=== PATIENT | female | born 1945 | race Caucasian/White ===

== ENCOUNTER → 2022-06-22 10:51 | Outpatient (CLI) | payer MEDICARE, SELFPAY ==
[2022-06-22 19:31] LABS: Alanine Aminotransferase 50 IU/L (<35); Albumin 3.3 g/dL (3.5-5.0); Albumin Globulin Ratio 1.2 (1.0-2.8); Alkaline Phosphatase 130 U/L (38-126); Aspartate Aminotransferase 62 IU/L (14-36); BUN Creatinine Ratio 31.8 (6-22); Bilirubin Total 0.4 mg/dL (0.2-1.3); Blood Urea Nitrogen 21 mg/dL (7-17); Calcium 8.6 mg/dL (8.4-10.2); Carbon Dioxide 26 mmol/L (22-32); Chloride 101 mmol/L (98-107); Estimated Glomerular Filt Rate > 60 mL/min (>60); Globulin 2.8 g/dL (1.7-4.1); Glucose 103 mg/dL (80-110); HEMOLYSIS < 15 (0-50); Potassium 4.5 mmol/L (3.4-5.1); Sodium 135 mmol/L (137-145); Total Protein 6.1 g/dL (6.3-8.2)
[2022-06-22 20:12] LABS: Add Manual Diff / Slide Review NO; Basophils Absolute Auto 100 /uL (0-100); Basophils Percent Auto 0.6 % (0-2); Eosinophils Absolute Auto 100 /uL (0-450); Eosinophils Percent Auto 0.6 % (2-4); Hematocrit 32.7 % (36-46); Lymphocytes Absolute Auto 1300 /uL (1100-4500); Lymphocytes Percent Auto 11.7 % (25-40); Mean Corpuscular HGB Conc 33.7 % (30-36); Mean Corpuscular Hemoglobin 28.6 PG (26-34); Mean Corpuscular Volume 84.8 fL (80-100); Monocytes Absolute Auto 900 /uL (0-900); Neutrophils Absolute Auto 8500 /uL (1500-7000); Neutrophils Percent Auto 79.1 % (50-75); Platelet Count 335 X10^3/uL (150-400); Red Blood Cell Count 3.86 X10^6/uL (4.0-5.2); Red Cell Distribution Width 14.5 % (11.6-14.8); White Blood Cell Count 10.7 X10^3/uL (4.5-11.0)
--- NOTE | 2022-06-23 12:32 | PC.NURSE ---
Daughter in law called ED with questions as to why patient was needing to be seen in ED. Pt was referred by [facility] provider who spoke with Dr. Worthington. I spoke with Dr. Worthington who told me that after speaking with the [facility] provider and reviewing the patient she did not feel that the patient needed to be seen emergently and that out patient follow up was most likely appropriate. After confirming identity and clearing privacy concerns, I discussed this with the DIL. She states that patient has improved since visit, that other issues are chronic in nature and that patient did not seem off her baseline to her. Pt is eating and drinking well, has no fever or pain and wants to go out for her usual hour long walk and do her squats. I informed her that we did not see patient and that the [facility] provider has therefore I am only passing along a message regarding the communication that occurred. I encouraged her to seek medical attention for her mother in law if there are any changes, concerns and to reach out to the [facility] provider. She verbalized understanding and agreement.
== END ==
PROVIDERS: PCP Physician Assistant; Visit Provider Physician Assistant
DX: Z91.89 Other specified personal risk factors, not elsewhere classified (principal); R39.15 Urgency of urination; R39.0 Extravasation of urine; R15.9 Full incontinence of feces
CPT/HCPCS: 80053; 85025; 87077; 87086; 87177; 87186; 87329

== ENCOUNTER 2023-08-22 14:19 | Inpatient (IN) | payer MEDICARE, SELFPAY ==
[2023-08-22] VITALS (22 sets, daily range): BP systolic 107–121; BP diastolic 63–69; PULSE 57–69; RESP 10–18; TEMP 36.2–36.5; O2SAT 93–100; BMI 18.6; BMI 18.8
--- NOTE | 2023-08-22 14:35 | DI.RAD.S_ITS ---
PROCEDURE: XR HIP W PEL IF DONE LT 2V INDICATIONS: GLF hip pain TECHNIQUE: AP pelvis with lateral view(s) of the left hip(s). COMPARISON: None. FINDINGS: Bones: Subcapital left femoral neck fracture. Pelvic ring appears intact. No suspicious bony lesions. Soft tissues: The visualized bowel gas pattern is normal. No suspicious soft tissue calcifications. IMPRESSION: Mildly displaced left femoral neck fracture. Dictated by: Peggy Nolen MD, PhD on 08/22/2023 at 15:30 Approved by: Peggy Nolen MD, PhD on 08/22/2023 at 15:31
--- NOTE | 2023-08-22 15:38 | DI.RAD.S_ITS ---
PROCEDURE: XR CHEST 1V INDICATIONS: fall TECHNIQUE: One view of the chest was acquired. COMPARISON: None. FINDINGS: Surgical changes and devices: Dual lead cardiac pacer. Lungs and pleura: Lungs are clear. No pleural effusions or pneumothorax. Mediastinum: Mediastinal contours appear normal. Heart size is normal. Bones and chest wall: No suspicious bony lesions. Overlying soft tissues appear unremarkable. IMPRESSION: No acute cardiopulmonary abnormality is seen. Dictated by: Peggy Nolen MD, PhD on 08/22/2023 at 15:55 Approved by: Peggy Nolen MD, PhD on 08/22/2023 at 15:55
--- NOTE | 2023-08-22 15:38 | DI.CT.S_ITS ---
PROCEDURE: CT HEAD/BRAIN WO CON INDICATIONS: fall TECHNIQUE: Noncontrast 4.5 mm thick angled axial sections acquired from the foramen magnum to the vertex, with coronal and sagittal reformats. For radiation dose reduction, the following was used: automated exposure control, adjustment of mA and/or kV according to patient size. COMPARISON: None. FINDINGS: Image quality: Diagnostic. CSF spaces: Basal cisterns are patent. No extra-axial fluid collections. The ventricles are symmetric in size and shape. Brain: No intracranial bleeds or masses. There is cerebral volume loss for age, with resultant ventricular and sulcal prominence. There are periventricular and deep white matter chronic small vessel ischemic changes. 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 There is intracranial internal carotid artery atherosclerosis. Skull and face: Calvarium and visualized facial bones appear intact, without suspicious lesions. Sinuses: Visualized sinuses and mastoids are clear. IMPRESSION: No acute intracranial disease process. Dictated by: Peggy Nolen MD, PhD on 08/22/2023 at 16:24 Approved by: Peggy Nolen MD, PhD on 08/22/2023 at 16:26
[2023-08-22] MEDS: TET,DIPH,PERTUSS(ACELL),VAC/PF 0.5 ML SYRINGE IM (15:48)
[2023-08-22] MEDS: MORPHINE 2 MG/ML INJ IV ×2 (15:48→16:56)
--- NOTE | 2023-08-22 16:07 | ED.FALL ---
HPI - Fall <Ángela Worthington DO - Last Filed: 08/23/23 07:31> General Chief Complaint: Fall Stated Complaint: Fall,hip injury Time Seen by Provider: 08/22/23 15:38 Source: patient and EMS Mode of arrival: EMS History of Present Illness HPI Narrative: Patient 77-year-old female history of hysterectomy, presenting today with ground level fall. She reports that she was a little weak yesterday and today lost her balance falling on [place] left[place] she was ultimately air lifted off. She did hit her head but no loss of consciousness. No antiplatelet or anticoagulation medications. Daughter at bedside reports that she has had some UTIs. She is incontinent with stool and urine. Daughter has noted some blood she thinks it is coming from the vagina despite having a hysterectomy. No fever or chills. Daughter also reports that they do give her packages of electrolytes to help report that she gets frequent lower extremity swelling. Related Data Allergies Allergy/AdvReac Type Severity Reaction Status Date / Time codeine Allergy Verified 08/22/23 14:29 Patient History <Ángela Worthington DO - Last Filed: 08/23/23 07:31> Social History household members: children Smoking Status: Never smoker Smoking Status: Never smoker alcohol intake frequency: other Substance Use Type: does not use Exam <Ángela Worthington DO - Last Filed: 08/23/23 07:31> Initial Vital Signs Initial Vital Signs: Vital Signs Pulse Rate 60 08/22/23 14:28 Respiratory Rate 16 08/22/23 14:28 Pulse Oximetry 99 08/22/23 14:28 GENERAL: Alert pleasant 77-year-old female and in no acute distress. HEENT: Head small abrasion left temporal area,EOMI, pupils reactive, face symmetric, moist mucous membranes, neck supple CARDIOVASCULAR: Regular rate and rhythm without murmurs, rubs or gallops. RESPIRATORY: Breath sounds equal bilaterally, no wheezes rales or rhonchi. ABDOMEN: Soft, nontender. Normoactive bowel sounds all 4 quadrants. No guarding or rebound. EXTREMITIES: Normal range of motion, no clubbing or edema. Neurovascularly intact Tender left hip legs are of equal length distal pedal pulse intact NEUROLOGICAL: Alert and oriented x4. SKIN: Warm, dry, no laceration, no petechiae, no rashes or lesions. <Herbie Huddleston DO - Last Filed: 08/22/23 22:16> Initial Vital Signs Initial Vital Signs: Vital Signs Pulse Rate 60 08/22/23 14:28 Respiratory Rate 16 08/22/23 14:28 Pulse Oximetry 99 08/22/23 14:28 Course <Ángela Worthington DO - Last Filed: 08/23/23 07:31> Orders Ordered: Lactated Ringer's (Lactated Ringers) 1,000 mls @ 100 mls/hr IV CONT BUSHRA Last Admin: 08/22/23 22:50 Dose: 100 mls/hr Documented By: AM Morphine Sulfate (Morphine 2 Mg/Ml Inj) 2 mg IV Q2H PRN PRN Reason: Pain, Moderate (4-6) Last Admin: 08/23/23 00:45 Dose: 2 mg Documented By: FM Naloxone HCl (Naloxone 0.4 Mg/Ml Vial) 0.2 mg IV Q2MIN PRN PRN Reason: Opiate Reversal Ondansetron HCl (Ondansetron 4 Mg/2 Ml Inj) 4 mg IV Q8HR PRN PRN Reason: Nausea And Vomiting Discontinued Medications Diphtheria/Tetanus/Acell Pertussis (Tet,Diph,Pertuss(Acell),Vac/Pf 0.5 Ml Syringe) 0.5 ml IM .ONCE ONE Stop: 08/22/23 15:40 Last Admin: 08/22/23 15:48 Dose: 0.5 ml Documented By: MARIMAR Morphine Sulfate (Morphine 2 Mg/Ml Inj) 2 mg IV NOW ONE Stop: 08/22/23 15:39 Last Admin: 08/22/23 15:48 Dose: 2 mg Documented By: KM Morphine Sulfate (Morphine 2 Mg/Ml Inj) 2 mg IV NOW ONE Stop: 08/22/23 16:47 Last Admin: 08/22/23 16:56 Dose: 2 mg Documented By: KM Morphine Sulfate (Morphine 4 Mg/Ml Inj) 4 mg IV NOW ONE Stop: 08/22/23 18:06 Last Admin: 08/22/23 18:08 Dose: 4 mg Documented By: KM Morphine Sulfate (Morphine 4 Mg/Ml Inj) 2 mg IV Q2HR PENDING SALE TO [facility] Morphine Sulfate (Morphine 4 Mg/Ml Inj) 4 mg IV NOW ONE Stop: 08/22/23 22:02 Last Admin: 08/23/23 00:04 Dose: Not Given Documented By: FM Vital Signs Vital signs: Vital Signs - 8 hr 08/22/23 14:28 08/22/23 14:29 08/22/23 14:30 Temperature 97.7 F Pulse Rate 60 64 58 L Respiratory Rate 16 18 13 Blood Pressure 111/67 Pulse Oximetry 99 99 100 Oxygen Delivery Method Room Air 08/22/23 14:30 08/22/23 15:02 08/22/23 15:23 Temperature Pulse Rate 58 L 57 L Respiratory Rate 18 16 Blood Pressure 113/67 Pulse Oximetry 100 100 Oxygen Delivery Method 08/22/23 15:23 08/22/23 15:30 08/22/23 15:30 Temperature Pulse Rate 60 Respiratory Rate 13 Blood Pressure 117/64 120/67 Pulse Oximetry 100 Oxygen Delivery Method 08/22/23 16:00 08/22/23 16:00 08/22/23 16:30 Temperature Pulse Rate 62 69 Respiratory Rate 12 15 Blood Pressure 116/64 Pulse Oximetry 98 93 Oxygen Delivery Method 08/22/23 17:00 08/22/23 17:12 08/22/23 17:12 Temperature Pulse Rate 57 L 57 L Respiratory Rate 11 L 11 L Blood Pressure 121/69 Pulse Oximetry 96 99 Oxygen Delivery Method 08/22/23 17:30 08/22/23 17:30 08/22/23 18:00 Temperature Pulse Rate 57 L 62 Respiratory Rate 11 L 13 Blood Pressure 116/66 Pulse Oximetry 99 99 Oxygen Delivery Method <Herbie Huddleston DO - Last Filed: 08/22/23 22:16> Orders Ordered: Lactated Ringer's (Lactated Ringers) 1,000 mls @ 100 mls/hr IV CONT BUSHRA Last Admin: 08/22/23 22:50 Dose: 100 mls/hr Documented By: AM Morphine Sulfate (Morphine 2 Mg/Ml Inj) 2 mg IV Q2H PRN PRN Reason: Pain, Moderate (4-6) Last Admin: 08/23/23 00:45 Dose: 2 mg Documented By: FM Naloxone HCl (Naloxone 0.4 Mg/Ml Vial) 0.2 mg IV Q2MIN PRN PRN Reason: Opiate Reversal Ondansetron HCl (Ondansetron 4 Mg/2 Ml Inj) 4 mg IV Q8HR PRN PRN Reason: Nausea And Vomiting Discontinued Medications Diphtheria/Tetanus/Acell Pertussis (Tet,Diph,Pertuss(Acell),Vac/Pf 0.5 Ml Syringe) 0.5 ml IM .ONCE ONE Stop: 08/22/23 15:40 Last Admin: 08/22/23 15:48 Dose: 0.5 ml Documented By: MARIMAR Morphine Sulfate (Morphine 2 Mg/Ml Inj) 2 mg IV NOW ONE Stop: 08/22/23 15:39 Last Admin: 08/22/23 15:48 Dose: 2 mg Documented By: MARIMAR Morphine Sulfate (Morphine 2 Mg/Ml Inj) 2 mg IV NOW ONE Stop: 08/22/23 16:47 Last Admin: 08/22/23 16:56 Dose: 2 mg Documented By: MARIMAR Morphine Sulfate (Morphine 4 Mg/Ml Inj) 4 mg IV NOW ONE Stop: 08/22/23 18:06 Last Admin: 08/22/23 18:08 Dose: 4 mg Documented By: MARIMAR Morphine Sulfate (Morphine 4 Mg/Ml Inj) 2 mg IV Q2HR PENDING SALE TO [facility] Morphine Sulfate (Morphine 4 Mg/Ml Inj) 4 mg IV NOW ONE Stop: 08/22/23 22:02 Last Admin: 08/23/23 00:04 Dose: Not Given Documented By: JAN Vital Signs Vital signs: Vital Signs - 8 hr 08/22/23 14:28 08/22/23 14:29 08/22/23 14:30 Temperature 97.7 F Pulse Rate 60 64 58 L Respiratory Rate 16 18 13 Blood Pressure 111/67 Pulse Oximetry 99 99 100 Oxygen Delivery Method Room Air 08/22/23 14:30 08/22/23 15:02 08/22/23 15:23 Temperature Pulse Rate 58 L 57 L Respiratory Rate 18 16 Blood Pressure 113/67 Pulse Oximetry 100 100 Oxygen Delivery Method 08/22/23 15:23 08/22/23 15:30 08/22/23 15:30 Temperature Pulse Rate 60 Respiratory Rate 13 Blood Pressure 117/64 120/67 Pulse Oximetry 100 Oxygen Delivery Method 08/22/23 16:00 08/22/23 16:00 08/22/23 16:30 Temperature Pulse Rate 62 69 Respiratory Rate 12 15 Blood Pressure 116/64 Pulse Oximetry 98 93 Oxygen Delivery Method 08/22/23 17:00 08/22/23 17:12 08/22/23 17:12 Temperature Pulse Rate 57 L 57 L Respiratory Rate 11 L 11 L Blood Pressure 121/69 Pulse Oximetry 96 99 Oxygen Delivery Method 08/22/23 17:30 08/22/23 17:30 08/22/23 18:00 Temperature Pulse Rate 57 L 62 Respiratory Rate 11 L 13 Blood Pressure 116/66 Pulse Oximetry 99 99 Oxygen Delivery Method MDM - Fall <Ángela Worthington, DO - Last Filed: 08/23/23 07:31> Lab Data 08/22/23 15:55 08/22/23 15:55 Labs: Lab Results 08/22/23 08/22/23 Range/Units 15:55 16:45 WBC 13.5 H (4.5-11.0) X10^3/uL RBC 4.21 (4.0-5.2) X10^6/uL Hgb 10.3 L (12.0-16.0) g/dL Hct 31.7 L (36-46) % MCV 75.3 L (80-100) fL MCH 24.5 L (26-34) PG MCHC 32.5 (30-36) % RDW 16.5 H (11.6-14.8) % Plt Count 316 (150-400) X10^3/uL Neut % (Auto) 90.9 H (50-75) % Lymph % (Auto) 5.2 L (25-40) % [place] % (Auto) 3.5 (3-14) % Eos % (Auto) 0.0 L (2-4) % Baso % (Auto) 0.4 (0-2) % Neut # (Auto) 77267 H (5967-0346) /uL Lymph # (Auto) 700 L (8379-2567) /uL [place] # (Auto) 500 (0-900) /uL Eos # (Auto) 0 (0-450) /uL Baso # (Auto) 100 (0-100) /uL Sodium 126 L (137-145) mmol/L Potassium 4.1 (3.4-5.1) mmol/L Chloride 94 L (98-107) mmol/L Carbon Dioxide 30 (22-32) mmol/L BUN 16 (7-17) mg/dL Creatinine 0.50 L (0.52-1.04) mg/dL Estimated GFR > 60 (>60) mL/min BUN/Creatinine Ratio 32.0 H (6-22) Glucose 108 (80-110) mg/dL Calcium 8.2 L (8.4-10.2) mg/dL Total Bilirubin 0.5 (0.2-1.3) mg/dL AST 50 H (14-36) IU/L ALT 24 (<35) IU/L Alkaline Phosphatase 101 (38-126) U/L Total Protein 5.5 L (6.3-8.2) g/dL Albumin 2.7 L (3.5-5.0) g/dL Globulin 2.8 (1.7-4.1) g/dL Albumin/Globulin Ratio 1.0 (1.0-2.8) Carcinoembryonic Ag 316.0 H (0.1-3.0) ng/mL CA 125 Antigen 11.7 (0-35) U/mL Urine Color Yellow Urine Appearance Clear Urine pH 6.5 (4.5-8.0) Ur Specific [place] 1.020 (1.000-1.035) Urine Protein Negative (Negative) Urine Glucose (UA) Negative (Negative) g/dL Urine Ketones Negative (NEGATIVE) Urine Occult Blood Negative (Negative) Urine Nitrate Negative (Negative) Urine Bilirubin Negative (NEGATIVE) Urine Urobilinogen 2.0 H (0.2) E.U./dL Ur Leukocyte Esterase Negative (NEGATIVE) Urine RBC 0-1/hpf (0-5/HPF) Urine WBC None seen (0-5/HPF) Ur Squamous Epith Cells 0-1 /hpf (0-5/HPF) Urine Bacteria None seen (None) Ur Culture Indicated? Cult not indicated Ur Random Sodium 28 L (30-90) mmol/L Imaging Data CT scan - head: Radiologist's Impression: PROCEDURE: CT HEAD/BRAIN WO CON INDICATIONS: fall TECHNIQUE: Noncontrast 4.5 mm thick angled axial sections acquired from the foramen magnum to the vertex, with coronal and sagittal reformats. For radiation dose reduction, the following was used: automated exposure control, adjustment of mA and/or kV according to patient size. COMPARISON: None. FINDINGS: Image quality: Diagnostic. CSF spaces: Basal cisterns are patent. No extra-axial fluid collections. The ventricles are symmetric in size and shape. Brain: No intracranial bleeds or masses. There is cerebral volume loss for age, with resultant ventricular and sulcal prominence. There are periventricular and deep white matter chronic small vessel ischemic changes. 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 There is intracranial internal carotid artery atherosclerosis. Skull and face: Calvarium and visualized facial bones appear intact, without suspicious lesions. Sinuses: Visualized sinuses and mastoids are clear. IMPRESSION: No acute intracranial disease process. Dictated by: Peggy Nolen MD, PhD on 08/22/2023 at 16:24 Chest x-ray: Radiologist's Impression: PROCEDURE: XR CHEST 1V INDICATIONS: fall TECHNIQUE: One view of the chest was acquired. COMPARISON: None. FINDINGS: Surgical changes and devices: Dual lead cardiac pacer. Lungs and pleura: Lungs are clear. No pleural effusions or pneumothorax. Mediastinum: Mediastinal contours appear normal. Heart size is normal. Bones and chest wall: No suspicious bony lesions. Overlying soft tissues appear unremarkable. IMPRESSION: No acute cardiopulmonary abnormality is seen. Dictated by: Peggy Nolen MD, PhD on 08/22/2023 at 15:55 CT - cervical spine: Radiologist's Impression: PROCEDURE: CT CERVICAL SPINE WO CON INDICATIONS: fall, pain TECHNIQUE: Noncontrast 3 mm thick sections acquired from the skull base to the T4 level. Sagittal and coronal reformats were then constructed. For radiation dose reduction, the following was used: automated exposure control, adjustment of mA and/or kV according to patient size. COMPARISON: None. FINDINGS: Image quality: Excellent. Bones: No fractures or dislocations. Visualized superior ribs are intact. Spine degenerative disc disease and facet arthropathy. Soft tissues: Prevertebral soft tissues are normal in thickness. No paravertebral hematomas. No apical pneumothoraces. Cardiac pacer leads. 1.8 x 1.9 centimeter right upper lobe mass. IMPRESSION: No fracture. No acute osseous lesion. If symptoms and/or clinical suspicion for pathology persists, evaluation with MRI should be considered for further assessment. 1.8 x 1.9 centimeter right upper lobe mass suspicious for primary bronchogenic carcinoma. Recommend nonemergent CT scan of the chest with contrast. Dictated by: Peggy Nolen MD, PhD on 08/22/2023 at 16:30 Approved by: Peggy Nolen MD, PhD on 08/22/2023 at 16 Extremity x-ray #1: Radiologist's Impression: PROCEDURE: XR HIP W PEL IF DONE LT 2V INDICATIONS: GLF hip pain TECHNIQUE: AP pelvis with lateral view(s) of the left hip(s). COMPARISON: None. FINDINGS: Bones: Subcapital left femoral neck fracture. Pelvic ring appears intact. No suspicious bony lesions. Soft tissues: The visualized bowel gas pattern is normal. No suspicious soft tissue calcifications. IMPRESSION: Mildly displaced left femoral neck fracture. Dictated by: Peggy Nolen MD, PhD on 08/22/2023 at 15:30 MDM Narrative Medical decision making narrative: Patient is 77-year-old female presents today with a mechanical ground level fall complaining of left hip pain. She did hit her head but not on anticoagulation. There have been some other symptoms according to daughter she has had some stool incontinence for awhile there was concern for some possible bad bleeding despite having hysterectomy. She has not had fever. Imaging reviewed hip x-ray shows left femoral neck fracture, chest x-ray unremarkable, head CT was negative, cervical spine CT did not show fracture but did show right upper lobe mass. Blood work reviewed mild hyponatremia sodium 126, no JUNE no other electrolyte abnormalities, leukocytosis 13.5, mild anemia hemoglobin 10.[address] Browning ortho updated on patient's symptoms test results, reports that would be beneficial for full scanned determine total versus adan CT chest abdomen pelvis pending results. Patient signed out to Dr. Huddleston. Dr Huddleston: Received turned over. We have patient's history and physical exam and workup up to this point. Patient has quite a bit of concern for metastatic disease based on the CT scan of her chest abdomen pelvis. I had a discussion with Radiology regarding this. Unsure where the exact primary would be however most likely source would be pelvic. It does not appear that the fracture in her left hip is a pathologic fracture. This is most likely from her fall. I discussed the case with Dr. Echeverria orthopedist on-call who stated that he would be able to operate on the patient here at this facility. I then discussed the patient with Dr. Rosenbaum hospitalist on-call who will admit for further evaluation and treatment. I did discuss the findings of the CT scan with the patient and family at bedside. They expressed understanding and agreement with plan. <Herbie Huddleston, - Last Filed: 08/22/23 22:16> Lab Data Labs: Lab Results 08/22/23 08/22/23 Range/Units 15:55 16:45 WBC 13.5 H (4.5-11.0) X10^3/uL RBC 4.21 (4.0-5.2) X10^6/uL Hgb 10.3 L (12.0-16.0) g/dL Hct 31.7 L (36-46) % MCV 75.3 L (80-100) fL MCH 24.5 L (26-34) PG MCHC 32.5 (30-36) % RDW 16.5 H (11.6-14.8) % Plt Count 316 (150-400) X10^3/uL Neut % (Auto) 90.9 H (50-75) % Lymph % (Auto) 5.2 L (25-40) % [place] % (Auto) 3.5 (3-14) % Eos % (Auto) 0.0 L (2-4) % Baso % (Auto) 0.4 (0-2) % Neut # (Auto) 55761 H (8489-0265) /uL Lymph # (Auto) 700 L (9374-3922) /uL [place] # (Auto) 500 (0-900) /uL Eos # (Auto) 0 (0-450) /uL Baso # (Auto) 100 (0-100) /uL Sodium 126 L (137-145) mmol/L Potassium 4.1 (3.4-5.1) mmol/L Chloride 94 L (98-107) mmol/L Carbon Dioxide 30 (22-32) mmol/L BUN 16 (7-17) mg/dL Creatinine 0.50 L (0.52-1.04) mg/dL Estimated GFR > 60 (>60) mL/min BUN/Creatinine Ratio 32.0 H (6-22) Glucose 108 (80-110) mg/dL Calcium 8.2 L (8.4-10.2) mg/dL Total Bilirubin 0.5 (0.2-1.3) mg/dL AST 50 H (14-36) IU/L ALT 24 (<35) IU/L Alkaline Phosphatase 101 (38-126) U/L Total Protein 5.5 L (6.3-8.2) g/dL Albumin 2.7 L (3.5-5.0) g/dL Globulin 2.8 (1.7-4.1) g/dL Albumin/Globulin Ratio 1.0 (1.0-2.8) Carcinoembryonic Ag 316.0 H (0.1-3.0) ng/mL CA 125 Antigen 11.7 (0-35) U/mL Urine Color Yellow Urine Appearance Clear Urine pH 6.5 (4.5-8.0) Ur Specific [place] 1.020 (1.000-1.035) Urine Protein Negative (Negative) Urine Glucose (UA) Negative (Negative) g/dL Urine Ketones Negative (NEGATIVE) Urine Occult Blood Negative (Negative) Urine Nitrate Negative (Negative) Urine Bilirubin Negative (NEGATIVE) Urine Urobilinogen 2.0 H (0.2) E.U./dL Ur Leukocyte Esterase Negative (NEGATIVE) Urine RBC 0-1/hpf (0-5/HPF) Urine WBC None seen (0-5/HPF) Ur Squamous Epith Cells 0-1 /hpf (0-5/HPF) Urine Bacteria None seen (None) Ur Culture Indicated? Cult not indicated Ur Random Sodium 28 L (30-90) mmol/L Imaging Data CT chest abdomen pelvis: Radiologist's Impression: PROCEDURE: CT CHEST ABD PEL W CON INDICATIONS: lumg mass TECHNIQUE: After the administration of intravenous contrast, 5 mm thick sections acquired from the lung apices to the symphysis. 5 mm coronal and sagittal reformats were performed, with additional 7 mm MIP reformats through the lungs. For radiation dose reduction, the following was used: automated exposure control, adjustment of mA and/or kV according to patient size. COMPARISON: [facility], CR, XR HIP W PEL IF DONE LT 2V, 08/22/2023, 14:45. FINDINGS: Image quality: Diagnostic. CHEST: Lower Neck: No enlarged lymph nodes. Thyroid: No thyroid nodules which require sonographic follow up, per consensus guidelines. Axillae: No enlarged lymph nodes. Chest Wall: Unremarkable. Bones: Visualized osseous structures appear intact without acute fracture or focal destructive lesion. No acute compression fractures of the imaged spine. Multilevel spondylosis of the imaged thoracic spine. Lungs and Pleura: Bibasilar atelectasis. There is an irregular 1.8 x 1.9 cm pulmonary nodule in the right upper lobe (86/series 3). Faint 5 mm ground-glass nodule in the right middle lobe (185/series 3). Heart: Heart size is normal. No pericardial effusion. Thoracic Vessels: The aorta and pulmonary arteries demonstrate normal size. Mediastinum and [place]: No enlarged lymph nodes. Esophagus: No wall thickening. Small hiatal hernia. ABDOMEN: Liver: Numerous ill-defined heterogeneously enhancing hepatic hypodense masses compatible with metastatic disease. These are seen in the bilateral hepatic lobes. Gallbladder: Gallbladder appears mildly contracted with thickened wall and pericholecystic fluid. There is mild prominence of the common bile duct. Biliary ducts: Mild central biliary ductal prominence. Findings are most pronounced in the left hepatic lobe. Pancreas: No suspicious ductal dilation. No peripancreatic inflammation. Spleen: Size is within normal limits. Adrenal Glands: There is an indeterminate left adrenal nodule measuring 2.7 cm. There appears to be post surgical clips in the right adrenal fossa. Kidneys and Ureters: No hydronephrosis. No solid mass. No complex renal cystic lesion which requires follow up. Stomach and Bowel: Extensive fecal material seen throughout the colon. Nonspecific fluid-filled small bowel. No evidence to suggest small bowel obstruction. Normal colonic caliber, without significant wall thickening. No evidence for abnormal wall thickening. No acute inflammatory changes noted. Peritoneum: No abnormal intraperitoneal fluid. No free air. Ventral Wall: No hernia. Abdominal Nodes: No retroperitoneal or mesenteric adenopathy by size criteria. Vessels: Aorta and inferior vena cava are normal in size. PELVIS: Pelvic Organs/urinary bladder: Urinary bladder is decompressed by [place] catheter which appears to be separate and anterior to a large, heterogeneously enhancing pelvic mass measuring approximately 12.6 cm in craniocaudal dimension and approximately 8.6 x 8.8 cm in axial cross-sectional dimension. A distinct uterus and ovaries is not visualized.. . Pelvic Nodes: No definite pelvic adenopathy. Miscellaneous: No inguinal hernias are seen. Bones: No acute vertebral body compression fractures. Multilevel spondylitic changes throughout the imaged spine. No suspicious osseous lesions.Non-displaced femoral IMPRESSION: 1. Large, heterogeneously enhancing pelvic mass measuring 8.6 x 8.8 x 12.6 cm possibly uterine in origin. This appears to be separate from the decompressed urinary bladder. 2. Numerous, ill-defined heterogeneously enhancing masses within the liver suspicious for metastatic disease. 3. Postsurgical changes previous right adrenal gland resection with a 2.7 cm indeterminate left adrenal nodule. 4. Decompressed gallbladder with wall thickening and pericholecystic fluid. Suggestion of central biliary ductal prominence. A primary biliary tumor not excluded. 5. Irregular 1.9 cm right upper lobe pulmonary nodule. No hilar or mediastinal adenopathy visualized. 6. Very large amount of fecal material seen throughout the entire colon likely related to constipation. 7. Redemonstration of known minimally displaced left proximal femoral neck fracture. No associated suspicious osseous lesion identified. 8. Other chronic findings as above. Findings were discussed with Dr. Huddleston. [facility] Narrative Medical decision making narrative: Dr Huddleston: Received turned over. We have patient's history and physical exam and workup up to this point. Patient has quite a bit of concern for metastatic disease based on the CT scan of her chest abdomen pelvis. I had a discussion with Radiology regarding this. Unsure where the exact primary would be however most likely source would be pelvic. It does not appear that the fracture in her left hip is a pathologic fracture. This is most likely from her fall. I discussed the case with Dr. Echeverria orthopedist on-call who stated that he would be able to operate on the patient here at this facility. I then discussed the patient with Dr. Rosenbaum hospitalist on-call who will admit for further evaluation and treatment. I did discuss the findings of the CT scan with the patient and family at bedside. They expressed understanding and agreement with plan. Discharge Plan Departure Patient Disposition: Admitted As Inpatient Clinical Impression: Hip fracture, Pelvic mass Admit Date/Time: 08/22/23 18:08 Admit Provider: Yo Chaaprro
[2023-08-22 16:10] LABS: Add Manual Diff / Slide Review NO; Basophils Absolute Auto 100 /uL (0-100); Basophils Percent Auto 0.4 % (0-2); Eosinophils Absolute Auto 0 /uL (0-450); Hematocrit 31.7 % (36-46); Hemoglobin 10.3 g/dL (12.0-16.0); Lymphocytes Absolute Auto 700 /uL (1100-4500); Lymphocytes Percent Auto 5.2 % (25-40); Mean Corpuscular HGB Conc 32.5 % (30-36); Mean Corpuscular Hemoglobin 24.5 PG (26-34); Mean Corpuscular Volume 75.3 fL (80-100); Monocytes Absolute Auto 500 /uL (0-900); Monocytes Percent Auto 3.5 % (3-14); Neutrophils Absolute Auto 12300 /uL (1500-7000); Neutrophils Percent Auto 90.9 % (50-75); Platelet Count 316 X10^3/uL (150-400); Red Blood Cell Count 4.21 X10^6/uL (4.0-5.2); Red Cell Distribution Width 16.5 % (11.6-14.8); White Blood Cell Count 13.5 X10^3/uL (4.5-11.0)
--- NOTE | 2023-08-22 16:18 | DI.CT.S_ITS ---
PROCEDURE: CT CERVICAL SPINE WO CON INDICATIONS: fall, pain TECHNIQUE: Noncontrast 3 mm thick sections acquired from the skull base to the T4 level. Sagittal and coronal reformats were then constructed. For radiation dose reduction, the following was used: automated exposure control, adjustment of mA and/or kV according to patient size. COMPARISON: None. FINDINGS: Image quality: Excellent. Bones: No fractures or dislocations. Visualized superior ribs are intact. Spine degenerative disc disease and facet arthropathy. Soft tissues: Prevertebral soft tissues are normal in thickness. No paravertebral hematomas. No apical pneumothoraces. Cardiac pacer leads. 1.8 x 1.9 centimeter right upper lobe mass. IMPRESSION: No fracture. No acute osseous lesion. If symptoms and/or clinical suspicion for pathology persists, evaluation with MRI should be considered for further assessment. 1.8 x 1.9 centimeter right upper lobe mass suspicious for primary bronchogenic carcinoma. Recommend nonemergent CT scan of the chest with contrast. Dictated by: Peggy Nolen MD, PhD on 08/22/2023 at 16:30 Approved by: Peggy Nolen MD, PhD on 08/22/2023 at 16:36
[2023-08-22 16:20] LABS: Alanine Aminotransferase 24 IU/L (<35); Albumin 2.7 g/dL (3.5-5.0); Alkaline Phosphatase 101 U/L (38-126); Aspartate Aminotransferase 50 IU/L (14-36); Bilirubin Total 0.5 mg/dL (0.2-1.3); Blood Urea Nitrogen 16 mg/dL (7-17); Calcium 8.2 mg/dL (8.4-10.2); Carbon Dioxide 30 mmol/L (22-32); Chloride 94 mmol/L (98-107); Estimated Glomerular Filt Rate > 60 mL/min (>60); Globulin 2.8 g/dL (1.7-4.1); Glucose 108 mg/dL (80-110); HEMOLYSIS < 15 (0-50); Potassium 4.1 mmol/L (3.4-5.1); Sodium 126 mmol/L (137-145); Total Protein 5.5 g/dL (6.3-8.2)
--- NOTE | 2023-08-22 16:52 | PC.NURSE ---
Pt's family report pt has had rectal bleeding x 1 month. Before RN placed urinary catheter, it was noted that pt has vaginal bleeding that is serosanguinous. No evidence of blood from rectum.
[2023-08-22 17:01] LABS: Appearance Urine UA CLEAR; Bilirubin Urine UA NEGATIVE (NEGATIVE); Color Urine UA YELLOW; Glucose Urine UA NEGATIVE (Negative); Ketones Urine UA NEGATIVE (NEGATIVE); Leukocyte Esterase Urine UA NEGATIVE (NEGATIVE); Nitrite Urine UA NEGATIVE (Negative); Occult Blood Urine UA NEGATIVE (Negative); Protein Urine UA NEGATIVE (Negative)
[2023-08-22 17:15] LABS: Bacteria Urine None Seen; Culture Indicated Urine Cult Not Indicated; RBC Urine 0-1/HPF (0-5/HPF); Squamous Epithelial Cell Urine 0-1 /HPF (0-5/HPF); WBC Urine None Seen (0-5/HPF); pH Urine UA 6.5 (4.5-8.0)
[2023-08-22 17:18] LABS: Sodium Urine Random 28 mmol/L (30-90)
--- NOTE | 2023-08-22 17:45 | DI.CT.S_ITS ---
PROCEDURE: CT CHEST ABD PEL W CON INDICATIONS: lumg mass TECHNIQUE: After the administration of intravenous contrast, 5 mm thick sections acquired from the lung apices to the symphysis. 5 mm coronal and sagittal reformats were performed, with additional 7 mm MIP reformats through the lungs. For radiation dose reduction, the following was used: automated exposure control, adjustment of mA and/or kV according to patient size. COMPARISON: [facility], CR, XR HIP W PEL IF DONE LT 2V, 08/22/2023, 14:45. FINDINGS: Image quality: Diagnostic. CHEST: Lower Neck: No enlarged lymph nodes. Thyroid: No thyroid nodules which require sonographic follow up, per consensus guidelines. Axillae: No enlarged lymph nodes. Chest Wall: Unremarkable. Bones: Visualized osseous structures appear intact without acute fracture or focal destructive lesion. No acute compression fractures of the imaged spine. Multilevel spondylosis of the imaged thoracic spine. Lungs and Pleura: Bibasilar atelectasis. There is an irregular 1.8 x 1.9 cm pulmonary nodule in the right upper lobe (86/series 3). Faint 5 mm ground-glass nodule in the right middle lobe (185/series 3). Heart: Heart size is normal. No pericardial effusion. Thoracic Vessels: The aorta and pulmonary arteries demonstrate normal size. Mediastinum and Farhana: No enlarged lymph nodes. Esophagus: No wall thickening. Small hiatal hernia. ABDOMEN: Liver: Numerous ill-defined heterogeneously enhancing hepatic hypodense masses compatible with metastatic disease. These are seen in the bilateral hepatic lobes. Gallbladder: Gallbladder appears mildly contracted with thickened wall and pericholecystic fluid. There is mild prominence of the common bile duct. Biliary ducts: Mild central biliary ductal prominence. Findings are most pronounced in the left hepatic lobe. Pancreas: No suspicious ductal dilation. No peripancreatic inflammation. Spleen: Size is within normal limits. Adrenal Glands: There is an indeterminate left adrenal nodule measuring 2.7 cm. There appears to be post surgical clips in the right adrenal fossa. Kidneys and Ureters: No hydronephrosis. No solid mass. No complex renal cystic lesion which requires follow up. Stomach and Bowel: Extensive fecal material seen throughout the colon. Nonspecific fluid-filled small bowel. No evidence to suggest small bowel obstruction. Normal colonic caliber, without significant wall thickening. No evidence for abnormal wall thickening. No acute inflammatory changes noted. Peritoneum: No abnormal intraperitoneal fluid. No free air. Ventral Wall: No hernia. Abdominal Nodes: No retroperitoneal or mesenteric adenopathy by size criteria. Vessels: Aorta and inferior vena cava are normal in size. PELVIS: Pelvic Organs/urinary bladder: Urinary bladder is decompressed by [place] catheter which appears to be separate and anterior to a large, heterogeneously enhancing pelvic mass measuring approximately 12.6 cm in craniocaudal dimension and approximately 8.6 x 8.8 cm in axial cross-sectional dimension. A distinct uterus and ovaries is not visualized.. . Pelvic Nodes: No definite pelvic adenopathy. Miscellaneous: No inguinal hernias are seen. Bones: No acute vertebral body compression fractures. Multilevel spondylitic changes throughout the imaged spine. No suspicious osseous lesions.Non-displaced femoral IMPRESSION: 1. Large, heterogeneously enhancing pelvic mass measuring 8.6 x 8.8 x 12.6 cm possibly uterine in origin. This appears to be separate from the decompressed urinary bladder. 2. Numerous, ill-defined heterogeneously enhancing masses within the liver suspicious for metastatic disease. 3. Postsurgical changes previous right adrenal gland resection with a 2.7 cm indeterminate left adrenal nodule. 4. Decompressed gallbladder with wall thickening and pericholecystic fluid. Suggestion of central biliary ductal prominence. A primary biliary tumor not excluded. 5. Irregular 1.9 cm right upper lobe pulmonary nodule. No hilar or mediastinal adenopathy visualized. 6. Very large amount of fecal material seen throughout the entire colon likely related to constipation. 7. Redemonstration of known minimally displaced left proximal femoral neck fracture. No associated suspicious osseous lesion identified. 8. Other chronic findings as above. Findings were discussed with Dr. Huddleston. Dictated by: Melchor Major M.D. on 08/22/2023 at 19:51 Approved by: Melchor Major M.D. on 08/22/2023 at 20:23
--- NOTE | 2023-08-22 17:46 | P.PN_ITS ---
Subjective Subjective Interval history: Consulted regarding left femoral neck fracture. Lesion has also been noted in chest on cervical spine CT. ED planning to get CT c/a/p which may provide further clarity regarding potential oncologic diagnosis. No oncological features noted on the plain films of the hip. Will review CT pelvis as well to ensure no tumor burden in the effected hip. Fracture is a displaced femoral neck. Surgery will be either a left hip hemiarthroplasty or a left total hip arthroplasty. Will use a cemented Depuy [place] stem irrespective of whether or not an acetabular component is placed. Would proceed with surgery tomorrow afternoon if cleared by medical team. Do not need definitive oncologic diagnosis to move forward with surgery. Determination regarding total hip versus hemiarthroplasty will depend on baseline medical condition as well as any information available regarding lung mass and associated diagnoses. Exam Vital Signs (past 8 hours): - 08/22/23 14:28 08/22/23 14:29 08/22/23 14:30 Temperature 97.7 F Pulse Rate 60 64 58 L Respiratory Rate 16 18 13 Blood Pressure 111/67 Pulse Oximetry 99 99 100 Oxygen Delivery Method Room Air 08/22/23 14:30 08/22/23 15:02 08/22/23 15:23 Temperature Pulse Rate 58 L 57 L Respiratory Rate 18 16 Blood Pressure 113/67 Pulse Oximetry 100 100 Oxygen Delivery Method 08/22/23 15:23 08/22/23 15:30 08/22/23 15:30 Temperature Pulse Rate 60 Respiratory Rate 13 Blood Pressure 117/64 120/67 Pulse Oximetry 100 Oxygen Delivery Method 08/22/23 16:00 08/22/23 16:00 08/22/23 16:30 Temperature Pulse Rate 62 69 Respiratory Rate 12 15 Blood Pressure 116/64 Pulse Oximetry 98 93 Oxygen Delivery Method 08/22/23 17:00 08/22/23 17:12 08/22/23 17:12 Temperature Pulse Rate 57 L 57 L Respiratory Rate 11 L 11 L Blood Pressure 121/69 Pulse Oximetry 96 99 Oxygen Delivery Method Oxygen Delivery Method Room Air Objective Labs 08/22/23 15:55 08/22/23 15:55 Labs: Laboratory Results - last 24 hr 08/22/23 08/22/23 15:55 16:45 WBC 13.5 H RBC 4.21 Hgb 10.3 L Hct 31.7 L MCV 75.3 L MCH 24.5 L MCHC 32.5 RDW 16.5 H Plt Count 316 Neut % (Auto) 90.9 H Lymph % (Auto) 5.2 L [place] % (Auto) 3.5 Eos % (Auto) 0.0 L Baso % (Auto) 0.4 Neut # (Auto) 51289 H Lymph # (Auto) 700 L [place] # (Auto) 500 Eos # (Auto) 0 Baso # (Auto) 100 Sodium 126 L Potassium 4.1 Chloride 94 L Carbon Dioxide 30 BUN 16 Creatinine 0.50 L Estimated GFR > 60 BUN/Creatinine Ratio 32.0 H Glucose 108 Calcium 8.2 L Total Bilirubin 0.5 AST 50 H ALT 24 Alkaline Phosphatase 101 Total Protein 5.5 L Albumin 2.7 L Globulin 2.8 Albumin/Globulin Ratio 1.0 Urine Color Yellow Urine Appearance Clear Urine pH 6.5 Ur Specific [place] 1.020 Urine Protein Negative Urine Glucose (UA) Negative Urine Ketones Negative Urine Occult Blood Negative Urine Nitrate Negative Urine Bilirubin Negative Urine Urobilinogen 2.0 H Ur Leukocyte Esterase Negative Urine RBC 0-1/hpf Urine WBC None seen Ur Squamous Epith Cells 0-1 /hpf Urine Bacteria None seen Ur Culture Indicated? Cult not indicated Ur Random Sodium 28 L PFSH Social History Smoking Status: Never smoker
[2023-08-22] MEDS: MORPHINE 4 MG/ML INJ IV (18:08)
[2023-08-22 20:07] LABS: Cancer Antigen 125 11.7 U/mL (0-35)
--- NOTE | 2023-08-22 22:12 | PM.PN.1 ---
Subjective Subjective Interval history: CT chest abdomen pelvis reviewed. No signs of tumor involvement in fractured left hip. Multifocal lesions noted by radiologist. Plan for hemiarthroplasty given presumed metastatic disease. Will be happy to coordinate with another surgical service to enable biopsy at the time of left hip hemiarthroplasty. Case will be performed on a Meherrin table but will attempt to make accomodations and coordinate to allow biopsy during same anesthetic if deemed appropriate by another surgical service. Exam Vital Signs (past 8 hours): - 08/22/23 14:28 08/22/23 14:29 08/22/23 14:30 Temperature 97.7 F Pulse Rate 60 64 58 L Respiratory Rate 16 18 13 Blood Pressure 111/67 Pulse Oximetry 99 99 100 Oxygen Delivery Method Room Air 08/22/23 14:30 08/22/23 15:02 08/22/23 15:23 Temperature Pulse Rate 58 L 57 L Respiratory Rate 18 16 Blood Pressure 113/67 Pulse Oximetry 100 100 Oxygen Delivery Method 08/22/23 15:23 08/22/23 15:30 08/22/23 15:30 Temperature Pulse Rate 60 Respiratory Rate 13 Blood Pressure 117/64 120/67 Pulse Oximetry 100 Oxygen Delivery Method 08/22/23 16:00 08/22/23 16:00 08/22/23 16:30 Temperature Pulse Rate 62 69 Respiratory Rate 12 15 Blood Pressure 116/64 Pulse Oximetry 98 93 Oxygen Delivery Method 08/22/23 17:00 08/22/23 17:12 08/22/23 17:12 Temperature Pulse Rate 57 L 57 L Respiratory Rate 11 L 11 L Blood Pressure 121/69 Pulse Oximetry 96 99 Oxygen Delivery Method 08/22/23 17:30 08/22/23 17:30 08/22/23 18:00 Temperature Pulse Rate 57 L 62 Respiratory Rate 11 L 13 Blood Pressure 116/66 Pulse Oximetry 99 99 Oxygen Delivery Method 08/22/23 18:12 08/22/23 18:12 08/22/23 18:30 Temperature Pulse Rate 61 Respiratory Rate 12 Blood Pressure 116/69 116/68 Pulse Oximetry 99 Oxygen Delivery Method 08/22/23 19:00 08/22/23 19:00 08/22/23 19:30 Temperature Pulse Rate 61 59 L Respiratory Rate 10 L 11 L Blood Pressure 113/63 Pulse Oximetry 98 98 Oxygen Delivery Method 08/22/23 19:30 08/22/23 20:00 08/22/23 20:00 Temperature Pulse Rate 59 L Respiratory Rate 18 Blood Pressure 113/67 109/65 Pulse Oximetry 97 Oxygen Delivery Method Oxygen Delivery Method Room Air Objective Labs 08/22/23 15:55 08/22/23 15:55 Labs: Laboratory Results - last 24 hr 08/22/23 08/22/23 15:55 16:45 WBC 13.5 H RBC 4.21 Hgb 10.3 L Hct 31.7 L MCV 75.3 L MCH 24.5 L MCHC 32.5 RDW 16.5 H Plt Count 316 Neut % (Auto) 90.9 H Lymph % (Auto) 5.2 L [place] % (Auto) 3.5 Eos % (Auto) 0.0 L Baso % (Auto) 0.4 Neut # (Auto) 89845 H Lymph # (Auto) 700 L [place] # (Auto) 500 Eos # (Auto) 0 Baso # (Auto) 100 Sodium 126 L Potassium 4.1 Chloride 94 L Carbon Dioxide 30 BUN 16 Creatinine 0.50 L Estimated GFR > 60 BUN/Creatinine Ratio 32.0 H Glucose 108 Calcium 8.2 L Total Bilirubin 0.5 AST 50 H ALT 24 Alkaline Phosphatase 101 Total Protein 5.5 L Albumin 2.7 L Globulin 2.8 Albumin/Globulin Ratio 1.0 Carcinoembryonic Ag 316.0 H CA 125 Antigen 11.7 Urine Color Yellow Urine Appearance Clear Urine pH 6.5 Ur Specific [place] 1.020 Urine Protein Negative Urine Glucose (UA) Negative Urine Ketones Negative Urine Occult Blood Negative Urine Nitrate Negative Urine Bilirubin Negative Urine Urobilinogen 2.0 H Ur Leukocyte Esterase Negative Urine RBC 0-1/hpf Urine WBC None seen Ur Squamous Epith Cells 0-1 /hpf Urine Bacteria None seen Ur Culture Indicated? Cult not indicated Ur Random Sodium 28 L PFSH Social History Smoking Status: Never smoker
[2023-08-22] MEDS: LACTATED RINGERS 1,000 ML 100 ML IV (22:50)
[2023-08-23] VITALS (14 sets, daily range): BP systolic 97–161; BP diastolic 57–77; PULSE 62–96; RESP 12–20; TEMP 35.7–37.5; O2SAT 92–100; BMI 18.8
--- NOTE | 2023-08-23 | DI.RAD.S_ITS ---
PROCEDURE: XR HIP W PEL IF DONE LT 2V INDICATIONS: REPLACEMENT TECHNIQUE: 2 view(s) of the hip acquired. COMPARISON: [facility], [place], XR HIP W PEL IF DONE LT 2V, 08/23/2023, 18:14. [facility], [place], XR HIP W PEL IF DONE LT 2V, 08/22/2023, 14:45. FINDINGS: Bones: Left hip arthroplasty. [id number] right hip arthrosis. Soft tissues: Postsurgical changes. IMPRESSION: Expected postsurgical appearance of the left hip arthroplasty. Dictated by: Tho Colin M.D. on 08/23/2023 at 20:18 Approved by: Tho Colin M.D. on 08/23/2023 at 20:18
--- NOTE | 2023-08-23 | PATH_ITS ---
[facility] Accession Number: [id number] No. of containers..02 Tissue . 01 Material submitted: . PART A: femur - LEFT FEMORAL NECK PART B: femur - LEFT FEMORAL MARROW . 01 Diagnosis: A. Left Femur Neck, Excision: Degenerative joint disease changes. No occult metastatic malignancy identified in manufacturer representative sections submitted. See comment. . B. Left Femoral Marrow, Biopsy: Marrow with maturing trilineage hematopoiesis. No distinct lymphoid or plasma cell aggregates identified. No occult metastatic malignancy identified in manufacturer representative sections submitted. See comment. MRV 09/05/2023 1357 Local . 01 Comment: Per patient's chart note, a midline pelvic mass and possible lung and liver metastatic nodules are identified. An RAHEEM immunostain performed to evaluate for occult metastatic malignancy and is negative. Controls stain appropriately. . 01 Electronically signed: . Lexy Gordillo MD, Pathologist NPI- [id number] . 01 Gross description: . A. Received in formalin, labeled with the patient's name, , and left femoral head, consists of a dewitt femoral head measuring 4.9 x 4.7 x 3.0 cm with no attached femoral neck. The margin is inked blue. The articular surface is dewitt with a roughened area adjacent to the fovea measuring 3.2 x 2.0 cm. The remaining articular cartilage is smooth with no evidence of eburnation or osteophytes identified. Sectioning reveals dewitt to brown, trabecular osseous tissue with no distinct lesions or pale wedge-shaped areas identified. Hardness Inspector sections are submitted in cassettes A1-A3 following decalcification. B. Received in formalin, labeled with the patient's name, , and left femoral marrow, consists of multiple fragments of dewitt osseous tissue admixed with hemorrhagic material and adipose aggregating to 4.0 x 2.6 x 0.3 cm. Filtered and submitted entirely in cassettes B1-B2 following decalcification. ([id number]) /MRV 08/25/2023 1000 Local . 01 Pathologist provided ICD-10: S72.002A . 01 CPT . 436315, 612307, 671052, 101704, [id number] Specimen Comment: A courtesy copy of this report has been sent to [facility] Pathology Performed at: [address] [facility] [address] [place] [address] [address], [place], [place] [id number] MD Anthony Hernandez MD Phone: [phone]
[2023-08-23] MEDS: MORPHINE 2 MG/ML INJ IV ×4 (00:45→13:50)
--- NOTE | 2023-08-23 04:22 | PM.HP.1 ---
History of Present Illness History of Present Illness Date Patient Seen: 08/22/23 Chief complaint: Fall,hip injury Narrative: 77 y/o without significant PMH, some recurrent UTIs and, more recently fecal incontinence, sustained GLF with Lt femoral neck fracture. In addition imaging showing likely metastatic, primary GI malignancy. Tumor markers done earlier today possibly pointing to colon cancer PFSH Social History household members: children Smoking Status: Never smoker Meds Home Medications and Allergies Allergies Allergy/AdvReac Type Severity Reaction Status Date / Time codeine Allergy Verified 08/22/23 14:29 Review of Systems Review of Systems Narrative: generalized weakness Constitutional Comments: w/o fever or chills Gastrointestinal Comments: recent stool incontinence Genitourinary Comments: history of recurrent UTI, w/o dysuria on admission Neurologic Comments: w/o headache or seizures Exam Vital Signs (past 8 hours): - 08/22/23 20:30 08/22/23 20:30 08/22/23 21:00 Temperature Pulse Rate 59 L Respiratory Rate 11 L Blood Pressure 114/66 119/69 Pulse Oximetry 99 Oxygen Flow Rate 08/22/23 21:00 08/22/23 21:30 08/22/23 21:30 Temperature Pulse Rate 60 58 L Respiratory Rate 12 18 Blood Pressure 117/67 Pulse Oximetry 98 99 Oxygen Flow Rate 08/22/23 22:00 08/22/23 22:00 08/22/23 22:40 Temperature 97.2 F L Pulse Rate 60 60 Respiratory Rate 12 16 Blood Pressure 107/68 110/64 Pulse Oximetry 98 98 Oxygen Flow Rate 0 08/23/23 02:00 Temperature 98.6 F Pulse Rate 72 Respiratory Rate 16 Blood Pressure 115/68 Pulse Oximetry 98 Oxygen Flow Rate 0 Oxygen Delivery Method Room Air Oxygen Flow Rate 0 Narrative Exam Narrative: sitting in bed in no distress Eyes Other: eomi Resp Other: normal respiratory effort Cardio Other: RRR Skin Other: not jaundiced Neuro Other: w/o deficits Extrem Other: chronic bipedal swelling, Lt > Rt Objective Labs 08/22/23 15:55 08/22/23 15:55 Labs: Laboratory Results - last 24 hr 08/22/23 08/22/23 15:55 16:45 WBC 13.5 H RBC 4.21 Hgb 10.3 L Hct 31.7 L MCV 75.3 L MCH 24.5 L MCHC 32.5 RDW 16.5 H Plt Count 316 Neut % (Auto) 90.9 H Lymph % (Auto) 5.2 L [place] % (Auto) 3.5 Eos % (Auto) 0.0 L Baso % (Auto) 0.4 Neut # (Auto) 28466 H Lymph # (Auto) 700 L [place] # (Auto) 500 Eos # (Auto) 0 Baso # (Auto) 100 Sodium 126 L Potassium 4.1 Chloride 94 L Carbon Dioxide 30 BUN 16 Creatinine 0.50 L Estimated GFR > 60 BUN/Creatinine Ratio 32.0 H Glucose 108 Calcium 8.2 L Total Bilirubin 0.5 AST 50 H ALT 24 Alkaline Phosphatase 101 Total Protein 5.5 L Albumin 2.7 L Globulin 2.8 Albumin/Globulin Ratio 1.0 Carcinoembryonic Ag 316.0 H CA 125 Antigen 11.7 Urine Color Yellow Urine Appearance Clear Urine pH 6.5 Ur Specific [place] 1.020 Urine Protein Negative Urine Glucose (UA) Negative Urine Ketones Negative Urine Occult Blood Negative Urine Nitrate Negative Urine Bilirubin Negative Urine Urobilinogen 2.0 H Ur Leukocyte Esterase Negative Urine RBC 0-1/hpf Urine WBC None seen Ur Squamous Epith Cells 0-1 /hpf Urine Bacteria None seen Ur Culture Indicated? Cult not indicated Ur Random Sodium 28 L Assessment & Plan Assessment and plan (1) Fracture of femoral neck, left: Status: Acute Plan: - Needs hemiarthroplasty - NPO, IVFs, pain management (2) Gastrointestinal malignancy: Status: Acute Plan: High CEA, needs colonoscopy, possible metastatic colon cancer Hx of hysterectomy with low CA 125 (3) Fecal incontinence: Qualifiers: Fecal incontinence type: full incontinence of feces Qualified Code(s): R15.9 - Full incontinence of feces Status: Acute Plan: could be related to above (4) Hyponatremia: Status: Acute Plan: likely related to metastatic malignancy (5) Anemia: Status: Acute Plan: suspected chronic, intermittent GI loss
--- NOTE | 2023-08-23 05:58 | PC.NURSE ---
Noted minimal serosanguinous vaginal discharge during indwelling barajas catheter and joann care.
[2023-08-23 07:40] LABS: Add Manual Diff / Slide Review NO; Basophils Absolute Auto 100 /uL (0-100); Basophils Percent Auto 0.5 % (0-2); Eosinophils Absolute Auto 100 /uL (0-450); Eosinophils Percent Auto 0.8 % (2-4); Hematocrit 30.6 % (36-46); Lymphocytes Absolute Auto 900 /uL (1100-4500); Lymphocytes Percent Auto 9.3 % (25-40); Mean Corpuscular HGB Conc 32.7 % (30-36); Mean Corpuscular Hemoglobin 24.7 PG (26-34); Mean Corpuscular Volume 75.6 fL (80-100); Monocytes Absolute Auto 700 /uL (0-900); Monocytes Percent Auto 6.8 % (3-14); Neutrophils Absolute Auto 7900 /uL (1500-7000); Neutrophils Percent Auto 82.6 % (50-75); Platelet Count 310 X10^3/uL (150-400); Red Blood Cell Count 4.04 X10^6/uL (4.0-5.2); Red Cell Distribution Width 16.8 % (11.6-14.8); White Blood Cell Count 9.6 X10^3/uL (4.5-11.0)
[2023-08-23 07:50] LABS: Blood Urea Nitrogen 14 mg/dL (7-17); Carbon Dioxide 27 mmol/L (22-32); Chloride 96 mmol/L (98-107); Estimated Glomerular Filt Rate > 60 mL/min (>60); Glucose 140 mg/dL (80-110); HEMOLYSIS < 15 (0-50); Potassium 3.9 mmol/L (3.4-5.1); Sodium 126 mmol/L (137-145)
[2023-08-23] MEDS: SODIUM CHLORIDE 0.9% 1,000 ML 100 ML IV ×3 (08:27→17:06)
--- NOTE | 2023-08-23 09:16 | P.PN_ITS ---
Subjective Subjective Interval history: 77 year old female admitted after a fall with a left femoral neck fracture. Patient states she was in the bathroom with possible syncope, though daughter in law denies she syncopized but did not witness the fall. She has been having stool incontinence with occasional brbpr from presumed hemorrhoid for quite a while. There was also some blood around barajas catheter after insertion yesterday. She had intentional weight loss about 5 years ago after her mother , but has been active and doing well up until her fall. Pain is controlled this morning. She has no abdominal pain, nausea, or vomiting. I had prolonged discussion about her imaging noted yesterday. That it is likely a stage IV cancer, and if any treatment is offered typically it is palliative in nature. Patient wishes to remain full code and pursue full treatment at this time. Exam Vital Signs (past 8 hours): - 08/23/23 02:00 08/23/23 05:38 08/23/23 07:00 Temperature 98.6 F 98.6 F Pulse Rate 72 86 Respiratory Rate 16 17 Blood Pressure 115/68 110/60 Pulse Oximetry 98 96 Oxygen Delivery Method Room Air Oxygen Flow Rate 0 0 08/23/23 08:09 Temperature 98.3 F Pulse Rate 72 Respiratory Rate 20 Blood Pressure 104/65 Pulse Oximetry 96 Oxygen Delivery Method Oxygen Flow Rate Oxygen Delivery Method Room Air Oxygen Flow Rate 0 Narrative Exam Narrative: Gen: no acute distress in hospital bed Abd: soft, non-tender, non-distended, some firmness in lower abdomen no discrete palpable mass CV: RRR no m/r/g Pulm: CTA b/l with poor inspiratory efford Ext: no edema or joint effusion Neuro: awake, alert, defers some timeline answers to family at bedside, no focal deficits. Objective Labs 08/23/23 07:30 08/23/23 07:30 Labs: Laboratory Results - last 24 hr 08/22/23 08/22/23 08/23/23 15:55 16:45 07:30 WBC 13.5 H 9.6 RBC 4.21 4.04 Hgb 10.3 L 10.0 L Hct 31.7 L 30.6 L MCV 75.3 L 75.6 L MCH 24.5 L 24.7 L MCHC 32.5 32.7 RDW 16.5 H 16.8 H Plt Count 316 310 Neut % (Auto) 90.9 H 82.6 H Lymph % (Auto) 5.2 L 9.3 L [place] % (Auto) 3.5 6.8 Eos % (Auto) 0.0 L 0.8 L Baso % (Auto) 0.4 0.5 Neut # (Auto) 78394 H 7900 H Lymph # (Auto) 700 L 900 L [place] # (Auto) 500 700 Eos # (Auto) 0 100 Baso # (Auto) 100 100 Sodium 126 L 126 L Potassium 4.1 3.9 Chloride 94 L 96 L Carbon Dioxide 30 27 BUN 16 14 Creatinine 0.50 L 0.50 L Estimated GFR > 60 > 60 BUN/Creatinine Ratio 32.0 H 28.0 H Glucose 108 140 H Calcium 8.2 L 8.0 L Total Bilirubin 0.5 AST 50 H ALT 24 Alkaline Phosphatase 101 Total Protein 5.5 L Albumin 2.7 L Globulin 2.8 Albumin/Globulin Ratio 1.0 Carcinoembryonic Ag 316.0 H CA 125 Antigen 11.7 Urine Color Yellow Urine Appearance Clear Urine pH 6.5 Ur Specific [place] 1.020 Urine Protein Negative Urine Glucose (UA) Negative Urine Ketones Negative Urine Occult Blood Negative Urine Nitrate Negative Urine Bilirubin Negative Urine Urobilinogen 2.0 H Ur Leukocyte Esterase Negative Urine RBC 0-1/hpf Urine WBC None seen Ur Squamous Epith Cells 0-1 /hpf Urine Bacteria None seen Ur Culture Indicated? Cult not indicated Ur Random Sodium 28 L PFSH Social History household members: children Smoking Status: Never smoker Assessment & Plan Assessment & Plan narrative: 1. Left femoral neck fracture, pathologic, secondary to osteoporosis - no malignant involvement based on CT imaging - orthopedics consulted - NPO for now, prn pain control ordered. - PT/OT after surgery. - SNF may not be an option after discharge with oncology needs. Though patient was quite active leading up to her fall, so possible patient will be able to discharge home a couple of days after surgical procedure. 2. 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 - discussed with general surgery today. They are coordinating with orthopedic provider to discuss optimal timing for biopsy. Either intra-operatively with orthopedics or with colonoscopy/flex-sig? in the near future. 3. Hyponatremia - Na 125, unclear chronicity. Likely somewhat hypovolemic. Urine Na is 28 which is indeterminant. Will trial IV fluids while NPO, but if worsening will change to fluid restriction and salt tablets. 4. Suspected chronic microcytic anemia - suspect secondary to chronic blood loss from pelvic mass as noted above. - Goal Hg >7. 5. Advanced care planning - I spent 20 minutes involved in the advanced care planning of this patient. POLST form was completed. Daughter in law would like to sign durable medical power of corporate associate attorney paperwork as well. We discussed the patient's current situation, including barriers to discharge and barriers to cancer care at [place] with her hip fracture and that it can be quite complex in this setting. Family is supportive but concerned about living in a remote location. I suggested looking into options closer to cancer treatment centers if she is able to be discharged as typically cancer treatment is done in that setting. For now her goals of care are pretty clear, she would like full treatment and wants to live as long as possible. She would even want feeding tube should she not be able to swallow. Code: full, surrogate is patient's daughter in law Seema DVT: Lovenox after above surgical procedures Dispo: Admitted inpatient, disposition will depend on a number of things including how well she recovers from her hip fracture, and is further complicated by living in a remote location with difficult access. Case management to help coordinate as case evolves over time.
--- NOTE | 2023-08-23 14:21 | PC.NURSE ---
1421 Pt taken via bed to OR, no further pt contact at this time
[2023-08-23] MEDS: LACTATED RINGERS 1,000 ML 42 ML IV (14:45)
--- NOTE | 2023-08-23 14:59 | P.HP_ITS ---
History of Present Illness History of Present Illness Date Patient Seen: 08/23/23 Time Patient Seen: 15:00 Chief complaint: Fall,hip injury Narrative: 77-year-old female seen in the preoperative holding area today in preparation for surgery. She became faint and fell yesterday sustaining a mildly displaced femoral neck fracture. She has pain in the left hip. It is aggravated by movement and partially alleviated by rest. It has been present since the time of injury. It is severe in nature. She is very active at baseline[place] She does not use ambulatory aids [facility] Social History household members: children Smoking Status: Never smoker alcohol intake: never Meds Home Medications and Allergies Home Medications Medication Instructions Recorded Confirmed Type No Known Home Medications 08/23/23 08/23/23 History Allergies Allergy/AdvReac Type Severity Reaction Status Date / Time codeine Allergy Verified 08/22/23 14:29 Review of Systems Review of Systems ROS: Yes All systems reviewed with the patient and are negative except as otherwise documented Exam Vital Signs (past 8 hours): - 08/23/23 07:00 08/23/23 08:09 08/23/23 12:04 Temperature 98.3 F 97.8 F Pulse Rate 72 62 Respiratory Rate 20 18 Blood Pressure 104/65 107/64 Pulse Oximetry 96 97 Oxygen Delivery Method Room Air Oxygen Flow Rate 08/23/23 14:25 08/23/23 14:31 Temperature 97.2 F L 99.5 F Pulse Rate 82 64 Respiratory Rate 14 18 Blood Pressure 161/65 H 98/60 Pulse Oximetry 95 97 Oxygen Delivery Method Room Air Oxygen Flow Rate 0 Oxygen Delivery Method Room Air Oxygen Flow Rate 0 Narrative Exam Narrative: Left hip examination range of motion deferred. Sensation intact to light touch in L2 through S1 nerve distributions. Flexes and extends toes and ankles Const General: cooperative Orientation: alert and awake HENMT Head: normal to inspection Ears: hearing grossly normal bilaterally Eyes General: appearance normal, both eyes and all related structures Neck Neck: normal visual inspection Resp Effort & Inspection: normal respiratory effort and able to speak in complete sentences Cardio Pulses: other (peripheral pulses present) Skin Lesions: no lesions Rashes: no rashes Neuro General: patient alert, patient awake and moves all extremities Psych Appearance: grossly normal Objective Imaging CT scan - pelvis: My impression: CT scan of the bony pelvis reviewed. This demonstrates a mildly displaced femoral neck fracture. No significant tumor burden is noted in the proximal femur. Plain film radiographs demonstrate the same Labs 08/23/23 07:30 08/23/23 07:30 Labs: Laboratory Results - last 24 hr 08/22/23 08/22/23 08/23/23 15:55 16:45 07:30 WBC 13.5 H 9.6 RBC 4.21 4.04 Hgb 10.3 L 10.0 L Hct 31.7 L 30.6 L MCV 75.3 L 75.6 L MCH 24.5 L 24.7 L MCHC 32.5 32.7 RDW 16.5 H 16.8 H Plt Count 316 310 Neut % (Auto) 90.9 H 82.6 H Lymph % (Auto) 5.2 L 9.3 L George % (Auto) 3.5 6.8 Eos % (Auto) 0.0 L 0.8 L Baso % (Auto) 0.4 0.5 Neut # (Auto) 76235 H 7900 H Lymph # (Auto) 700 L 900 L George # (Auto) 500 700 Eos # (Auto) 0 100 Baso # (Auto) 100 100 Sodium 126 L 126 L Potassium 4.1 3.9 Chloride 94 L 96 L Carbon Dioxide 30 27 BUN 16 14 Creatinine 0.50 L 0.50 L Estimated GFR > 60 > 60 BUN/Creatinine Ratio 32.0 H 28.0 H Glucose 108 140 H Calcium 8.2 L 8.0 L Total Bilirubin 0.5 AST 50 H ALT 24 Alkaline Phosphatase 101 Total Protein 5.5 L Albumin 2.7 L Globulin 2.8 Albumin/Globulin Ratio 1.0 Carcinoembryonic Ag 316.0 H CA 125 Antigen 11.7 Urine Color Yellow Urine Appearance Clear Urine pH 6.5 Ur Specific Colman 1.020 Urine Protein Negative Urine Glucose (UA) Negative Urine Ketones Negative Urine Occult Blood Negative Urine Nitrate Negative Urine Bilirubin Negative Urine Urobilinogen 2.0 H Ur Leukocyte Esterase Negative Urine RBC 0-1/hpf Urine WBC None seen Ur Squamous Epith Cells 0-1 /hpf Urine Bacteria None seen Ur Culture Indicated? Cult not indicated Ur Random Sodium 28 L Assessment & Plan Assessment and plan (1) Fracture of femoral neck, left: Status: Acute Plan Plan to proceed with left hip hemiarthroplasty today. Patient has been marked and consented. Anesthesia has evaluated the patient and is in the process of moving forward with anesthesia. She does have some hyponatremia which is being monitored by anesthesia. She also has this diffuse tumor burden throughout multiple sites. General surgery is planning to do a biopsy of those in the near future after the conclusion of this procedure. I spoke with the general surgeon this morning and they will plan for tissue biopsy of some kind in the near future. We will proceed with a hemiarthroplasty rather than a total hip arthroplasty given the tumor burden which is most consistent with metastasis. She will be weight-bearing as tolerated postoperatively. May require more aggressive anticoagulation given her presumed oncologic diagnosis
[2023-08-23 15:15] LABS: Sodium 127 mmol/L (137-145)
--- NOTE | 2023-08-23 15:35 | CM.DANOTE ---
Initial DCP Assessment Visit Note Reviewed EMR and team rounds for pt's medical status and initial anticipated d/c needs. Met with pt and [id number], Seema, to discuss living circumstances, resources, and potential options that we can discuss further following pt's surgery. Payor: Medicare PCP: Urvashi Corrales Pt is a 77 year-old F who presented to the ED on 08/21/23 following a ground level fall, resulting in fracturing her L-hip. Pt was incontinent of both stool and urine, and was having some vaginal bleeding, which has been happening as of recently, per DIL. CT imaging in the ED showed a R-upper lung mass suspicious for primary bronchogenic carcinoma, a pelvic mass, and multiple hepatic masses. Ortho was consulted and pt was admitted for further tx and evaluation. Surgery was scheduled for later this afternoon. They will also do a colonoscopy while she is in surgery to try to obtain further biopsies to determine if masses are metastatic malignancies. OP Oncology consult will need to follow after her inpt d/c. Pt is single, both her son and DIL live with her on [facility], a [place] [facility] with no ferry service. Pt is also concerned about the cost of ferry travel, lodging while she undergoes an Oncology eval/staging process, and out of pocket costs such as co-pays, etc. This DICER MACHINE OPERATOR did provide pt/DIL some information about cancer patient grants for Oncology patients currently in tx, and explained that once she has an official dx, that her Oncology team can assist her in applying for this rowena, which is for out of pocket costs such as lodging and transportation. DCP will continue to follow and assist with evolving recommendations for d/c. Discharge Planning/Care Management CM Discharge Assessment Start: 08/23/23 14:00 Freq: Status: Active Protocol: Document 08/23/23 15:30 DPL (Rec: 08/23/23 15:35 DPL [id number]) Discharge Planning Assessment Assigned Cryogenics Repairer KASH Esposito Advance Directives? No History Provided By Patient,Family Member,Medical Record Has Patient been admitted in last 30 No days? Prior Living Arrangements House Comment A cabin on [facility], no ferry service available. Household Members children Type of transporation used prior to Drives own vehicle admit Independent with ADL's Yes: Increasing fatigue and weakness has required additional assist. Is patient alert and oriented? Yes Comment Very active at baseline. Caregiver for Another No Patient/Family Preference [facility] Comment Most likely, but pt will also need an OP Oncology consult due to new probable metastatic cancer dx. Barriers to Discharge Yes [place], [place] consult and evaluation. Discharge Plan [facility] Transportation Arrangement [id number] Additional Comment Not yet, waiting until how she does following her surgery later today, and when she is able to work with PT/OT to further determine disposition recommendations. If patient plan is home with home health No : Has signed face to face form been completed? If patient plan is SNF: Has PASSR been No completed? Medicare Choice List Provided No Has Agency SNF been contacted No Comment Pending. Whiteboard Updated in Patient Room with Yes name and ext. # of Cryogenics Repairer Review Status In Process Please Provide Date Initial DC 08/23/23 Assessment Was Performed
[2023-08-23] MEDS: TRANEXAMIC ACID 1,000 MG in SODIUM CHLORIDE 0.9% 100 ML 200 MG IV (17:10)
[2023-08-23] MEDS: CEFAZOLIN 2 GM/100 ML PREMIX 100 ML IV (17:10)
--- NOTE | 2023-08-23 17:18 | P.CONS_ITS ---
History of Present Illness Consult details Date Patient Seen: 08/24/23 Chief complaint: Fall,hip injury Reason for consult: Pelvic Mass w/ probable distant metastases (liver, ? lung) Requesting provider: Yo Chaparro Narrative: Gabbie is a lamin 77 yo , LMP 1998 prior to abdominal hysterectomy for perimenopausal menorrhagia who after being admitted for right hip fracture due to a fall has been found to have an solid, 13 x 9 cm midline pelvic mass which appears to be arising from the rectosigmoid and infiltrating both the pararectal as well as the paravaginal tissues of the upper half of the vagina. The patient denies vaginal bleeding following her hysterectomy up until very recently but has had some episodes of having blood on her continence garment, the origin of which is unclear. Also unclear is whether or not her cervix and/or ovaries remain in-situ following her hysterectomy. The question at hand as the purpose of this consultation is primarily to provide input as to whether the pelvic mass is most likely of [employer] or GI origin. Meds Home Medications and Allergies Home Medications Medication Instructions Recorded Confirmed Type No Known Home Medications 08/23/23 08/23/23 History Allergies Allergy/AdvReac Type Severity Reaction Status Date / Time codeine Allergy Verified 08/22/23 14:29 Review of Systems Review of Systems Narrative: Problem-specific ROS positives included in HPI Exam Vital Signs (past 8 hours): - 08/23/23 12:04 08/23/23 14:25 08/23/23 14:31 Temperature 97.8 F 97.2 F L 99.5 F Pulse Rate 62 82 64 Respiratory Rate 18 14 18 Blood Pressure 107/64 161/65 H 98/60 Pulse Oximetry 97 95 97 Oxygen Delivery Method Room Air Oxygen Flow Rate 0 Oxygen Delivery Method Room Air Oxygen Flow Rate 0 Const General: cooperative and comfortable Nutritional Appearance: average body habitus Orientation: alert and oriented x3 HENMT Head: normal to inspection, normocephalic and atraumatic Ears: hearing grossly normal bilaterally Face and sinus: face symmetric Eyes General: appearance normal, both eyes and all related structures Conjunctivae: conjunctivae normal Sclera: sclerae normal EOM: EOM intact bilaterally Neck Neck: normal visual inspection Resp Effort & Inspection: normal respiratory effort and able to speak in complete sentences Psych Appearance: grossly normal Mental Status: mental status grossly normal Speech and Movement: speech and movement normal Mood: congruent mood Affect: normal affect Attitude: cooperative Thought Process: normal Thought Content: normal Judgment: judgment good Objective Imaging CT chest/abd/pelvis: Radiologist's impression: PROCEDURE: CT CHEST ABD PEL W CON INDICATIONS: lumg mass TECHNIQUE: After the administration of intravenous contrast, 5 mm thick sections acquired from the lung apices to the symphysis. 5 mm coronal and sagittal reformats were performed, with additional 7 mm MIP reformats through the lungs. For radiation dose reduction, the following was used: automated exposure control, adjustment of mA and/or kV according to patient size. COMPARISON: [facility], [facility], XR HIP W PEL IF DONE LT 2V, 08/22/2023, 14:45. FINDINGS: Image quality: Diagnostic. CHEST: Lower Neck: No enlarged lymph nodes. Thyroid: No thyroid nodules which require sonographic follow up, per consensus guidelines. Axillae: No enlarged lymph nodes. Chest Wall: Unremarkable. Bones: Visualized osseous structures appear intact without acute fracture or focal destructive lesion. No acute compression fractures of the imaged spine. Multilevel spondylosis of the imaged thoracic spine. Lungs and Pleura: Bibasilar atelectasis. There is an irregular 1.8 x 1.9 cm pulmonary nodule in the right upper lobe (86/series 3). Faint 5 mm ground-glass nodule in the right middle lobe (185/series 3). Heart: Heart size is normal. No pericardial effusion. Thoracic Vessels: The aorta and pulmonary arteries demonstrate normal size. Mediastinum and Farhana: No enlarged lymph nodes. Esophagus: No wall thickening. Small hiatal hernia. ABDOMEN: Liver: Numerous ill-defined heterogeneously enhancing hepatic hypodense masses compatible with metastatic disease. These are seen in the bilateral hepatic lobes. Gallbladder: Gallbladder appears mildly contracted with thickened wall and pericholecystic fluid. There is mild prominence of the common bile duct. Biliary ducts: Mild central biliary ductal prominence. Findings are most pronounced in the left hepatic lobe. Pancreas: No suspicious ductal dilation. No peripancreatic inflammation. Spleen: Size is within normal limits. Adrenal Glands: There is an indeterminate left adrenal nodule measuring 2.7 cm. There appears to be post surgical clips in the right adrenal fossa. Kidneys and Ureters: No hydronephrosis. No solid mass. No complex renal cystic lesion which requires follow up. Stomach and Bowel: Extensive fecal material seen throughout the colon. Nonspecific fluid-filled small bowel. No evidence to suggest small bowel obstruction. Normal colonic caliber, without significant wall thickening. No evidence for abnormal wall thickening. No acute inflammatory changes noted. Peritoneum: No abnormal intraperitoneal fluid. No free air. Ventral Wall: No hernia. Abdominal Nodes: No retroperitoneal or mesenteric adenopathy by size criteria. Vessels: Aorta and inferior vena cava are normal in size. PELVIS: Pelvic Organs/urinary bladder: Urinary bladder is decompressed by [place] catheter which appears to be separate and anterior to a large, heterogeneously enhancing pelvic mass measuring approximately 12.6 cm in craniocaudal dimension and approximately 8.6 x 8.8 cm in axial cross-sectional dimension. A distinct uterus and ovaries is not visualized.. . Pelvic Nodes: No definite pelvic adenopathy. Miscellaneous: No inguinal hernias are seen. Bones: No acute vertebral body compression fractures. Multilevel spondylitic changes throughout the imaged spine. No suspicious osseous lesions.Non-displaced femoral IMPRESSION: 1. Large, heterogeneously enhancing pelvic mass measuring 8.6 x 8.8 x 12.6 cm possibly uterine in origin. This appears to be separate from the decompressed urinary bladder. 2. Numerous, ill-defined heterogeneously enhancing masses within the liver suspicious for metastatic disease. 3. Postsurgical changes previous right adrenal gland resection with a 2.7 cm indeterminate left adrenal nodule. 4. Decompressed gallbladder with wall thickening and pericholecystic fluid. Suggestion of central biliary ductal prominence. A primary biliary tumor not excluded. 5. Irregular 1.9 cm right upper lobe pulmonary nodule. No hilar or mediastinal adenopathy visualized. 6. Very large amount of fecal material seen throughout the entire colon likely related to constipation. 7. Redemonstration of known minimally displaced left proximal femoral neck fracture. No associated suspicious osseous lesion identified. 8. Other chronic findings as above. Labs 08/24/23 04:15 08/24/23 04:15 Labs: Laboratory Results - last 24 hr 08/22/23 08/22/23 08/23/23 15:55 16:45 07:30 WBC 9.6 RBC 4.04 Hgb 10.0 L Hct 30.6 L MCV 75.6 L MCH 24.7 L MCHC 32.7 RDW 16.8 H Plt Count 310 Neut % (Auto) 82.6 H Lymph % (Auto) 9.3 L [place] % (Auto) 6.8 Eos % (Auto) 0.8 L Baso % (Auto) 0.5 Neut # (Auto) 7900 H Lymph # (Auto) 900 L [place] # (Auto) 700 Eos # (Auto) 100 Baso # (Auto) 100 Sodium 126 L Potassium 3.9 Chloride 96 L Carbon Dioxide 27 BUN 14 Creatinine 0.50 L Estimated GFR > 60 BUN/Creatinine Ratio 28.0 H Glucose 140 H Calcium 8.0 L Carcinoembryonic Ag 316.0 H CA 125 Antigen 11.7 Ur Random Sodium 28 L 08/23/23 14:37 WBC RBC Hgb Hct MCV MCH MCHC RDW Plt Count Neut % (Auto) Lymph % (Auto) [place] % (Auto) Eos % (Auto) Baso % (Auto) Neut # (Auto) Lymph # (Auto) [place] # (Auto) Eos # (Auto) Baso # (Auto) Sodium 127 L Potassium Chloride Carbon Dioxide BUN Creatinine Estimated GFR BUN/Creatinine Ratio Glucose Calcium Carcinoembryonic Ag CA 125 Antigen Ur Random Sodium PFSH Social History household members: children lives independently: Yes caregiver/support person: Yes (FAWN Stephenson) housing: house Tobacco & Substance Use Smoking Status: Never smoker alcohol intake: never Assessment & Plan Assessment and plan (1) Pelvic mass in female: Status: Acute Plan Given the uncertainty of whether the cervix and/or ovaries remain after her hysterectomy, I will assume that both the cervix and ovaries are present. The cervix could certainly be a source of both benign and malignant masses. A simple, benign cervical myoma could be present but a benign process does not explain the appearance of both local infiltration and/or probable distant metastases in the liver and possibly the lungs as seen on CT. Malignant cervical masses could include squamous cell carcinoma, endocervical adenocarcinoma, or sarcoma/adeno-sarcoma. Each of these could produce a solid central pelvic mass but both the infiltration pattern and pattern of distant metastases are inconsistent with any of these diagnoses. Squamous cell carcinoma and endocervical adenocarcinoma would be expected to spread to the lymph nodes and involve the ureters prior to development of distant metastases. In this instance however it does not appear the ureters are compromised. A cervical sarcoma would be expected to metastasize aggressively to the lungs rather than the liver. While possible, I do not believe this mass to be cervical in origin. Assuming the ovaries remain in place, a solid central pelvic mass of ovarian origin is possible. Epithelial tumors, germ cell tumors, sex cord stromal tumors, or metastatic tumors (primarily GI) are all possibilities. Again however, the infiltration pattern and metastatic pattern would be atypical for an ovarian malignancy. A normal CA125 would be unusual for an epithelial tumor. The absence of malignant ascites in the face of probable liver metastases from an ovarian malignancy would be highly atypical. In addition, the infiltrative pattern into the paravaginal and pararectal spaces would also be unusual for an ovarian malignancy. While possible, I do not believe this mass to be ovarian in origin. It is my understanding the patient is scheduled to have colonoscopy performed 08/25/2023 and I discussed attending the surgery with Gabbie in order to perform an examination under anesthesia with possible biopsies at the time of her colonoscopy. I will coordinate those arrangements with the operating surgeon. Assessment & Plan narrative: Pelvic mass in female with probable metastatic disease to the liver and possibly the lungs. Time Spent With Patient Time with patient: less than 30 minutes
--- NOTE | 2023-08-23 17:37 | SUR.OPER ---
Supine on padded [place] table with bilateral legs secured in padded positioning boots and suspended in positioning spars, patient hospital socks left on with the toes of socks cut off for circulation checks, operative foot wrapped in coban on top of sock,operative leg in traction per surgeon. Head on one pillow. right arm secured on padded armboard <90 degrees abduction. Arm on operative side padded and resting across chest then secured with tape over sheet. Padded perineal post in place per surgeon.
[2023-08-23] MEDS: ROPIVACAINE/EPI/CLONIDINE/KET 50 ML SYRINGE INJ (18:04)
[2023-08-23] MEDS: EPINEPHrine 1 MG/ML IRR (18:05)
--- NOTE | 2023-08-23 19:00 | DI.RAD.S_ITS ---
PROCEDURE: XR HIP W PEL IF DONE LT 2V INDICATIONS: ANTERIOR LEFT HIP FX REPAIR TECHNIQUE: 2 intraoperative fluoroscopic views of the hip were acquired. COMPARISON: [facility], , XR HIP W PEL IF DONE LT 2V, 08/22/2023, 14:45. FINDINGS: Fluoroscopic images of the left hip demonstrate interval left total hip arthroplasty in normal alignment. No gross hardware complication seen. IMPRESSION: Intraoperative fluoroscopic images of the left hip demonstrating interval left total hip arthroplasty in normal alignment. No gross hardware complication visualized. Dictated by: Melchor Major M.D. on 08/24/2023 at 9:48 Approved by: Melchor Major M.D. on 08/24/2023 at 9:49
--- NOTE | 2023-08-23 19:49 | P.OP_ITS ---
Operative Date/Time/Diagnoses Date of procedure: 08/23/23 Pre-op diagnosis: Displaced left femoral neck fracture Post-op diagnosis: same Procedure & Clinicians Procedure: Left hip hemiarthroplasty for femoral neck fracture Same procedure as scheduled: Yes Surgeon: Gilson Browning Click Yes if Unassisted: Yes Anesthesia Type: General and Local Operative Notes Procedure in detail: Implants: Depuy Cemented Hemiarthroplasty: * Size 1 high offset C stem Cemented Femoral Stem * Size 48 mm -3 Unipolar Femoral Head Procedure in Detail: This patient sustained a femoral neck fracture in a ground level fall. During her evaluation she was noted to have hit her head so a CT scan of her C-spine was obtained. This found a mass in her lung. Because of this an additional CT scan was obtained of her chest abdomen and pelvis which demonstrated multifocal lesions consistent with metastatic disease. The patient was counseled regarding the implications of this and general surgery has been consulted to assist with obtaining a biopsy. The plan to do this in the future. Her initial presentation was due to hip pain and she was diagnosed with a displaced femoral neck fracture. I was consulted for management. Risks and benefits of operative versus nonoperative management were discussed at length and the patient wished to proceed with operative management. ?The patient was met in the preoperative holding area. ?All questions were answered. ?The operative site was marked. ?Informed consent was signed. ?The patient was brought back to the operating room and anesthesia was induced. ?A time-out procedure was performed. ?The patient was brought back to the operating room and placed supine on the [place] table. All bony prominences were padded. She was prepped and draped in the usual sterile fashion. No physician assistant signal maintainer was available for the procedure so I used the [employer] gripper system for soft tissue retraction. A time-out procedure was performed following our usual inpatient protocol. She was prepped and draped in the usual sterile fashion. X-rays were displayed during the procedure demonstrating the fracture pattern on the injured hip. I began by making a direct anterior approach to the hip. The TFL and rectus muscles were split and I dissected through the floor of the TFL. The lateral circumflex vessels were identified and coagulated. Cobra retractors were placed superior and inferior to the femoral neck. I released the indirect head of rectus femoris. I made a longitudinal capsulotomy. I placed tag stitches in the capsule. I placed a soft tissue retractor over the tag stitches which remained in place for the remainder of the procedure. I replaced the Cobra retractors intracapsularly. The femoral neck was re-cut with a freshening cut below the site of the femoral neck fracture. The head was removed and measured to determine the appropriate head size for final implants. Additionally I sent the femoral head for pathological analysis given the patient's tumor burden. The femoral head did not appear grossly abnormal however given her widely metastatic disease is possible that it may contain some tissue which is helpful for determination of her diagnosis. I placed a retractor over the greater trochante r and released the capsule in 90? of external rotation. I placed a [place] hook and hyperextended and adducted the leg with traction off. I externally rotated to approximately 130? and performed a release of the conjoined tendon. I elevated the femur. I broached up to a size 1 cemented stem and calcar planed. I noted that her marrow was somewhat abnormal, containing more fat than is typical for femoral bone marrow. I therefore also sent some of this bone marrow for pathological analysis. I placed trial components and removed all retractors and reduced the hip. I found that with a standard neck and a-3 head the leg length was appropriate but the offset was diminished. I therefore planned to transitioned to a high offset stem with the same head size. I returned to the broaching position replaced retractors and elevated the femur. I then prepared for cementation. Prior to cementation I irrigated the canal, placed a cement restrictor, irrigated the canal again, placed epinephrine-soaked vaginal packing with a whistle-tip catheter, and removed the whistle-tip catheter after insertion of cement. I placed a size 1 high offset C stem to the same point at which I had calcar planed with the initial trials. Cement was allowed to dry and a -3 unipolar hemiarthroplasty head was impacted into place on a clean dry trunnion. All retractors were removed and the hip was reduced. Fluoroscopic images were obtained demonstrating appropriate leg length and offset on an AP pelvis image as well as appropriate positioning of the stem on an AP hip image. The hip was stable with maximum external rotation to 90? as well as a 45 degree drop test. The wound was soaked with dilute Betadine and peroxide. The hip was closed using a combination of Vicryl Stratafix and Monocryl sutures. A dilute mixture of ropivacaine epinephrine clonidine and Toradol was infiltrated throughout the wound after closure of the TFL fascia. Dermabond was applied. A yanni dressing was applied. The patient was transferred off of the operating room table and brought to the PACU where she awoke without complication. She was noted to have intact dorsiflexion and plantar flexion of her hallux and ankle as well as a palpable DP pulse. Postoperative images were obtained which corresponded with the intraoperative fluoroscopy. ? Plan for aftercare: * Patient will remain inpatient while we continue working to determine a diagnosis of her presumed metastatic disease * Transfer to floor following recovery in PACU * Weightbearing as tolerated * Mobilize in the halls with assistance of physical therapy * Aspirin 81 twice per day for DVT prophylaxis unless the primary team feels more aggressive anticoagulation is necessary given her presumed oncologic diagnosis * Multimodal pain regimen with no IV opioids ordered * Anticipate discharge home as I anticipate the patient will be able to mobilize given her good preoperative function * Follow up at [facility] in 2 weeks
[2023-08-23] MEDS: ACETAMINOPHEN 325 MG TABLET 650 MG PO (20:45)
[2023-08-23] MEDS: ASPIRIN EC 81 MG TABLET PO (20:45)
[2023-08-23] MEDS: DOCUSATE 100 MG CAPSULE PO (20:45)
[2023-08-23] MEDS: LACTATED RINGERS 1,000 ML 100 ML IV (20:46)
[2023-08-24] MEDS: ACETAMINOPHEN 325 MG TABLET 650 MG PO ×4 (02:08→20:06)
[2023-08-24] MEDS: CEFAZOLIN 2 GM/100 ML PREMIX 100 ML IV ×2 (02:08→10:15)
[2023-08-24 05:00] LABS: Hematocrit 27.8 % (36-46); Hemoglobin 9.2 g/dL (12.0-16.0)
--- NOTE | 2023-08-24 06:35 | PC.NURSE ---
1999--rec'd pt from PACU awake and alert; [id number] at bedside; pt denies c/o pain; bandaid to left forehead intact; left hip dressing and left knee dressing both clean dry and intact; strong pedal pulses bilaterally and pt denies numbness or tingling; SCDs on and ice pack to left hip
--- NOTE | 2023-08-24 06:38 | PC.NURSE ---
0430--pt c/o mild heartburn; rose sharmila given and pt assisted up to chair; 1 person asst w/FWW; steady on feet, good posture, denies c/o pain; pt w/ small amt watery incontinent stool; linens changed; call light in reach; d-i-l remains at bedside
--- NOTE | 2023-08-24 06:41 | PC.NURSE ---
pt remains up in chair, eating yogurt and drinking coffee; she denies c/o pain and wishes to remain in chair; ice pack to left hip refilled
[2023-08-24 08:00] VITALS: BP 95/59; PULSE 60; RESP 16; TEMP 36.2; O2SAT 100
[2023-08-24] MEDS: DOCUSATE 100 MG CAPSULE PO ×2 (08:32→20:06)
[2023-08-24] MEDS: polyethylene glycoL 3350 17 GM POWD.PACK PO (08:32)
[2023-08-24] MEDS: ASPIRIN EC 81 MG TABLET PO (08:32)
[2023-08-24] MEDS: SENNOSIDES 8.6 MG TABLET PO (08:33)
--- NOTE | 2023-08-24 08:41 | DI.US.S_ITS ---
PROCEDURE: US ABDOMEN LIMITED INDICATIONS: liver mets TECHNIQUE: Real-time scanning was performed of the abdominal and retroperitoneal organs, with image documentation. COMPARISON: [facility], CT, CT CHEST ABD PEL W CON, 08/22/2023, 17:57. FINDINGS: Liver: Liver demonstrates increased echogenicity. Multiple isoechoic/hyperechoic liver masses, the largest of which has ill-defined margins measuring approximately 6 x 7.6 x 3.7 cm. Patent main portal vein with hepatopetal flow. Gallbladder: Limited evaluation due to non fasted state with normal wall thickness measuring 2 mm. Negative sonographic Stephens's sign. Biliary ducts: Intrahepatic bile ducts are non-dilated. Extrahepatic bile duct caliber is enlarged measuring up to 10 mm. Normal is 6-7 mm or less in diameter, or 10 mm or less post-cholecystectomy. No choledocholithiasis. Pancreas: Not well seen secondary to bowel gas. IMPRESSION: 1. Multiple enlarged liver metastases, the largest of which measures approximately 6 x 7.6 x 3.7 cm, better characterized on CT dated August 22, 2023. 2. Evaluation of gallbladder is limited due to non fasted state with no evidence of cholecystitis. Probable gallstone in the fundus on recent CT. CBD is dilated measuring 10 mm. No intrahepatic biliary ductal dilatation or choledocholithiasis. 3. Liver parenchyma is echogenic which may be seen in the setting of parenchymal disease, such as steatosis. Dictated by: Yefri Cheng M.D. on 08/24/2023 at 9:59 Approved by: Yefri Cheng M.D. on 08/24/2023 at 10:08
[2023-08-24 08:42] LABS: Magnesium 1.8 mg/dL (1.6-2.3)
[2023-08-24 08:43] LABS: BUN Creatinine Ratio 23.1 (6-22); Blood Urea Nitrogen 12 mg/dL (7-17); Calcium 8.2 mg/dL (8.4-10.2); Carbon Dioxide 28 mmol/L (22-32); Chloride 94 mmol/L (98-107); Estimated Glomerular Filt Rate > 60 mL/min (>60); Glucose 129 mg/dL (80-110); HEMOLYSIS < 15 (0-50); Sodium 127 mmol/L (137-145)
--- NOTE | 2023-08-24 08:44 | PM.PNPO.1 ---
Subjective Subjective Date Patient Seen: 08/24/23 Time Patient Seen: 08:44 Interval history: Patient denies pain. No fever or chills. No nausea or vomiting. Exam Vital Signs (past 8 hours): - 08/24/23 07:00 08/24/23 08:00 Temperature 97.1 F L Pulse Rate 60 Respiratory Rate 16 Blood Pressure 95/59 L Pulse Oximetry 100 Oxygen Delivery Method Room Air Oxygen Flow Rate 0 Oxygen Delivery Method Room Air Oxygen Flow Rate 0 Narrative Exam Narrative: 77-year-old female resting comfortably in bedside chair in no apparent distress. Patient just finishing breakfast. Left hip dressing is Clean, dry, intact.. Calf is soft and nontender. Motor functions intact bilateral lower extremities. Sensation grossly intact to light touch bilateral lower extremities. Const General: cooperative and comfortable Nutritional Appearance: average body habitus Orientation: alert Resp Effort & Inspection: normal respiratory effort and able to speak in complete sentences Objective Labs 08/24/23 04:15 08/24/23 04:15 Labs: Laboratory Results - last 24 hr 08/23/23 08/24/23 14:37 04:15 Hgb 9.2 L Hct 27.8 L Sodium 127 L 127 L Potassium 4.0 Chloride 94 L Carbon Dioxide 28 BUN 12 Creatinine 0.52 Estimated GFR > 60 BUN/Creatinine Ratio 23.1 H Glucose 129 H Calcium 8.2 L Magnesium 1.8 PFSH Social History household members: children Smoking Status: Never smoker alcohol intake: never Assessment & Plan Post-op Postoperative Procedures: Procedures Operation Date: 08/23/23 15:00 Actual Procedure Side Surgeon p Left Hip Hemiarthroplasty-anterior approach Left Gilson Browning MD Postoperative day: 1 Postoperative status: doing well Postoperative plan narrative: Mobilize with physical therapy, weight-bearing as tolerated Aspirin 81 mg b.i.d. for DVT prophylaxis in the primary team feels she would require more aggressive anticoagulation given her presumed oncologic diagnosis Multimodal pain management, no IV opioids ordered Follow up outpatient [facility] in 2 weeks Patient will remain in hospital while we continue working to determine the diagnosis of her presumed metastatic disease Disposition, anticipate discharge home 1-2 days
[2023-08-24 09:49] LABS: Sodium Urine Random 6 mmol/L (30-90)
[2023-08-24] MEDS: SODIUM CHLORIDE 0.9% 1,000 ML 125 ML IV ×2 (10:16→19:33)
--- NOTE | 2023-08-24 11:18 | OT.IP.EVAL ---
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) Anemia, unspecified (08/22/23) Hypo-osmolality and hyponatremia (08/22/23) Full incontinence of feces (08/22/23) Intra-abdominal and pelvic swelling, mass and lump, unspecified site (08/22/23) Fracture of unspecified part of neck of left femur, initial encounter for closed fracture (08/22/23) Surgery Performed Operation Date: 08/23/23 15:00 Actual Procedures p Left Hip Hemiarthroplasty-anterior approach(Left) - Gilson Browning MD Occupational Therapy Inpatient Evaluation/Re-Eval M1 PT/OT-IP Prior Functional Status Start: 08/24/23 12:16 Freq: NEEDED Status: Active Protocol: Document 08/24/23 12:16 [facility] (Rec: 08/24/23 12:35 [facility] [id number]) Medical Review Prior Functional Status Medical History Reviewed Yes Communication Unsure baseline diet. Pt appears to have some cognitive and/or hearing challenges on PT eval Mobility and Gait I Activities of Daily Living and IADL's I Prior Functional Level (Other details) Pt lives in a cottage next to her daughter's home on [address]. They have generators. She does not drive. There are 10 people on the [place] in the winter, she states. Social History Household Members children Living Arrangements House Number of Floors (Floors) One Floor Number of Stairs To Enter/Railing? Pt reports there is a deck and there are 5 steps down with one rail on the left. It is unclear if she has to do the steps or not. Per pt's daughter states will only have to do one step to get into the house at this time. There is uneven terrain that a FWW or wc will not be able to accommodate. Pt's daughter states her and her have done [employer] of both side and able to get her into the house. 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 (Rec: 08/24/23 12:35 [facility] [id number]) Occupational Therapy Current Condition Current Condition Evaluation Date 08/24/23 Treatment Diagnosis Fall s/p fall L JAIDA, Liver mets Diagnosis Onset Date 08/22/23 Post Operative Precautions Anterior Hip Precautions No Hip Extension,No Hip External Rotation M3 OT- IP Subjective and Pain Start: 08/24/23 12:16 Freq: Status: Active Protocol: Document 08/24/23 12:16 [facility] (Rec: 08/24/23 12:35 [facility] [id number]) OT- Subjective Occupational Therapy Visit Type Type Initial Evaluation Visit Start Time 10:35 Visit Stop Time 11:18 Total Visit Minutes 33 Occupational Therapy Visit Comments Patient Comments Pt agreed to get up and use the bathroom. Patient/Caregiver Goals Pt's daughter wanting her to go home. OT Pain Assessment Pain When Pain Assessed At Rest Pain Present Pain Present Denied Pain M4 OT- IP ADL's Start: 08/24/23 12:16 Freq: Status: Active Protocol: Document 08/24/23 12:16 [facility] (Rec: 08/24/23 12:35 [facility] [id number]) OT WOA-Xads-Jizxmpt Comments OT Self-Feeding Comments Not at meal time, no issues anticipated. OT ADL-Grooming General Evaluation Grooming Ability Standby Assistance Areas Needing Assistance Retrieving/Set-up of Grooming Items Comments OT Grooming Comments Able to stand with FWW at the sink for needs. OT ADL-Oral Care General Eval Oral Care Ability Independent OT ADL-Dressing General Eval Lower Body Dressing Ability Moderate Assistance Areas Needing Assistance Underpants/Brief,Socks OT ADL-Toileting General Evaluation Toileting Ability Moderate Assistance Areas Needing Assistance Manage Clothing Comments OT Toileting Comments Pt needing assist to help fasten the brief while standing. OT ADL-Bathing Comments OT Bathing Comments Not performed. M5 OT- IP IADL's Start: 08/24/23 12:16 Freq: Status: Active Protocol: Document 08/24/23 12:16 [facility] (Rec: 08/24/23 12:35 [facility] [id number]) OT-Instrumental Activities of Daily Living Deficits IADL Deficits Identified Deficits Home Safety Awareness Home Safety Comments Pt has a supportive daughter that assist with all IADl needs and states at time pt has senior moments and does not think well at times. Medication Management Medication Management Comments Pt does not take any medications. Money Management Money Management Caregiver Provides Assistance Meal Preparation Meal Preparation Caregiver Provides Assist M6 OT- IP Functional Cognition Start: 12/28/23 12:16 Freq: Status: Active Protocol: Document 08/24/23 12:16 [facility] (Rec: 08/24/23 12:35 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 Pt not aware of the day of week, not able to subtract 100-23, not able to recall any of the 5 objects after time passed, and not able to draw the hour hands on the clock correctly after time given. Cognitive Comments Cognitive Assessment Comments Pt able to follow commands for ADL and mobility needs. Pt needing vc for FWW safety and for her anterior hip precautions. OT- Vision and Hearing OT- Vision Assessment Occular Pursuits WFL Vision Assessment Comments Pt able to read the clock, to assess more. M7 OT- IP Mobility and Balance Start: 08/24/23 12:16 Freq: Status: Active Protocol: Document 08/24/23 12:16 [facility] (Rec: 08/24/23 12:35 [facility] [id number]) OT- Bed Mobility Assessment Supine to Sit Supine to Sit Assist Contact Guard Assistance OT-Transfer Assessment Sit to and From Stand Sit to and from Stand Minimal Assistance Transfers Transfer Ability Minimal Assistance Technique Transfer Destination Bed,Chair,Toilet Transfer Technique Stand Step Pivot Devices Transfer Assistive Devices Gait Belt,Front Wheeled Walker Comments Mobility Comments CGA to get to the edge of the bed. TRACY with FWW to get to the bathroom. OT- Balance Assessment Sitting Balance and Reactions Static Sitting Balance Ability Good Dynamic Sitting Balance Ability Good Standing Balance and Reactions Static Standing Balance Ability Fair Dynamic Standing Balance Ability Fair M8 OT- IP Objective Assessments Start: 08/24/23 12:16 Freq: Status: Active Protocol: Document 08/24/23 12:16 [facility] (Rec: 08/24/23 12:35 [facility] [id number]) OT Gross Range of Motion Upper Extremity Range of Motion Assessment Within Functional Limits OT Strength Upper Extremity Strength Assessment Within Functional Limits M9 OT- IP Assessment and Plan Start: 08/24/23 12:16 Freq: Status: Active Protocol: Document 08/24/23 12:16 [facility] (Rec: 08/24/23 12:35 [facility] [id number]) OT Summary Assessment and Plan Potential Rehabilitation Potential Fair Analytic Complexity at Evaluation High Summary OT Impairments Strength,Balance,Functional Cognition,Functional Mobility, Grooming,Dressing,Toileting, Bathing,Toilet Transfers, Shower Transfers Progress Towards Goals Progressing Toward Goals,Slow Progress due to Medical Issues Assessment Summary Pt high complexity and newly diagnosed METs and recent fall s/p L JAIDA. Pt overall doing well and needing one person assist for ADL and mobility needs. Pt needing vc for fww safeyy and reminders to follow her anterior precautions. Pt's daughter wanting to have pt to go home if able and pending prognosis. At this time pt would benefit from skilled rehab versus home with 20/03 available assist. Goals Dressing Goal Standby Assistance Toileting Goal Standby Assistance Bathing Goal Standby Assistance Toilet Transfer Goal Independent Shower Transfer Goal Standby Assistance Days to Meet Goals 10 Frequency of Treatment Frequency Of Treatment Once a Day Treatment Plan OT Treatment Plan ADL Training,Functional Cognition Training,Functional Mobility,Patient/Family Education,Discharge Planning Other Treatment Recommendations and Next Pt to be able to shower with Treatment Focus TRACY and use of shower chair. Discharge Recommendations OT Discharge Recommendations Home vs SNF Home Equipment Needs shower chair, FWW Transportation Needs at Discharge Private Vehicle,Wheelchair/ Cabulance
--- NOTE | 2023-08-24 11:18 | PT.IIE ---
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) Anemia, unspecified (08/22/23) Hypo-osmolality and hyponatremia (08/22/23) Full incontinence of feces (08/22/23) Intra-abdominal and pelvic swelling, mass and lump, unspecified site (08/22/23) Fracture of unspecified part of neck of left femur, initial encounter for closed fracture (08/22/23) Surgery Performed Operation Date: 08/23/23 15:00 Actual Procedures p Left Hip Hemiarthroplasty-anterior approach(Left) - Gilson Browning MD Physical Therapy Inpatient Evaluation/Re-Eval M1 PT/OT-IP Prior Functional Status Start: 08/24/23 08:36 Freq: NEEDED Status: Active Protocol: Document 08/24/23 10:36 MB (Rec: 08/24/23 11:18 MB [id number]) Medical Review Prior Functional Status Medical History Reviewed Yes Communication Unsure baseline diet. Pt appears to have some cognitive and/or hearing challenges on PT eval Mobility and Gait I Activities of Daily Living and IADL's I Prior Functional Level (Other details) Pt lives in a cottage next to her daughter's home on [facility] [facility] [address]. They have generators. She does not drive. There are 10 people [place] the [place] in the winter, she states. Social History Household Members children Living Arrangements House Number of Floors (Floors) One Floor Number of Stairs To Enter/Railing? Pt reports there is a deck and there are 5 steps down with one rail on the left. It is unclear if she has to do the steps or not. 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 PT-IP Current Condition Start: 08/24/23 08:36 Freq: NEEDED Status: Active Protocol: Document 08/24/23 10:36 MB (Rec: 08/24/23 11:18 MB [id number]) Physical Therapy Current Condition Current Condition Evaluation Date 08/24/23 Treatment Diagnosis Fall, left hip fracture, newly found metastatic CA pelvis, liver, lung M3 PT-IP Subjective Start: 08/24/23 08:36 Freq: NEEDED Status: Active Protocol: Document 08/24/23 10:36 MB (Rec: 08/24/23 11:18 MB [id number]) Subjective Physical Therapy Visit Type Type Initial Evaluation Visit Start Time 10:36 Visit Stop Time 10:50 Total Visit Minutes 14 Number of GROUP CONTROLLER Visits 0 Physical Therapy Visit Comments Patient Comments Pt reports having BM when getting up and she is wearing a brief. Therapy Pain Assessment Pain When Pain Assessed During Mobility Pain Present Pain Present Pain Reported Location left hip Intensity 4 Scale Used Torres-Kunz (Faces) Description Acute Pain Behaviors Guarding Pain Management Techniques Distraction,Modification of Treatment,Re-positioning M4 PT-IP Mobility and Gait Start: 08/24/23 08:36 Freq: NEEDED Status: Active Protocol: Document 08/24/23 10:36 MB (Rec: 08/24/23 11:18 MB [id number]) PT-Bed Mobility Assessment Supine to Sit Supine to Sit Minimal Assistance,1 Person Assistance,Bedrails Scooting Scooting to Edge of Bed Minimal Assistance PT-Transfer Assessment Sit to and From Stand Sit to and from Stand Minimal Assistance,1 Person Assistance,Use of Upper Extremities Equipment Transfer Assistive Device Gait Belt,Front Wheeled Walker Orthotic/Prosthetic Devices or Brace: No Transfers Transfer Destination Toilet Transfer Technique Ambulation Transfer Ability Level of Assist Minimal Assistance Comments Mobility Comments Cues for hand placement and safety. Pt tends to run into chair and door on the right with walker Gait Assessment Gait Gait Assistance Required: Minimum Assistance,1 Person Assist Distance (Feet) 15 Able to Maintain Weight Bearing Status Yes During Gait Assistive Devices Assistive Device Gait Belt,Front Wheeled Walker Orthotic/Prosthetic Devices or Brace: No Gait Deviations General Gait Pattern Antalgic,Decreased Stride Length Factors Limiting Gait Function Factors Limiting Gait Function Decreased Activity Tolerance, Decreased Strength,Difficulty Following Directions, Incoordination,Pain,Poor Balance,Poor Safety Awareness Comments Gait Comments RLE appears functional and left LE with edema, weakness and pain s/p fracture and surgery. Pt has poor safety awareness with the walker and runs into chair and door on the right. She has trouble following commands for turning and for the getting to the commode. It appears that pt is having a cognitive challenge vs ALGAACIQ. She does not answer all PLOF questions comprehensively and does not offer information. Pt with ongoing bowel incontinence with mobility, wearing brief. PT-Balance Assessment Sitting Balance and Reactions Static Sitting Balance Ability Fair Dynamic Sitting Balance Ability Fair Standing Balance and Reactions Static Standing Balance Ability Poor Dynamic Standing Balance Ability Poor Device Used RW M5 PT-IP Objective Assessments Start: 08/24/23 08:36 Freq: NEEDED Status: Active Protocol: Document 08/24/23 10:36 MB (Rec: 08/24/23 11:18 MB [id number]) Orientation Orientation/Cognition Level of Alertness Confusional State Language Function Ability No Deficits Noted Safety Awareness Decreased Safety Awareness Comments Pt does not answer all questions well with PT and has cognitive challenges with functional command following. OT to perform further cognitive screening. Gross Range of Motion Upper Extremity ROM Impairments Defer to OT Lower Extremity ROM Assessment Left Impaired Strength Comments Strength Comments No MMT post-op and LLE is functionally weak all joints with mobility Sensation Assessment Sensation Gross Sensation WNL M6 PT-IP Treatment Start: 08/24/23 08:36 Freq: NEEDED Status: Active Protocol: Document 08/24/23 10:36 MB (Rec: 08/24/23 11:18 MB [id number]) Physical Therapy Treatment Education Education Provided Precautions,Weight Bearing Status,Post-Op Packet,Safety M7 PT-IP Assessment and Plan Start: 08/24/23 08:36 Freq: NEEDED Status: Active Protocol: Document 08/24/23 10:36 MB (Rec: 08/24/23 11:18 MB [id number]) PT Summary Assessment and Plan Potential Rehabilitation Potential Fair Status of Condition at Evaluation Unstable Summary Impairments Pain,ROM,Strength,Balance, Cognition,Bed Mobility, Transfers,Gait,Activity Tolerance Progress Towards Goals Slow Progress due to Pain,Slow Progress due to Medical Issues,Slow Progress due to Activity Tolerance Assessment Summary Pt is a 77 y/o female who states that she passed out in her cottage on [address] [facility] and that is how she broke her left hip. She does not know what she was doing at the time . Pt underwent left hip hemiarthroplasty and is WBAT with anterior hip precautions. Pt had had some vaginal bleeding and stool retention GROUP CONTROLLER as well and she has newly found pelvic, lung and liver masses and is being worked up for new CA diagnosis. Pt has some trouble answering questions clearly and following functional commands with PT assessment. She runs into chair and BR door on the right during assessment. Differential includes vision, hearing and cognitive challenges. OT to perform further cognitive screen. Recommend SNF placement at d/c . Her functional prognosis is guarded to fair to poor given multiple medical conditions. Pt with constant diarrhea with mobility. Will inititiate PT frequency at once per day given many medical conditions. Unsure what the terrain is like at home if she d/cs there . Goals Bed Mobility Goal Independent Transfer Goal Standby Assistance,Front Wheeled Walker Gait Goal Standby Assistance,Front Wheel Walker Gait Distance 75 Other Goals Pt will ascend and descend 5 steps with rail and no more than SBA to allow safe home entrance. Advance to LRAD to tolerance Frequency of Treatment Frequency Of Treatment Once a Day Treatment Plan Physical Therapy Treatment Plan Bed Mobility Training,Transfer Training,Gait Training, Therapeutic Exercise,Balance Retraining,Discharge Planning Precautions Anterior Hip Precautions No Hip Extension,No Hip External Rotation Weight Bearing Status Weight Bearing Status Weight Bear as Tolerated Recommendations To Nursing Amount of Assist Needed 1 Person Assist Discharge Recommendations PT Discharge Recommendations Home vs SNF Transportation Needs at Discharge Private Vehicle
[2023-08-24 12:33] LABS: INR 1.2 (0.9-1.3)
[2023-08-24 12:35] LABS: PTT Partial Thromboplastin Tim 24 SECONDS (25.1-36.5)
--- NOTE | 2023-08-24 13:03 | PM.PN.1 ---
Subjective Subjective Interval history: Patient doing well today. DIL at bedside. Liver biopsy arranged for tomorrow at 0930 with IR. Spoke with Dr. Palafox at [facility] who will see patient via televisit for 1st appointment in 1 week to discuss biopsy results. Had Urvashi Corrales PCP fax urgent referral to [facility]. Exam Vital Signs (past 8 hours): - 08/24/23 07:00 08/24/23 08:00 Temperature 97.1 F L Pulse Rate 60 Respiratory Rate 16 Blood Pressure 95/59 L Pulse Oximetry 100 Oxygen Delivery Method Room Air Oxygen Flow Rate 0 Oxygen Delivery Method Room Air Oxygen Flow Rate 0 Narrative Exam Narrative: Gen: no acute distress in hospital bed Abd: soft, non-tender, non-distended, some firmness in lower abdomen no discrete palpable mass CV: RRR no m/r/g Pulm: CTA b/l with poor inspiratory efford Ext: no edema or joint effusion, L post-op hip dressing in place Neuro: awake, alert, no focal deficits. Objective Labs 08/24/23 04:15 08/24/23 04:15 Labs: Laboratory Results - last 24 hr 08/23/23 08/24/23 08/24/23 14:37 04:15 09:15 Hgb 9.2 L Hct 27.8 L Sodium 127 L 127 L Potassium 4.0 Chloride 94 L Carbon Dioxide 28 BUN 12 Creatinine 0.52 Estimated GFR > 60 BUN/Creatinine Ratio 23.1 H Glucose 129 H Calcium 8.2 L Magnesium 1.8 Ur Random Sodium 6 L PFSH Social History household members: children lives independently: Yes caregiver/support person: Yes (FAWN Stephenson) housing: house Smoking Status: Never smoker alcohol intake: never Assessment & Plan Assessment & Plan narrative: 1. Left femoral neck fracture, pathologic, secondary to osteoporosis - no malignant involvement based on CT imaging - orthopedics consulted, performed repair on 08/23 - PT/OT after surgery. - likely home with HH 2. 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 - discussed with IR who will perform CT-guided liver biopsy on 07/29, hold aspirin for now - spoke with Dr. Palafox who will f/up with patient in 1 week to discuss biopsy results, they will meet via virtual visit [place] PCP office faxing urgent referral to [facility] 3. Hyponatremia - Na 125, unclear chronicity. Likely hypovolemic as urine sodium in 6. - continue IVF 4. Suspected chronic microcytic anemia - suspect secondary to chronic blood loss from pelvic mass as noted above. - Goal Hg >7. 5. Advanced care planning - POLST form was completed indicating full treatment. Daughter in law would like to sign durable medical power of rim technician paperwork as well. We discussed the patient's current situation, including barriers to discharge and barriers to cancer care at [facility] with her hip fracture and that it can be quite complex in this setting. Family is supportive but concerned about living in a remote location. I suggested looking into options closer to cancer treatment centers if she is able to be discharged as typically cancer treatment is done in that setting. For now her goals of care are pretty clear, she would like full treatment and wants to live as long as possible. She would even want feeding tube should she not be able to swallow. Code: full, surrogate is patient's daughter in law Seema DVT: ASA, held for liver biopsy Dispo: Likely home with HH following liver biopsy. 1-2 days.
--- NOTE | 2023-08-24 13:47 | CM.DPC ---
DCP Cont. Reviewed EMR and team rounds for status updates. Pt was up moving with PT/OT today, was able to walk with walker with 1-person assist, however has some confusion and not able to follow commands at times. Continues to have urinary and bowel incontinence, is requiring a brief and assistance with toileting. Pt will have a liver biopsy tomorrow, followed by a televisit appt. with Dr. Palafox/Oncologist, in one-week once pathology is available. ELECTRO PLATER will work with pt/family re: whether pt will need SNF vs. Home at d/c.
[2023-08-24 20:00] VITALS: BP 109/65; PULSE 71; RESP 16; TEMP 36.6; O2SAT 100
[2023-08-25] VITALS (11 sets, daily range): BP systolic 102–123; BP diastolic 51–80; PULSE 72–945; RESP 13–18; TEMP 36.3–37.2; O2SAT 95–100
--- NOTE | 2023-08-25 | PATH_ITS ---
[facility] Accession Number: [id number] No. of containers..01 Tissue . 01 Material submitted: . liver - LIVER MASS . 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 MRV 08/31/2023 1512 Local . 01 Comment: The immunophenotype is consistent with metastasis of colorectal origin. That said, correlation with clinical, endoscopic, and imaging findings are recommended to exclude the less likely possibility of enteric phenotype carcinoma of other origins (such as ovarian or lung). . As part of routine quality assurance tech, Dr. Rodrigues has reviewed the H/Es from this case and agrees with the diagnosis of metastatic adenocarcinoma. The finding of metastatic adenocarcinoma was reported to Dr. Chaparro, physician risk control specialist, by Dr. Kerns on 08/31/2023 at 1:15 p.m. . 01 Electronically signed: . Kamaljit Kerns MD, PhD, Pathologist NPI- [id number] . 01 Gross description: . The specimen is received in formalin and labeled with the patient's name, , and no additional designation, and consists of four dewitt to brown needle core biopsies ranging from 1.0 cm to 1.5 cm in length by 0.1 cm in diameter. Submitted entirely in cassette A1. ([id number]) /FRR 08/26/2023 1242 Local . 01 Microscopic: . Sections are of liver parenchyma partially effaced by a malignant neoplasm with a cribriform architecture. Luminal and geographic necrosis are present. To evaluate the site of origin, a panel of immunohistochemical stains is performed (each with an appropriately positive control). The malignant cells are strongly and diffusely positive for RAHEEM and cytokeratin 20 immunoreactivity, and are negative for cytokeratin 7 immunoreactivity, consistent with adenocarcinoma. The malignant cells are negative for PAX8, GATA3, and arginase immunoreactivity, excluding Mullerian, breast, and hepatic origin, respectively. The cells of interest are strongly and diffusely positive for SATB2 and villin immunoreactivity, consistent with metastasis of a colorectal/enteric primary. . * This test was developed and its performance characteristics [facility]. It has not been cleared or approved by the U.S. Food and Drug Administration. The FDA has determined that such clearance or approval is not necessary. This test is used for clinical purposes. It should not be regarded as investigational or for research. . 01 Pathologist provided ICD-10: C78.7 . 01 CPT . 137892, C77295, L54860 Specimen Comment: A courtesy copy of this report has been sent to [facility] Performed at: 01 [facility] [address] [place] [address], [place], [place] [id number] MD Anthony Hernandez MD Phone: [phone]
[2023-08-25] MEDS: ACETAMINOPHEN 325 MG TABLET 650 MG PO ×3 (01:26→14:18)
[2023-08-25 04:37] LABS: Add Manual Diff / Slide Review NO; Basophils Absolute Auto 0 /uL (0-100); Basophils Percent Auto 0.5 % (0-2); Eosinophils Absolute Auto 100 /uL (0-450); Eosinophils Percent Auto 0.9 % (2-4); Hematocrit 25.3 % (36-46); Hemoglobin 8.4 g/dL (12.0-16.0); Lymphocytes Absolute Auto 1000 /uL (1100-4500); Lymphocytes Percent Auto 11.4 % (25-40); Mean Corpuscular HGB Conc 33.4 % (30-36); Mean Corpuscular Volume 74.8 fL (80-100); Monocytes Absolute Auto 700 /uL (0-900); Monocytes Percent Auto 7.6 % (3-14); Neutrophils Absolute Auto 6900 /uL (1500-7000); Neutrophils Percent Auto 79.6 % (50-75); Platelet Count 283 X10^3/uL (150-400); Red Blood Cell Count 3.38 X10^6/uL (4.0-5.2); Red Cell Distribution Width 16.7 % (11.6-14.8); White Blood Cell Count 8.7 X10^3/uL (4.5-11.0)
[2023-08-25 04:47] LABS: Blood Urea Nitrogen 15 mg/dL (7-17); Calcium 7.7 mg/dL (8.4-10.2); Carbon Dioxide 24 mmol/L (22-32); Chloride 98 mmol/L (98-107); Estimated Glomerular Filt Rate > 60 mL/min (>60); Glucose 95 mg/dL (80-110); HEMOLYSIS < 15 (0-50); Potassium 4.1 mmol/L (3.4-5.1); Sodium 126 mmol/L (137-145)
--- NOTE | 2023-08-25 07:15 | P.PN_ITS ---
Subjective Subjective Date Patient Seen: 08/25/23 Time Patient Seen: 07:00 Interval history: Patient says she feels well with little pain. She is able to stand up and use the bathroom with assistance. Denies any fever, chills, nausea or vomiting. Her daughter in law is present in the room. Exam Vital Signs (past 8 hours): Oxygen Delivery Method Room Air Oxygen Flow Rate 0 Narrative Exam Narrative: 77-year-old female resting comfortably in bed on her right side in no apparent distress. Left hip dressing is Clean, dry, intact. Calf is soft and nontender. Motor functions intact bilateral lower extremities. Sensation grossly intact to light touch bilateral lower extremities. Const General: cooperative and comfortable Resp Effort & Inspection: normal respiratory effort and able to speak in complete sentences Objective Labs 08/25/23 04:08 08/25/23 04:08 Labs: Laboratory Results - last 24 hr 08/24/23 08/24/23 08/24/23 04:15 09:15 11:55 WBC RBC Hgb Hct MCV MCH MCHC RDW Plt Count Neut % (Auto) Lymph % (Auto) Hampton % (Auto) Eos % (Auto) Baso % (Auto) Neut # (Auto) Lymph # (Auto) [place] # (Auto) Eos # (Auto) Baso # (Auto) PT 14.0 H INR 1.2 APTT 24 L Sodium 127 L Potassium 4.0 Chloride 94 L Carbon Dioxide 28 BUN 12 Creatinine 0.52 Estimated GFR > 60 BUN/Creatinine Ratio 23.1 H Glucose 129 H Calcium 8.2 L Magnesium 1.8 Ur Random Sodium 6 L 08/25/23 04:08 WBC 8.7 RBC 3.38 L Hgb 8.4 L Hct 25.3 L MCV 74.8 L MCH 25.0 L MCHC 33.4 RDW 16.7 H Plt Count 283 Neut % (Auto) 79.6 H Lymph % (Auto) 11.4 L Hampton % (Auto) 7.6 Eos % (Auto) 0.9 L Baso % (Auto) 0.5 Neut # (Auto) 6900 Lymph # (Auto) 1000 L Hampton # (Auto) 700 Eos # (Auto) 100 Baso # (Auto) 0 PT INR APTT Sodium 126 L Potassium 4.1 Chloride 98 Carbon Dioxide 24 BUN 15 Creatinine 0.60 Estimated GFR > 60 BUN/Creatinine Ratio 25.0 H Glucose 95 Calcium 7.7 L Magnesium Ur Random Sodium PFSH Social History household members: children lives independently: Yes caregiver/support person: Yes (SeemaFAWN) housing: house Smoking Status: Never smoker alcohol intake: never Assessment & Plan Post-op Postoperative Procedures: Procedures Operation Date: 08/23/23 15:00 Actual Procedure Side Surgeon p Left Hip Hemiarthroplasty-anterior approach Left Gilson Browning MD Postoperative day: 2 Postoperative status: doing well Postoperative plan narrative: Answered daughter in law's questions. There is concerned about post-op PT as the patient lives on one of the [facility] that does not have PT services. Mobilize with physical therapy, weight-bearing as tolerated Aspirin 81 mg b.i.d. for DVT prophylaxis Multimodal pain management, no IV opioids ordered Follow up outpatient [facility] in 2 weeks Patient will remain in hospital to determine the diagnosis of her presumed metastatic disease. She is having a liver biopsy this morning. Disposition, anticipate discharge home 1-2 days or to a SNF. Time Spent With Patient Time with patient: less than 15 minutes
[2023-08-25] MEDS: ONDANSETRON 4 MG/2 ML INJ IV (08:03)
[2023-08-25] MEDS: SODIUM CHLORIDE 1,000 MG TABLET 1000 MG PO ×3 (08:34→16:29)
[2023-08-25] MEDS: CALCIUM CARBONATE 500 MG TAB 1000 MG PO ×2 (08:43→17:52)
--- NOTE | 2023-08-25 09:03 | P.CALLCOV_ITS ---
Call Coverage Note Note Date of Patient Contact: 08/23/23 Narrative of Care Provided: Asked to see patient for tissue diagnosis of metastatic cancer of unknown primary. With large pelvic mass and current repair of left hip fracture(the real reason she presented). Recommended speaking to LEAD BURNER HELPER as it has appearance of voice pathologist origin in my opinion and I hesitate to do bowel prep in the setting of fresh post op hip. physical sciences professor was not in agreement of the origin of the pelvic mass. Case passed on the general surgeon human resource professional for 08/24/23. IR biopsy may be route for biopsy
--- NOTE | 2023-08-25 09:03 | PM.CALLCOV.1 ---
Call Coverage Note Note Date of Patient Contact: 08/23/23 Narrative of Care Provided: Asked to see patient for tissue diagnosis of metastatic cancer of unknown primary. With large pelvic mass and current repair of left hip fracture(the real reason she presented). Recommended speaking to RUBBERIZING MECHANIC as it has appearance of automobile contract clerk origin in my opinion and I hesitate to do bowel prep in the setting of fresh post op hip. pipe cutter was not in agreement of the origin of the pelvic mass. Case passed on the general surgeon salesperson shoes for 08/24/23. IR biopsy may be route for biopsy
--- NOTE | 2023-08-25 09:30 | DI.CT.S_ITS ---
PROCEDURE: CT BIOPSY LIVER Sedation analgesia for approximately 12 minutes. INDICATIONS: liver mass, need tissue biopsy for cancer diagnosis TECHNIQUE: The indications, alternatives, benefits, risks, and possible complications of the procedure were communicated to the patient. Informed written consent from the patient was obtained and placed in the chart. Continuous EKG and hemodynamic monitoring was started by trained personnel. The patient was brought to the CT suite and hydroelectric systems technician spiral CT imaging was performed with localization grid. The appropriate site for percutaneous access to the biopsy target was marked, was prepped and draped sterilely, and was infused with local anaesthesia. Under CT guidance, a core biopsy trocar and needle set was advanced to the biopsy target, and specimen(s) were obtained. The trocar and needle were then removed, and the patient was sent for post-procedure monitoring. COMPARISON: [facility], CT, CT CHEST ABD PEL W CON, 08/22/2023, 17:57. FINDINGS: Biopsy site: Right lobe of the liver lesion measuring approximately 8.3 x 6.5 cm, (3/49). The lesion is heterogeneous with mostly peripheral enhancement and probable central necrosis. Needle: 18 gauge Temno biopsy needle with introducer trocar. Number of passes: 4 Medications: 1% lidocaine for local anaesthesia. IV Fentanyl and Versed for conscious sedation for 12 minutes (see nursing record). Complications: None. No significant bleeding. Gelfoam slurry was administered. No subcapsular hematoma. Exam was well tolerated by the patient. IMPRESSION: Successful CT-guided biopsy of right liver lesion. Dictated by: Aman Lyn M.D. on 08/25/2023 at 10:48 Approved by: Aman Lyn M.D. on 08/25/2023 at 10:52
[2023-08-25] MEDS: MIDAZOLAM 2 MG/2 ML VIAL IV (09:54)
[2023-08-25] MEDS: fentaNYL 100 MCG/2 ML INJ IV (09:54)
--- NOTE | 2023-08-25 10:14 | PC.NURSE ---
[address] per bed for liver biopsy
--- NOTE | 2023-08-25 10:41 | PM.PN.1 ---
Subjective Subjective Interval history: Patient ready for liver biopsy today. Sodium dropped to 126, started fluid restriction and salt tabs. Patient wants to have more BM's today so lactulose ordered. DIL noted patient a little confused overnight, but she is back to baseline now. Exam Vital Signs (past 8 hours): - 08/25/23 07:00 08/25/23 08:22 08/25/23 09:59 Temperature 98.2 F Pulse Rate 88 945 H Respiratory Rate 15 14 Blood Pressure 105/51 L 112/57 L Pulse Oximetry 95 96 Oxygen Delivery Method Room Air Oxygen Flow Rate 0 08/25/23 10:00 08/25/23 10:07 08/25/23 10:20 Temperature Pulse Rate 75 74 Respiratory Rate 13 14 14 Blood Pressure 109/66 110/64 116/68 Pulse Oximetry 98 99 100 Oxygen Delivery Method Oxygen Flow Rate 5 5 5 08/25/23 10:24 Temperature Pulse Rate 75 Respiratory Rate 14 Blood Pressure 115/77 Pulse Oximetry 99 Oxygen Delivery Method Oxygen Flow Rate 5 Oxygen Delivery Method Room Air Oxygen Flow Rate 5 Narrative Exam Narrative: Gen: no acute distress in hospital bed Abd: soft, non-tender, non-distended, some firmness in lower abdomen no discrete palpable mass CV: RRR no m/r/g Pulm: CTA b/l with poor inspiratory efford Ext: no edema or joint effusion, L post-op hip dressing in place Neuro: awake, alert, no focal deficits. Objective Labs 08/25/23 04:08 08/25/23 04:08 Labs: Laboratory Results - last 24 hr 08/24/23 08/25/23 11:55 04:08 WBC 8.7 RBC 3.38 L Hgb 8.4 L Hct 25.3 L MCV 74.8 L MCH 25.0 L MCHC 33.4 RDW 16.7 H Plt Count 283 Neut % (Auto) 79.6 H Lymph % (Auto) 11.4 L Mcdowell % (Auto) 7.6 Eos % (Auto) 0.9 L Baso % (Auto) 0.5 Neut # (Auto) 6900 Lymph # (Auto) 1000 L Mcdowell # (Auto) 700 Eos # (Auto) 100 Baso # (Auto) 0 PT 14.0 H INR 1.2 APTT 24 L Sodium 126 L Potassium 4.1 Chloride 98 Carbon Dioxide 24 BUN 15 Creatinine 0.60 Estimated GFR > 60 BUN/Creatinine Ratio 25.0 H Glucose 95 Calcium 7.7 L PFSH Social History household members: children lives independently: Yes caregiver/support person: Yes (FAWN Stephenson) housing: house Smoking Status: Never smoker alcohol intake: never Assessment & Plan Assessment & Plan narrative: 1. Left femoral neck fracture, pathologic, secondary to osteoporosis - no malignant involvement based on CT imaging - orthopedics consulted, performed repair on 08/23 - PT/OT after surgery. - likely home with HH 2. 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 - discussed with IR who will perform CT-guided liver biopsy on 07/29, hold aspirin for now - spoke with Dr. Palafox who will f/up with patient in 1 week to discuss biopsy results, they will meet via virtual visit [place] to [place] office faxing urgent referral to [facility] 3. Hyponatremia - Na 125, unclear chronicity. Likely hypovolemic as urine sodium in 6. - Na improved initially, then dropped again with IVF - fluid restriction and 1g salt tab TID ordered - recheck sodium at noon 4. Suspected chronic microcytic anemia - suspect secondary to chronic blood loss from pelvic mass as noted above. - Goal Hg >7. 5. Advanced care planning - POLST form was completed indicating full treatment. Daughter in law would like to sign durable medical power of estate planning attorney paperwork as well. We discussed the patient's current situation, including barriers to discharge and barriers to cancer care at [facility] with her hip fracture and that it can be quite complex in this setting. Family is supportive but concerned about living in a remote location. I suggested looking into options closer to cancer treatment centers if she is able to be discharged as typically cancer treatment is done in that setting. For now her goals of care are pretty clear, she would like full treatment and wants to live as long as possible. She would even want feeding tube should she not be able to swallow. Code: full, surrogate is patient's daughter in law Seema DVT: ASA, held for liver biopsy Dispo: Likely home with HH on 08/26.
[2023-08-25] MEDS: DOCUSATE 100 MG CAPSULE PO (11:01)
[2023-08-25] MEDS: LACTULOSE 20 GM/30 ML SOLUTION PO (11:01)
[2023-08-25] MEDS: polyethylene glycoL 3350 17 GM POWD.PACK PO ×2 (11:32→11:37)
--- NOTE | 2023-08-25 11:44 | PC.NURSE ---
[address] Awake and oriented, VSS, dressing over puncture site to ruq dry and intact, no bruising or swelling noted. Liquids offered
[2023-08-25 12:51] LABS: Sodium 128 mmol/L (137-145)
--- NOTE | 2023-08-25 14:10 | OT.IP.TRT ---
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) Anemia, unspecified (08/22/23) Hypo-osmolality and hyponatremia (08/22/23) Full incontinence of feces (08/22/23) Intra-abdominal and pelvic swelling, mass and lump, unspecified site (08/22/23) Fracture of unspecified part of neck of left femur, initial encounter for closed fracture (08/22/23) Surgery Performed Operation Date: 08/23/23 15:00 Actual Procedures p Left Hip Hemiarthroplasty-anterior approach(Left) - Gilson Browning MD Occupational Therapy Treatment Note M2 OT-IP Current Condition Start: 08/24/23 12:16 Freq: Status: Active Protocol: Document 08/24/23 12:16 [facility] (Rec: 08/24/23 12:35 [facility] [id number]) Occupational Therapy Current Condition Current Condition Evaluation Date 08/24/23 Treatment Diagnosis Fall s/p fall L JAIDA, Liver mets Diagnosis Onset Date 08/22/23 Post Operative Precautions Anterior Hip Precautions No Hip Extension,No Hip External Rotation M3 OT- IP Subjective and Pain Start: 08/24/23 12:16 Freq: Status: Active Protocol: Document 08/25/23 14:31 [facility] (Rec: 08/25/23 14:36 [facility] [id number]) OT- Subjective Occupational Therapy Visit Type Type Treatment Note Visit Start Time 14:10 Visit Stop Time 14:20 Occupational Therapy Visit Comments Patient Comments Pt's family present and still wanting to have the FWW prior to going home and able to review equipment needs. Patient/Caregiver Goals TO go home. M4 OT- IP ADL's Start: 08/24/23 12:16 Freq: Status: Active Protocol: Document 08/25/23 14:31 [facility] (Rec: 08/25/23 14:36 [facility] [id number]) OT ADL-Toileting Comments OT Toileting Comments Spoke of getting a BSC. OT ADL-Bathing Comments OT Bathing Comments Spoke of getting shower chair or tub bench pending how pt moves. Pt's daughter states to go to the senior center to fruit picker items as needed. M9 OT- IP Assessment and Plan Start: 08/24/23 12:16 Freq: Status: Active Protocol: Document 08/25/23 14:31 [facility] (Rec: 08/25/23 14:36 [facility] [id number]) OT Summary Assessment and Plan Potential Rehabilitation Potential Good Analytic Complexity at Evaluation High Summary OT Impairments Strength,Balance,Functional Cognition,Functional Mobility, Grooming,Dressing,Toileting, Bathing,Toilet Transfers, Shower Transfers Progress Towards Goals Progressing Toward Goals,Slow Progress due to Medical Issues Assessment Summary Pt wanting to obtain a FWW to use at home and also able to go through equipment needs for ADL's. Pt's family is very supportive and to be there to assist with all her needs . Goals Dressing Goal Standby Assistance Toileting Goal Standby Assistance Bathing Goal Standby Assistance Toilet Transfer Goal Independent Shower Transfer Goal Standby Assistance Days to Meet Goals 7 Frequency of Treatment Frequency Of Treatment Once a Day Treatment Plan OT Treatment Plan ADL Training,Functional Cognition Training,Functional Mobility,Patient/Family Education,Discharge Planning Discharge Recommendations OT Discharge Recommendations Home with 20/03 Assist Available Home Equipment Needs Shower chair versus tub bench, FWW, BSC Transportation Needs at Discharge Private Vehicle
--- NOTE | 2023-08-25 14:50 | CM.DPC ---
DCP Cont. Reviewed EMR and team rounds for status updates. Plan is for pt to d/c home tomorrow w/assistance from DIL. FWW was ordered for safe mobility. Pathology is pending, pt will have a telehealth ONC consult with Dr. Palafox in 1-week. Will continue to monitor for any evolving needs prior to d/c.
--- NOTE | 2023-08-25 15:04 | PT.IPTN ---
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) Anemia, unspecified (08/22/23) Hypo-osmolality and hyponatremia (08/22/23) Full incontinence of feces (08/22/23) Intra-abdominal and pelvic swelling, mass and lump, unspecified site (08/22/23) Fracture of unspecified part of neck of left femur, initial encounter for closed fracture (08/22/23) Surgery Performed Operation Date: 08/23/23 15:00 Actual Procedures p Left Hip Hemiarthroplasty-anterior approach(Left) - Gilson Browning MD Physical Therapy Treatment Note M2 PT-IP Current Condition Start: 08/24/23 08:36 Freq: NEEDED Status: Active Protocol: Document 08/24/23 10:36 MB (Rec: 08/24/23 11:18 MB [id number]) Physical Therapy Current Condition Current Condition Evaluation Date 08/24/23 Treatment Diagnosis Fall, left hip fracture, newly found metastatic CA pelvis, liver, lung M3 PT-IP Subjective Start: 08/24/23 08:36 Freq: NEEDED Status: Active Protocol: Document 08/25/23 14:00 MB (Rec: 08/25/23 15:04 MB [id number]) Subjective Physical Therapy Visit Type Type Treatment Note Visit Start Time 14:00 Visit Stop Time 14:43 Total Visit Minutes 43 Number of GUEST EXPERIENCE SPECIALIST Visits 0 Physical Therapy Visit Comments Patient Comments Pt and DILk agreeable to PT for family training. Therapy Pain Assessment Pain When Pain Assessed During Mobility Pain Present Pain Present Pain Reported Location left hip Intensity 6 Scale Used Numeric (0 - 10) Pain Management Techniques Distraction,Modification of Treatment,Re-positioning M4 PT-IP Mobility and Gait Start: 08/24/23 08:36 Freq: NEEDED Status: Active Protocol: Document 08/25/23 14:00 MB (Rec: 08/25/23 15:04 MB [id number]) PT-Bed Mobility Assessment Supine to Sit Supine to Sit Moderate Assistance,1 Person Assistance Sit to Supine Sit to Supine Minimal Assistance,1 Person Assistance Scooting Scooting to Edge of Bed Contact Guard Assistance PT-Transfer Assessment Sit to and From Stand Sit to and from Stand Contact Guard Assistance,1 Person Assistance,Use of Upper Extremities Equipment Transfer Assistive Device Gait Belt,Front Wheeled Walker Orthotic/Prosthetic Devices or Brace: No Transfer Ability Level of Assist Contact Guard Assistance,1 Person Assistance,Use of Upper Extremities Comments Mobility Comments Cues for hand placement for safety and pt tends to reach for walker and DIL does not always correct pt. DIL is the person assisting pt with all activities for pt for family training. PT ed pt and DIL in use of gait belt to help lift left leg into and out of bed. Gait Assessment Gait Gait Assistance Required: Contact Guard Assist,Minimum Assistance,1 Person Assist Distance (Feet) 20 Able to Maintain Weight Bearing Status Yes During Gait Assistive Devices Assistive Device Gait Belt,Front Wheeled Walker Orthotic/Prosthetic Devices or Brace: No Gait Deviations General Gait Pattern Antalgic,Decreased Stride Length Factors Limiting Gait Function Factors Limiting Gait Function Decreased Activity Tolerance, Decreased Strength,Difficulty Following Directions, Incoordination,Pain,Poor Balance,Poor Safety Awareness Comments Gait Comments Pt con't with cognitive challenges that affect command following and safety awareness. OMI works with pt for all mobility tasks today for family training and pt uses RW dropped off for her by OT. Recommend BSC and transport chair for use at home. OMI states there is one platform step to enter their home and will practice this in PT. PT-Balance Assessment Sitting Balance and Reactions Static Sitting Balance Ability Fair Dynamic Sitting Balance Ability Fair Standing Balance and Reactions Static Standing Balance Ability Fair Dynamic Standing Balance Ability Fair Device Used RW M5 PT-IP Objective Assessments Start: 08/24/23 08:36 Freq: NEEDED Status: Active Protocol: Document 08/24/23 10:36 MB (Rec: 08/24/23 11:18 MB [id number]) Orientation Orientation/Cognition Level of Alertness Confusional State Language Function Ability No Deficits Noted Safety Awareness Decreased Safety Awareness Comments Pt does not answer all questions well with PT and has cognitive challenges with functional command following. OT to perform further cognitive screening. Gross Range of Motion Upper Extremity ROM Impairments Defer to OT Lower Extremity ROM Assessment Left Impaired Strength Comments Strength Comments No MMT post-op and LLE is functionally weak all joints with mobility Sensation Assessment Sensation Gross Sensation WNL M6 PT-IP Treatment Start: 08/24/23 08:36 Freq: NEEDED Status: Active Protocol: Document 08/25/23 14:00 MB (Rec: 08/25/23 15:04 MB [id number]) Physical Therapy Treatment Education Education Provided Precautions,Weight Bearing Status,Post-Op Packet,Safety M7 PT-IP Assessment and Plan Start: 12/28/23 08:36 Freq: NEEDED Status: Active Protocol: Document 08/25/23 14:00 MB (Rec: 08/25/23 15:04 MB [id number]) PT Summary Assessment and Plan Potential Rehabilitation Potential Fair Status of Condition at Evaluation Unstable Summary Impairments Pain,ROM,Strength,Balance, Cognition,Bed Mobility, Transfers,Gait,Activity Tolerance Progress Towards Goals Slow Progress due to Pain,Slow Progress due to Medical Issues,Slow Progress due to Activity Tolerance Assessment Summary See mobility comments above. Goals Bed Mobility Goal Independent Transfer Goal Standby Assistance,Front Wheeled Walker Gait Goal Standby Assistance,Front Wheel Walker Gait Distance 75 Other Goals Pt will ascend and descend one platform step with RW and no more than SBA to allow safe home entrance. Advance to LRAD to tolerance Days to Meet Goals 5 Frequency of Treatment Frequency Of Treatment Once a Day Treatment Plan Physical Therapy Treatment Plan Bed Mobility Training,Transfer Training,Gait Training, Therapeutic Exercise,Balance Retraining,Discharge Planning Other Recommendations and Next Treatment Platform step with RW practice Focus Precautions Anterior Hip Precautions No Hip Extension,No Hip External Rotation Weight Bearing Status Weight Bearing Status Weight Bear as Tolerated Recommendations To Nursing Amount of Assist Needed 1 Person Assist Discharge Recommendations PT Discharge Recommendations Home vs SNF Other Discharge Recommendations BSC, tub bench and transport chair: educated pt and DIL in benefits of these Transportation Needs at Discharge Private Vehicle
[2023-08-25] MEDS: OXYCODONE IR 10 MG TABLET PO (15:46)
[2023-08-26] MEDS: OXYCODONE IR 10 MG TABLET PO ×2 (00:47→05:43)
[2023-08-26 04:32] LABS: Add Manual Diff / Slide Review NO; Basophils Absolute Auto 100 /uL (0-100); Basophils Percent Auto 0.7 % (0-2); Eosinophils Absolute Auto 100 /uL (0-450); Eosinophils Percent Auto 0.7 % (2-4); Hematocrit 27.1 % (36-46); Lymphocytes Absolute Auto 1100 /uL (1100-4500); Lymphocytes Percent Auto 11.7 % (25-40); Mean Corpuscular HGB Conc 33.2 % (30-36); Mean Corpuscular Hemoglobin 25.1 PG (26-34); Mean Corpuscular Volume 75.4 fL (80-100); Monocytes Absolute Auto 800 /uL (0-900); Neutrophils Absolute Auto 7600 /uL (1500-7000); Neutrophils Percent Auto 78.9 % (50-75); Platelet Count 325 X10^3/uL (150-400); Red Blood Cell Count 3.59 X10^6/uL (4.0-5.2); Red Cell Distribution Width 16.7 % (11.6-14.8); White Blood Cell Count 9.6 X10^3/uL (4.5-11.0)
[2023-08-26 04:36] LABS: BUN Creatinine Ratio 21.3 (6-22); Blood Urea Nitrogen 13 mg/dL (7-17); Carbon Dioxide 28 mmol/L (22-32); Chloride 99 mmol/L (98-107); Estimated Glomerular Filt Rate > 60 mL/min (>60); Glucose 104 mg/dL (80-110); HEMOLYSIS < 15 (0-50); Potassium 4.5 mmol/L (3.4-5.1); Sodium 129 mmol/L (137-145)
[2023-08-26 07:55] VITALS: BP 103/53; PULSE 78; RESP 17; TEMP 37; O2SAT 96
[2023-08-26] MEDS: ACETAMINOPHEN 325 MG TABLET 650 MG PO (08:17)
[2023-08-26] MEDS: SODIUM CHLORIDE 1,000 MG TABLET 1000 MG PO (08:18)
[2023-08-26] MEDS: polyethylene glycoL 3350 17 GM POWD.PACK PO (08:19)
[2023-08-26] MEDS: ASPIRIN EC 81 MG TABLET PO (08:19)
[2023-08-26] MEDS: LACTULOSE 20 GM/30 ML SOLUTION PO (08:19)
[2023-08-26] MEDS: DOCUSATE 100 MG CAPSULE PO (08:19)
--- NOTE | 2023-08-26 08:57 | PT.IPTN ---
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) Anemia, unspecified (08/22/23) Hypo-osmolality and hyponatremia (08/22/23) Full incontinence of feces (08/22/23) Intra-abdominal and pelvic swelling, mass and lump, unspecified site (08/22/23) Fracture of unspecified part of neck of left femur, initial encounter for closed fracture (08/22/23) Surgery Performed Operation Date: 08/23/23 15:00 Actual Procedures p Left Hip Hemiarthroplasty-anterior approach(Left) - Gilson Browning MD Physical Therapy Treatment Note M2 PT-IP Current Condition Start: 08/24/23 08:36 Freq: NEEDED Status: Active Protocol: Document 08/24/23 10:36 MB (Rec: 08/24/23 11:18 MB [id number]) Physical Therapy Current Condition Current Condition Evaluation Date 08/24/23 Treatment Diagnosis Fall, left hip fracture, newly found metastatic CA pelvis, liver, lung M3 PT-IP Subjective Start: 08/24/23 08:36 Freq: NEEDED Status: Active Protocol: Document 08/26/23 08:00 MB (Rec: 08/26/23 08:57 MB [id number]) Subjective Physical Therapy Visit Type Type Treatment Note Visit Start Time 08:00 Visit Stop Time 08:40 Total Visit Minutes 40 Number of COSMETIC SALES ADVISOR Visits 0 Physical Therapy Visit Comments Patient Comments Pt and DIL awake and agreeable to further family training today for the step. Therapy Pain Assessment Pain When Pain Assessed During Mobility Pain Present Pain Present Pain Reported Location left hip Intensity 2 Scale Used Torres-Kunz (Faces) M4 PT-IP Mobility and Gait Start: 08/24/23 08:36 Freq: NEEDED Status: Active Protocol: Document 08/26/23 08:00 MB (Rec: 08/26/23 08:57 MB [id number]) PT-Bed Mobility Assessment Supine to Sit Supine to Sit Moderate Assistance,1 Person Assistance Scooting Scooting to Edge of Bed Contact Guard Assistance PT-Transfer Assessment Sit to and From Stand Sit to and from Stand Contact Guard Assistance,1 Person Assistance,Use of Upper Extremities Equipment Transfer Assistive Device Gait Belt,Front Wheeled Walker Orthotic/Prosthetic Devices or Brace: No Transfers Transfer Destination Toilet Transfer Technique Ambulation Transfer Ability Level of Assist Contact Guard Assistance,1 Person Assistance,Use of Upper Extremities Comments Mobility Comments Pt con't to require cues for hand placement for transfers and DIL assisting with most transfers for family training. Nsg assistance for hygiene after toileting. Gait Assessment Gait Gait Assistance Required: Contact Guard Assist,1 Person Assist Distance (Feet) 25 Able to Maintain Weight Bearing Status Yes During Gait Assistive Devices Assistive Device Gait Belt,Front Wheeled Walker ,4 Wheeled Walker Orthotic/Prosthetic Devices or Brace: No Gait Deviations General Gait Pattern Antalgic,Decreased Stride Length Factors Limiting Gait Function Factors Limiting Gait Function Decreased Activity Tolerance, Difficulty Following Directions,Poor Balance,Poor Safety Awareness Comments Gait Comments 20'x2 with RW, 25'x1 with 4WW, 10'x2 with RW. Tried both RW and 4WW because pt will have 4WW at home for outside gait. Ed pt and DIL in locking 4WW, proper positioning for sit to stand from 4WW. Stair Climbing Assessment Evaluation Level of Assist On Stairs Contact Guard Assistance,1 Person Assistance Devices Stair Climbing Assistive Devices Front Wheel Walker Technique/Endurance Stair Climbing Direction Ascend and Descend Stair Climbing Technique Step to Step Number of Steps Climbed 1 Stair Climbing Set # Repetitions (reps) 1 Comments Stair Climbing Comments Practiced platform stepping with pt and DIL and they demonstrate understanding PT-Balance Assessment Sitting Balance and Reactions Static Sitting Balance Ability Fair Dynamic Sitting Balance Ability Fair Standing Balance and Reactions Static Standing Balance Ability Fair Dynamic Standing Balance Ability Fair Device Used RW M5 PT-IP Objective Assessments Start: 08/24/23 08:36 Freq: NEEDED Status: Active Protocol: Document 08/24/23 10:36 MB (Rec: 08/24/23 11:18 MB [id number]) Orientation Orientation/Cognition Level of Alertness Confusional State Language Function Ability No Deficits Noted Safety Awareness Decreased Safety Awareness Comments Pt does not answer all questions well with PT and has cognitive challenges with functional command following. OT to perform further cognitive screening. Gross Range of Motion Upper Extremity ROM Impairments Defer to OT Lower Extremity ROM Assessment Left Impaired Strength Comments Strength Comments No MMT post-op and LLE is functionally weak all joints with mobility Sensation Assessment Sensation Gross Sensation WNL M6 PT-IP Treatment Start: 08/24/23 08:36 Freq: NEEDED Status: Active Protocol: Document 08/26/23 08:00 MB (Rec: 08/26/23 08:57 MB [id number]) Physical Therapy Treatment Education Education Provided Precautions,Weight Bearing Status,Post-Op Packet,Safety M7 PT-IP Assessment and Plan Start: 08/24/23 08:36 Freq: NEEDED Status: Active Protocol: Document 08/26/23 08:00 MB (Rec: 08/26/23 08:57 MB [id number]) PT Summary Assessment and Plan Potential Rehabilitation Potential Fair Status of Condition at Evaluation Unstable Summary Impairments Pain,ROM,Strength,Balance, Cognition,Bed Mobility, Transfers,Gait,Activity Tolerance Progress Towards Goals Slow Progress due to Pain,Slow Progress due to Medical Issues,Slow Progress due to Activity Tolerance Assessment Summary Pt and DIL are doing well with family training. Will con't PT as she is in the hospital. Goals Bed Mobility Goal Independent Transfer Goal Standby Assistance,Front Wheeled Walker Gait Goal Standby Assistance,Front Wheel Walker Gait Distance 75 Other Goals Pt will ascend and descend one platform step with RW and no more than SBA to allow safe home entrance. Advance to LRAD to tolerance Days to Meet Goals 5 Frequency of Treatment Frequency Of Treatment Once a Day Treatment Plan Physical Therapy Treatment Plan Bed Mobility Training,Transfer Training,Gait Training, Therapeutic Exercise,Balance Retraining,Discharge Planning Other Recommendations and Next Treatment Platform step with RW practice Focus again as needed Precautions Anterior Hip Precautions No Hip Extension,No Hip External Rotation Weight Bearing Status Weight Bearing Status Weight Bear as Tolerated Recommendations To Nursing Amount of Assist Needed 1 Person Assist Discharge Recommendations PT Discharge Recommendations Home Other Discharge Recommendations BSC, tub bench and transport chair: educated pt and DIL in benefits of these Transportation Needs at Discharge Private Vehicle
--- NOTE | 2023-08-26 09:19 | P.DS_ITS ---
History of Present Illness History of Present Illness Date Patient Seen: 08/23/23 Time Patient Seen: 15:00 Chief complaint: Fall,hip injury Narrative: 77-year-old female seen in the preoperative holding area today in preparation for surgery. She became faint and fell yesterday sustaining a mildly displaced femoral neck fracture. She has pain in the left hip. It is aggravated by movement and partially alleviated by rest. It has been present since the time of injury. It is severe in nature. She is very active at baseline[place] She [place] use ambulatory aids Discharge Providers Provider Date of admission: 08/22/23 18:08 Discharge Date: 08/26/23 Primary care physician: Urvashi Corrales PA-C Consults: 08/22/23 22:46 Consult to THERMOFORMING OPERATOR - Elementary Substitute Teacher Routine Comment: 08/23/23 11:31 Consult to Orthopedic Surgery Routine Comment: Consulting Provider: Gilson Browning Reason for consultation: Femoral neck fracture Has provider been notified: Yes 08/23/23 19:51 Consult to Discharge Planning Routine Comment: Consult to Occupational Therapy Evaluate & Treat Comment: Physician Instructions: Evaluate and treat Consult to Physical Therapy Evaluate & Treat Comment: Physician Instructions: post op JAIDA protocol 08/24/23 08:24 Consult to Physician Routine Comment: Consulting Provider: Rashaad Bradshaw Reason for consultation: pelvic mass 08/25/23 12:53 Consult to Occupational Therapy Evaluate & Treat Comment: Safe Home Mobility Physician Instructions: Front Wheeled Walker Discharge provider: Kamaljit Beckett DO Summary Hospital Course Discharge Diagnosis: 1. Left femoral neck fracture, pathologic, secondary to osteoporosis - no malignant involvement based on CT imaging - orthopedics consulted, performed repair on 08/23 - PT/OT after surgery - home with HH - Aspirin 81mg x4 weeks 2. 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 - discussed with IR who performed CT-guided liver biopsy on 08/25 which was successful - spoke with Dr. Palafox who will f/up with patient in 1 week to discuss biopsy results, they will meet via virtual visit [place] to [place] - PCP office faxing urgent referral to [facility] oncology - patient has f/up appt with Dr. Palafox oncology on Sep 08, 2023 3. Hyponatremia, improving - Na 125, unclear chronicity. Likely hypovolemic as urine sodium in 6. - Na improved initially, then dropped again with IVF - fluid restriction and 1g salt tab TID ordered - improved to 129 - continue salt tabs at home 1g BID for 1 week 4. Suspected chronic microcytic anemia - suspect secondary to chronic blood loss from pelvic mass as noted above. - Goal Hg >7. 5. Advanced care planning - POLST form was completed indicating full treatment. Daughter in law would like to sign durable medical power of show design supervisor paperwork as well. We discussed the patient's current situation, including barriers to discharge and barriers to cancer care at [place] with her hip fracture and that it can be quite complex in this setting. Family is supportive but concerned about living in a remote location. I suggested looking into options closer to cancer treatment centers if she is able to be discharged as typically cancer treatment is done in that setting. For now her goals of care are pretty clear, she would like full treatment and wants to live as long as possible. She would even want feeding tube should she not be able to swallow. Hospital Course: Patient admitted for fall at home resulting in L hip fracture. During the CT scan for the hip, a pelvic mass was incidentally found. CT CAP showed liver and likely lung mets. Presumed GI malignancy, as OBGYN consulted and did not think mass was in nature. IR performed biopsy of liver lesion on 08/[address] Palafox oncology at [facility] willing to see patient for 1st visit as a virtual visit given patient lives on remote [facility]. This was arranged for Sep 08, 2023. He will f/up on the biopsy results at that time. PT cleared patient for home. Sent home with lactulose for constipation (at family's request), aspirin 81mg BID x4 weeks for DVT proph, oxycodone for pain and salt tabs given her sodium was low at 125 on admission and improved to 129 with fluid restriction and salt tabs. Exam Vital Signs (past 8 hours): - 08/26/23 07:00 08/26/23 07:55 Temperature 98.6 F Pulse Rate 78 Respiratory Rate 17 Blood Pressure 103/53 L Pulse Oximetry 96 Oxygen Delivery Method Room Air Oxygen Flow Rate 0 Oxygen Delivery Method Room Air Oxygen Flow Rate 0 Narrative Exam Narrative: Gen: no acute distress in hospital bed Abd: soft, non-tender, non-distended, some firmness in lower abdomen no discrete palpable mass CV: RRR no m/r/g Pulm: CTA b/l with poor inspiratory efford Ext: no edema or joint effusion, L post-op hip dressing in place Neuro: awake, alert, no focal deficits. Objective Labs 08/26/23 04:05 08/26/23 04:05 Labs: Laboratory Results - last 24 hr 08/25/23 08/26/23 12:33 04:05 WBC 9.6 RBC 3.59 L Hgb 9.0 L Hct 27.1 L MCV 75.4 L MCH 25.1 L MCHC 33.2 RDW 16.7 H Plt Count 325 Neut % (Auto) 78.9 H Lymph % (Auto) 11.7 L Crowley % (Auto) 8.0 Eos % (Auto) 0.7 L Baso % (Auto) 0.7 Neut # (Auto) 7600 H Lymph # (Auto) 1100 Crowley # (Auto) 800 Eos # (Auto) 100 Baso # (Auto) 100 Sodium 128 L 129 L Potassium 4.5 Chloride 99 Carbon Dioxide 28 BUN 13 Creatinine 0.61 Estimated GFR > 60 BUN/Creatinine Ratio 21.3 Glucose 104 Calcium 8.0 L PFSH Social History household members: children lives independently: Yes caregiver/support person: Yes (FAWN Stephenson) housing: house Smoking Status: Never smoker alcohol intake: never Discharge Plan Discharge Plan Patient Disposition: Home Health Service Discharge orders & Medications Prescriptions: New aspirin 81 mg Tablet,Delayed Release (Dr/Ec) 81 mg PO BID 28 Days Qty: 56 0RF lactulose 10 gram/15 mL Solution 20 g PO DAILY PRN (Reason: constipation) Qty: 946 0RF oxycodone 5 mg Tablet 5 mg PO Q4-6H PRN (Reason: Pain, Moderate (4-6)) Qty: 30 0RF Rx Instructions: may take 10mg (2 tabs) if pain is severe sodium chloride 1,000 mg Tablet,Soluble 1,000 mg PO BIDWMEAL 7 Days Qty: 14 0RF Follow up/Referrals: Urvashi Corrales PA-C [Primary Care Provider] - Eduin Palafox MD [Physician] - 09/08/23 Visit Report/Discharge Packet Stand Alone Forms: Patient Portal/API, Stroke Signs & Symptoms Discharge Data Primary Care Provider: Urvashi Corrales
--- NOTE | 2023-08-26 09:19 | CM.DPC ---
DCP Cont. Reviewed EMR and spoke with AC team re: pt's status updates. Plan is for pt to d/c today at noon, this [employer] arranged for a taxi to transport. Pt/DIL understand of the plan to f/u with Dr. Palafox for their scheduled appt. next week to review pathology and complete her Oncology consult visit. No further needs indicated at this time for discharge planning.
--- NOTE | 2023-08-26 09:46 | P.PN_ITS ---
Subjective Subjective Date Patient Seen: 08/26/23 Time Patient Seen: 09:30 Interval history: Patient says she is feeling well. He is excited that she is able to go home today. Denies any fever or chills. No increased pain over the wound site. Exam Vital Signs (past 8 hours): - 08/26/23 07:00 08/26/23 07:55 Temperature 98.6 F Pulse Rate 78 Respiratory Rate 17 Blood Pressure 103/53 L Pulse Oximetry 96 Oxygen Delivery Method Room Air Oxygen Flow Rate 0 Oxygen Delivery Method Room Air Oxygen Flow Rate 0 Narrative Exam Narrative: Patient found sitting upright in a wheelchair. Dressing appears to be clean and dry. Able to dorsiflex and plantar flex against resistance at the ankle. Neurovascular grossly intact. Const General: cooperative, healthy appearing and comfortable Resp Effort & Inspection: normal respiratory effort and able to speak in complete sentences Objective Labs 08/26/23 04:05 08/26/23 04:05 Labs: Laboratory Results - last 24 hr 08/25/23 08/26/23 12:33 04:05 WBC 9.6 RBC 3.59 L Hgb 9.0 L Hct 27.1 L MCV 75.4 L MCH 25.1 L MCHC 33.2 RDW 16.7 H Plt Count 325 Neut % (Auto) 78.9 H Lymph % (Auto) 11.7 L Winston % (Auto) 8.0 Eos % (Auto) 0.7 L Baso % (Auto) 0.7 Neut # (Auto) 7600 H Lymph # (Auto) 1100 Winston # (Auto) 800 Eos # (Auto) 100 Baso # (Auto) 100 Sodium 128 L 129 L Potassium 4.5 Chloride 99 Carbon Dioxide 28 BUN 13 Creatinine 0.61 Estimated GFR > 60 BUN/Creatinine Ratio 21.3 Glucose 104 Calcium 8.0 L PFSH Social History household members: children lives independently: Yes caregiver/support person: Yes (FAWN Stephenson) housing: house Smoking Status: Never smoker alcohol intake: never Assessment & Plan Post-op Postoperative Procedures: Procedures Operation Date: 08/23/23 15:00 Actual Procedure Side Surgeon p Left Hip Hemiarthroplasty-anterior approach Left Gilson Browning MD Postoperative day: 3 Postoperative status: doing well Postoperative plan: routine post-op care and discharge Postoperative plan narrative: Patient follow up postoperative protocol. Was explained with patient and [id number] that we recommend following up with [facility] orthopedics in 2 weeks for wound check. They said it may be difficult for them due to their location on [address] [facility]. They are wondering if it was okay for them to follow up on Monday. I explained we do not have clinic on the [facility] and they would have to arrange postoperative care independently Time Spent With Patient Time with patient: less than 15 minutes Quality VTE Deep Vein Thrombosis/Pulmonary Embolism Present on Admission: No
== END 2023-08-26 12:00 | disposition home health service (06) | DRG 522 ==
LOC: ED 15:38 → AC 18:12
PROVIDERS: Internal Medicine; Nurse Anesthetist, Certified Registered; Orthopaedic Surgery Adult Reconstructive Orthopaedic Surgery; Student in an Organized Health Care Education/Training Program; Admitting Provider Internal Medicine; Emergency Provider Emergency Medicine; PCP Physician Assistant; Referring Provider Emergency Medicine; Visit Provider Internal Medicine
PROC: 0SRS0JZ Replacement of Left Hip Joint, Femoral Surface with Synthetic Substitute, Open Approach (ICD-10-PCS; CPT 27125; principal; 2023-08-23 15:00)
DX: M80.052A Age-related osteoporosis with current pathological fracture, left femur, initial encounter for fracture (principal); E87.1 Hypo-osmolality and hyponatremia; C78.7 Secondary malignant neoplasm of liver and intrahepatic bile duct; C78.01 Secondary malignant neoplasm of right lung; R15.9 Full incontinence of feces; C76.3 Malignant neoplasm of pelvis; D50.0 Iron deficiency anemia secondary to blood loss (chronic); Z23 Encounter for immunization
CPT/HCPCS: 36415; 47000; 70450; 71045; 71260; 72125; 73502; 74177; 76000; 76705; 77012; 80048; 80053; 81001; 82378; 83735; 84295; 84300; 85014; 85018; 85025; 85610; 85730; 86304; 90471; 96374; 96376; 97116; 97161; 97167; 97530; 97535; 99233; 99285; C1776; 90715; J0171; J0330; J0690; J1100; J1170; J2250; J2270; J2405; J2704; J3010; J3490; Q9967

== ENCOUNTER 2023-09-04 15:00 | Emergency (ER) | payer MEDICARE, SELFPAY ==
[2023-08-22 22:38] VITALS: BMI 18.8
[2023-09-04] VITALS (26 sets, daily range): BP systolic 94–135; BP diastolic 53–80; PULSE 63–79; RESP 20; TEMP 36.3; O2SAT 93–100; BMI 18.6
--- NOTE | 2023-09-04 15:15 | DI.RAD.S_ITS ---
PROCEDURE: XR HIP W PEL IF DONE LT 2V INDICATIONS: recent hip replacement, increasing pain TECHNIQUE: AP pelvis with lateral view(s) of the left hip(s). COMPARISON: [facility], CR, XR HIP W PEL IF DONE LT 2V, 08/23/2023, 19:36. [facility], CR, XR HIP W PEL IF DONE LT 2V, 08/23/2023, 18:14. FINDINGS: Bones: No fractures or dislocations. Stable appearance of left hip arthroplasty. The hardware appears intact without surrounding fracture or lucency. Pelvic ring appears intact. No suspicious bony lesions. Soft tissues: The visualized bowel gas pattern is normal. No suspicious soft tissue calcifications. Large burden of stool. IMPRESSION: No acute osseous abnormalities. Stable appearance of left hip arthroplasty without evidence of complication. Large burden of stool visualized in the lower abdomen, correlate for constipation. Dictated by: Juan Alberto Adams M.D. on 09/04/2023 at 16:19 Approved by: Juan Alberto Adams M.D. on 09/04/2023 at 16:22
[2023-09-04] MEDS: HYDROMORPHONE 1 MG INJ IV (16:31)
[2023-09-04 18:42] LABS: Add Manual Diff / Slide Review NO; Basophils Absolute Auto 100 /uL (0-100); Basophils Percent Auto 0.8 % (0-2); Eosinophils Absolute Auto 100 /uL (0-450); Eosinophils Percent Auto 0.4 % (2-4); Hematocrit 29.8 % (36-46); Hemoglobin 9.8 g/dL (12.0-16.0); Lymphocytes Absolute Auto 1200 /uL (1100-4500); Lymphocytes Percent Auto 7.8 % (25-40); Mean Corpuscular HGB Conc 32.9 % (30-36); Mean Corpuscular Hemoglobin 24.5 PG (26-34); Mean Corpuscular Volume 74.4 fL (80-100); Monocytes Absolute Auto 800 /uL (0-900); Monocytes Percent Auto 5.6 % (3-14); Neutrophils Absolute Auto 12900 /uL (1500-7000); Neutrophils Percent Auto 85.4 % (50-75); Platelet Count 561 X10^3/uL (150-400); Red Cell Distribution Width 16.5 % (11.6-14.8); White Blood Cell Count 15.1 X10^3/uL (4.5-11.0)
[2023-09-04 18:53] LABS: Lactate (Lactic Acid) 1.9 mmol/L (0.7-2.1)
[2023-09-04 18:57] LABS: Alanine Aminotransferase 21 IU/L (<35); Albumin 2.3 g/dL (3.5-5.0); Albumin Globulin Ratio 0.8 (1.0-2.8); Alkaline Phosphatase 152 U/L (38-126); Aspartate Aminotransferase 43 IU/L (14-36); BUN Creatinine Ratio 36.4 (6-22); Bilirubin Total 0.5 mg/dL (0.2-1.3); Blood Urea Nitrogen 16 mg/dL (7-17); C-Reactive Protein Quant 5.2 mg/dL (<1.0); Carbon Dioxide 28 mmol/L (22-32); Chloride 97 mmol/L (98-107); Estimated Glomerular Filt Rate > 60 mL/min (>60); Globulin 2.9 g/dL (1.7-4.1); Glucose 87 mg/dL (80-110); HEMOLYSIS 20 (0-50); Potassium 3.6 mmol/L (3.4-5.1); Sodium 129 mmol/L (137-145); Total Protein 5.2 g/dL (6.3-8.2)
--- NOTE | 2023-09-04 19:02 | ED_ITS ---
HPI - Extremity Injury (Lower) General Chief Complaint: Extremity Injury, Lower Stated Complaint: Lt hip px Time Seen by Provider: 09/04/23 15:13 Source: patient and EMS Mode of arrival: EMS History of Present Illness HPI Narrative: Patient 77-year-old female with new diagnosis of metastatic presumed colon cancer left hip fracture presenting today with fever and left hip pain. She fell August 22 found to have left hip fracture and subsequently found to have a very large pelvic mass. She was admitted to the hospital August 22 through the . It is recommend that she go to a sniff at discharge however she ultimately wanted to go home. She is here with daughter today who states that she was doing well getting up with a walker moving around. However last night she had chills and rigors and had extreme left hip pain. She is able to move it now she is afebrile. However [place] She has no chest pain shortness of breath and vomiting. Daughter reports that she was more confused last night as well but seems a bit better today. She is afebrile here in the ED Related Data Previous Rx's Medication Instructions Recorded aspirin 81 mg tablet,delayed 81 mg PO BID 4 weeks #56 tabs 08/26/23 release lactulose 10 gram/15 mL oral 20 g (30 mL) PO DAILY PRN 08/26/23 solution constipation #946 mL oxycodone 5 mg tablet 5 mg PO Q4-6H PRN Pain, Moderate 09/05/23 (4-6) #30 tabs Allergies Allergy/AdvReac Type Severity Reaction Status Date / Time codeine Allergy Verified 08/22/23 14:29 Patient History Social History household members: children lives independently: Yes caregiver/support person: Yes (FAWN Stephenson) housing: house Smoking Status: Never smoker alcohol intake: never Smoking Status: Never smoker alcohol intake frequency: other Substance Use Type: does not use Exam Initial Vital Signs Initial Vital Signs: Vital Signs Pulse Rate 67 09/04/23 15:03 Blood Pressure 118/73 09/04/23 15:03 Pulse Oximetry 96 09/04/23 15:03 GENERAL: Alert pleasant 77-year-old female and in [no acute] distress. HEENT: Head atraumatic,EOMI, pupils reactive, face symmetric, [moist] mucous membranes CARDIOVASCULAR: Regular rate and rhythm without murmurs, rubs or gallops. RESPIRATORY: Breath sounds equal bilaterally, no wheezes rales or rhonchi. ABDOMEN: Soft, nontender. Normoactive bowel sounds all 4 quadrants. No guarding or rebound. EXTREMITIES: Normal range of motion, no clubbing or edema. Neurovascularly intact NEUROLOGICAL: Alert and oriented x4.Normal gait and speech. SKIN: Incision site left hip non erythematous minimally tender no gross drainage Course Orders Ordered: Discontinued Medications Hydromorphone HCl (Hydromorphone 1 Mg Inj) 1 mg IV NOW ONE Stop: 09/04/23 16:04 Last Admin: 09/04/23 16:31 Dose: 1 mg Documented By: MARIMAR Sodium Chloride (Normal Saline 0.9%) 1,000 mls @ 1,000 mls/hr IV BOLUS ONE Stop: 09/04/23 20:14 Last Infusion: 09/04/23 21:25 Dose: Infused Documented By: Admin: 09/04/23 20:15 Dose: 1,000 mls/hr Documented By: CAN Sodium Chloride (Normal Saline 0.9%) 1,000 mls @ 150 mls/hr IV CONT BUSHRA Last Infusion: 09/05/23 13:20 Dose: Infused Documented By: Admin: 09/05/23 06:20 Dose: 150 mls/hr Documented By: Infusion: 09/05/23 06:01 Dose: Infused Documented By: Admin: 09/04/23 23:20 Dose: 150 mls/hr Documented By: CAN Morphine Sulfate (Morphine 2 Mg/Ml Inj) 2 mg IV Q4HR PRN PRN Reason: Pain, Moderate (4-6) Last Admin: 09/05/23 06:13 Dose: 2 mg Documented By: CAN Vital Signs Vital signs: Vital Signs - 8 hr 09/04/23 19:30 09/04/23 19:30 09/04/23 20:00 Pulse Rate 68 65 Blood Pressure 117/62 Pulse Oximetry 95 Oxygen Delivery Method Room Air Oxygen Flow Rate 09/04/23 20:00 09/04/23 20:21 09/04/23 20:21 Pulse Rate 66 Blood Pressure 100/59 L 113/60 Pulse Oximetry 95 Oxygen Delivery Method Room Air Oxygen Flow Rate 09/04/23 20:30 09/04/23 20:30 09/04/23 21:00 Pulse Rate 66 Blood Pressure 110/59 L 109/57 L Pulse Oximetry 95 Oxygen Delivery Method Room Air Oxygen Flow Rate 09/04/23 21:00 09/04/23 21:30 09/04/23 21:30 Pulse Rate 68 72 Blood Pressure 101/58 L Pulse Oximetry 93 Oxygen Delivery Method Room Air Oxygen Flow Rate 09/04/23 22:00 09/04/23 22:00 09/04/23 22:30 Pulse Rate 72 Blood Pressure 94/54 L 94/56 L Pulse Oximetry 93 Oxygen Delivery Method Room Air Oxygen Flow Rate 09/04/23 22:30 09/04/23 22:35 09/04/23 22:35 Pulse Rate 70 77 Blood Pressure 99/59 L Pulse Oximetry 100 97 Oxygen Delivery Method Room Air Room Air Oxygen Flow Rate 09/04/23 23:00 09/04/23 23:00 09/04/23 23:30 Pulse Rate 74 77 Blood Pressure 105/57 L Pulse Oximetry 98 93 Oxygen Delivery Method Room Air Room Air Oxygen Flow Rate 09/04/23 23:40 09/04/23 23:41 09/04/23 23:41 Pulse Rate 79 79 Blood Pressure 101/57 L Pulse Oximetry 100 100 Oxygen Delivery Method Room Air Oxygen Flow Rate 09/04/23 23:42 09/04/23 23:42 09/05/23 00:00 Pulse Rate 77 73 Blood Pressure 101/53 L Pulse Oximetry 100 99 Oxygen Delivery Method Room Air Oxygen Flow Rate 09/05/23 00:00 09/05/23 00:30 09/05/23 00:30 Pulse Rate 92 H Blood Pressure 93/53 L 98/56 L Pulse Oximetry Oxygen Delivery Method Oxygen Flow Rate 09/05/23 01:00 09/05/23 01:00 09/05/23 01:28 Pulse Rate 78 Blood Pressure 93/54 L Pulse Oximetry 92 91 Oxygen Delivery Method Room Air Room Air Oxygen Flow Rate 09/05/23 01:30 09/05/23 01:30 09/05/23 01:30 Pulse Rate 71 Blood Pressure 102/56 L Pulse Oximetry 98 99 Oxygen Delivery Method Nasal Cannula Nasal Cannula Oxygen Flow Rate 1 1 09/05/23 02:00 09/05/23 02:00 09/05/23 02:30 Pulse Rate 72 Blood Pressure 95/53 L 125/72 Pulse Oximetry 99 Oxygen Delivery Method Nasal Cannula Oxygen Flow Rate 1 09/05/23 02:30 09/05/23 03:00 09/05/23 03:00 Pulse Rate 71 70 Blood Pressure 129/68 Pulse Oximetry 97 96 Oxygen Delivery Method Nasal Cannula Nasal Cannula Oxygen Flow Rate 1 1 MDM - Extremity Injury (Lower) Lab Data 09/05/23 06:54 09/05/23 06:54 Labs: Lab Results 09/04/23 09/04/23 09/05/23 Range/Units 18:15 19:55 00:46 WBC 15.1 H (4.5-11.0) X10^3/uL RBC 4.00 (4.0-5.2) X10^6/uL Hgb 9.8 L (12.0-16.0) g/dL Hct 29.8 L (36-46) % MCV 74.4 L (80-100) fL MCH 24.5 L (26-34) PG MCHC 32.9 (30-36) % RDW 16.5 H (11.6-14.8) % Plt Count 561 H (150-400) X10^3/uL Neut % (Auto) 85.4 H (50-75) % Lymph % (Auto) 7.8 L (25-40) % [place] % (Auto) 5.6 (3-14) % Eos % (Auto) 0.4 L (2-4) % Baso % (Auto) 0.8 (0-2) % Neut # (Auto) 75352 H (9075-4532) /uL Lymph # (Auto) 1200 (1670-4811) /uL [place] # (Auto) 800 (0-900) /uL Eos # (Auto) 100 (0-450) /uL Baso # (Auto) 100 (0-100) /uL ESR 36 H (0-20) MM/HR Sodium 129 L (137-145) mmol/L Potassium 3.6 (3.4-5.1) mmol/L Chloride 97 L (98-107) mmol/L Carbon Dioxide 28 (22-32) mmol/L BUN 16 (7-17) mg/dL Creatinine 0.44 L (0.52-1.04) mg/dL Estimated GFR > 60 (>60) mL/min BUN/Creatinine Ratio 36.4 H (6-22) Glucose 87 (80-110) mg/dL Lactate 1.9 1.8 (0.7-2.1) mmol/L Calcium 8.0 L (8.4-10.2) mg/dL Total Bilirubin 0.5 (0.2-1.3) mg/dL AST 43 H (14-36) IU/L ALT 21 (<35) IU/L Alkaline Phosphatase 152 H (38-126) U/L C-Reactive Protein 5.2 H (<1.0) mg/dL Total Protein 5.2 L (6.3-8.2) g/dL Albumin 2.3 L (3.5-5.0) g/dL Globulin 2.9 (1.7-4.1) g/dL Albumin/Globulin Ratio 0.8 L (1.0-2.8) Procalcitonin 0.21 (<0.5) ng/mL Urine Color Yellow Urine Appearance Clear Urine pH 6.0 (4.5-8.0) Ur Specific [place] 1.020 (1.000-1.035) Urine Protein Negative (Negative) Urine Glucose (UA) Negative (Negative) g/dL Urine Ketones Negative (NEGATIVE) Urine Occult Blood Negative (Negative) Urine Nitrate Negative (Negative) Urine Bilirubin Negative (NEGATIVE) Urine Urobilinogen 4.0 H (0.2) E.U./dL Ur Leukocyte Esterase Negative (NEGATIVE) Urine RBC 0-1/hpf (0-5/HPF) Urine WBC None seen (0-5/HPF) Ur Squamous Epith Cells 0-1 /hpf (0-5/HPF) Urine Bacteria None seen (None) Ur Culture Indicated? Cult not indicated SARS-CoV-2 (PCR) Negative (Negative) Influenza A (RT-PCR) Flu a negative (NEGATIVE) Influenza B (RT-PCR) Flu b negative (NEGATIVE) RSV (PCR) Negative (Negative) 09/05/23 Range/Units 06:54 WBC 13.7 H (4.5-11.0) X10^3/uL RBC 3.74 L (4.0-5.2) X10^6/uL Hgb 9.1 L (12.0-16.0) g/dL Hct 28.2 L (36-46) % MCV 75.4 L (80-100) fL MCH 24.4 L (26-34) PG MCHC 32.3 (30-36) % RDW 17.0 H (11.6-14.8) % Plt Count 580 H (150-400) X10^3/uL Neut % (Auto) 92.1 H (50-75) % Lymph % (Auto) 2.5 L (25-40) % [place] % (Auto) 4.7 (3-14) % Eos % (Auto) 0.2 L (2-4) % Baso % (Auto) 0.5 (0-2) % Neut # (Auto) 18517 H (3556-4155) /uL Lymph # (Auto) 300 L (1746-0510) /uL [place] # (Auto) 700 (0-900) /uL Eos # (Auto) 0 (0-450) /uL Baso # (Auto) 100 (0-100) /uL ESR (0-20) MM/HR Sodium 129 L (137-145) mmol/L Potassium 3.6 (3.4-5.1) mmol/L Chloride 100 (98-107) mmol/L Carbon Dioxide 25 (22-32) mmol/L BUN 15 (7-17) mg/dL Creatinine 0.48 L (0.52-1.04) mg/dL Estimated GFR > 60 (>60) mL/min BUN/Creatinine Ratio 31.3 H (6-22) Glucose 106 (80-110) mg/dL Lactate (0.7-2.1) mmol/L Calcium 7.6 L (8.4-10.2) mg/dL Total Bilirubin (0.2-1.3) mg/dL AST (14-36) IU/L ALT (<35) IU/L Alkaline Phosphatase (38-126) U/L C-Reactive Protein (<1.0) mg/dL Total Protein (6.3-8.2) g/dL Albumin (3.5-5.0) g/dL Globulin (1.7-4.1) g/dL Albumin/Globulin Ratio (1.0-2.8) Procalcitonin (<0.5) ng/mL Urine Color Urine Appearance Urine pH (4.5-8.0) Ur Specific [place] (1.000-1.035) Urine Protein (Negative) Urine Glucose (UA) (Negative) g/dL Urine Ketones (NEGATIVE) Urine Occult Blood (Negative) Urine Nitrate (Negative) Urine Bilirubin (NEGATIVE) Urine Urobilinogen (0.2) E.U./dL Ur Leukocyte Esterase (NEGATIVE) Urine RBC (0-5/HPF) Urine WBC (0-5/HPF) Ur Squamous Epith Cells (0-5/HPF) Urine Bacteria (None) Ur Culture Indicated? SARS-CoV-2 (PCR) (Negative) Influenza A (RT-PCR) (NEGATIVE) Influenza B (RT-PCR) (NEGATIVE) RSV (PCR) (Negative) Imaging Data CT scan - abdomen/pelvis: Radiologist's Impression: PROCEDURE: CT PELVIS W CON INDICATIONS: left hip pain fever recent replacement TECHNIQUE: After the administration of intravenous contrast, 5 mm thick sections acquired from the iliac crests to the symphysis. 5 mm coronal and sagittal reformats were acquired. For radiation dose reduction, the following was used: automated exposure control, adjustment of mA and/or kV according to patient size. COMPARISON: [facility], CR, XR HIP W PEL IF DONE LT 2V, 09/04/2023, 15:38. FINDINGS: Image quality: Diagnostic, however there is significant metallic artifact around the hip Lower abdomen: Moderate to large fecal loading is partially seen. Small amount pelvic free fluid. Bladder: Under distended, [place] in place Reproductive organs: Uterus is not seen. Pelvic mass, with necrotic components is present Rectum: There is wall thickening. Perirectal fat stranding also present. Vessels and lymph nodes: No aneurysmal vessel in the field of view. Pelvic mass as described above. Pelvic wall: There is a fluid collection at the left trochanteric bursa measuring 3 by 5.8 cm (). Diffuse pelvic wall anasarca. Within the limitations of metallic artifact, there is also suspected mhgn-hj-qozfcgwg fluid around the left hip arthroplasty is, for example coronal image 24 measuring 4.3 x 1.8 cm. Bones: Left hip arthroplasty and degenerative changes. IMPRESSION: Left trochanteric bursal fluid and periarticular fluid, which may be postsurgical versus infected. Pelvic mass. Please see recent CT chest abdomen pelvis report for other findings. Moderate to large fecal loading. Small amount pelvic free fluid. Rectal wall thickening may represent proctitis versus malignant extension. Dictated by: Tho Colin M.D. on 09/04/2023 at 20:28 [facility] Narrative Medical decision making narrative: Patient is 77-year-old female with newly diagnosed metastatic colon cancer presenting with reported fever last night and increasing left hip pain. There is no obvious sign of infection at the incision site. Mental status is stable. To move her hip with minimal amount of pain. No concern for cellulitis or septic joint she is afebrile here. Blood work has been reviewed: She is leukocytosis 15, anemia stable hemoglobin 9.8 and hematocrit 29.8 previously 9.0 and 27.1, stable hyponatremia sodium 129 chloride 97 carbon dioxide 28, creatinine 0.04, lactate 1.9 repeat 1.8, CRP 5.2, ESR 36 Imaging x-ray does not show fracture, CT does show trochanteric bursal fluid post surgical versus infection 9:15 Dr. Browning, orthopedics updated on patient's symptoms test results. He reports that elevated CV are P post surgery and mild fluid collection are to be expected. Agrees that without significant pain no concern for infection. No obvious source of infection. She does have mild leukocytosis of 15 she does not have a UTI viral panel is negative. No sign of cellulitis or concern for septic joint. At this time no real admission criteria has been met. However she is not doing well at home multiple comorbidities requiring more assistance than needed. Briefly discussed with hospitalist who agreed that she does not yet meet admission criteria. Will have social worker psychiatric evaluate her in the morning. Blood pressure did decrease slightly into the 90s. She is given maintenance IV fluids repeat lactate is 1.[address] Justin Discharge Plan Departure Patient Disposition: SNF Clinical Impression: Fracture of femoral neck, left Prescriptions: Continued aspirin 81 mg Tablet,Delayed Release (Dr/Ec) 81 mg PO BID 28 Days Qty: 56 0RF lactulose 10 gram/15 mL Solution 20 g PO DAILY PRN (Reason: constipation) Qty: 946 0RF oxycodone 5 mg Tablet 5 mg PO Q4-6H PRN (Reason: Pain, Moderate (4-6)) Qty: 30 0RF Rx Instructions: may take 10mg (2 tabs) if pain is severe SNF Discharge Plan Transfer to: [facility] I certify the postop hospital senior living care is medically necessary on a continuing basis for any conditions for which he/ she received care during this hospitalization.: Yes The receiving facility has agreed to accept transfer and provide medical treatment.: Yes Diet/Activity/Treatments Diet: Diet as Tolerated Liquid consistency: Normal/Thin Food texture: Regular Special Rehabilitation Services Reason for rehabilitation: Recovery r/t decondition Rehab type: Physical therapy and Occupational therapy
[2023-09-04 19:11] LABS: Procalcitonin 0.21 ng/mL (<0.5)
[2023-09-04 19:13] LABS: Erythrocyte Sedimentation Rate 36 MM/HR (0-20)
--- NOTE | 2023-09-04 19:24 | DI.CT.S_ITS ---
PROCEDURE: CT PELVIS W CON INDICATIONS: left hip pain fever recent replacement TECHNIQUE: After the administration of intravenous contrast, 5 mm thick sections acquired from the iliac crests to the symphysis. 5 mm coronal and sagittal reformats were acquired. For radiation dose reduction, the following was used: automated exposure control, adjustment of mA and/or kV according to patient size. COMPARISON: [facility], CR, XR HIP W PEL IF DONE LT 2V, 09/04/2023, 15:38. FINDINGS: Image quality: Diagnostic, however there is significant metallic artifact around the hip Lower abdomen: Moderate to large fecal loading is partially seen. Small amount pelvic free fluid. Bladder: Under distended, [place] in place Reproductive organs: Uterus is not seen. Pelvic mass, with necrotic components is present Rectum: There is wall thickening. Perirectal fat stranding also present. Vessels and lymph nodes: No aneurysmal vessel in the field of view. Pelvic mass as described above. Pelvic wall: There is a fluid collection at the left trochanteric bursa measuring 3 by 5.8 cm (2/49). Diffuse pelvic wall anasarca. Within the limitations of metallic artifact, there is also suspected movu-ep-heiyvgil fluid around the left hip arthroplasty is, for example coronal image 24 measuring 4.3 x 1.8 cm. Bones: Left hip arthroplasty and degenerative changes. IMPRESSION: Left trochanteric bursal fluid and periarticular fluid, which may be postsurgical versus infected. Pelvic mass. Please see recent CT chest abdomen pelvis report for other findings. Moderate to large fecal loading. Small amount pelvic free fluid. Rectal wall thickening may represent proctitis versus malignant extension. Dictated by: Tho Colin M.D. on 09/04/2023 at 20:28 Approved by: Tho Colin M.D. on 09/04/2023 at 20:33
[2023-09-04 20:04] LABS: Appearance Urine UA CLEAR; Bilirubin Urine UA NEGATIVE (NEGATIVE); Color Urine UA YELLOW; Glucose Urine UA NEGATIVE (Negative); Ketones Urine UA NEGATIVE (NEGATIVE); Leukocyte Esterase Urine UA NEGATIVE (NEGATIVE); Nitrite Urine UA NEGATIVE (Negative); Occult Blood Urine UA NEGATIVE (Negative); Protein Urine UA NEGATIVE (Negative)
[2023-09-04] MEDS: SODIUM CHLORIDE 0.9% 1,000 ML 1000 ML IV (20:15)
[2023-09-04 20:17] LABS: Bacteria Urine None Seen; Culture Indicated Urine Cult Not Indicated; RBC Urine 0-1/HPF (0-5/HPF); Squamous Epithelial Cell Urine 0-1 /HPF (0-5/HPF); WBC Urine None Seen (0-5/HPF)
[2023-09-04 20:37] LABS: Influenza A - CEPHEID Flu A NEGATIVE (NEGATIVE); Influenza B - CEPHEID Flu B NEGATIVE (NEGATIVE); Respiratory Syncytial Virus Negative (Negative)
[2023-09-04 20:38] LABS: COVID-19 CEPHEID 4-PLEX PCR Negative (Negative)
[2023-09-04] MEDS: SODIUM CHLORIDE 0.9% 1,000 ML 150 ML IV (23:20)
[2023-09-05] VITALS (33 sets, daily range): BP systolic 91–129; BP diastolic 53–72; PULSE 67–106; RESP 14; O2SAT 2–99
[2023-09-05 01:08] LABS: Lactate (Lactic Acid) 1.8 mmol/L (0.7-2.1)
[2023-09-05] MEDS: MORPHINE 2 MG/ML INJ IV (06:13)
[2023-09-05] MEDS: SODIUM CHLORIDE 0.9% 1,000 ML 150 ML IV (06:20)
[2023-09-05 07:04] LABS: Add Manual Diff / Slide Review NO; Basophils Absolute Auto 100 /uL (0-100); Basophils Percent Auto 0.5 % (0-2); Eosinophils Absolute Auto 0 /uL (0-450); Eosinophils Percent Auto 0.2 % (2-4); Hematocrit 28.2 % (36-46); Hemoglobin 9.1 g/dL (12.0-16.0); Lymphocytes Absolute Auto 300 /uL (1100-4500); Lymphocytes Percent Auto 2.5 % (25-40); Mean Corpuscular HGB Conc 32.3 % (30-36); Mean Corpuscular Hemoglobin 24.4 PG (26-34); Mean Corpuscular Volume 75.4 fL (80-100); Monocytes Absolute Auto 700 /uL (0-900); Monocytes Percent Auto 4.7 % (3-14); Neutrophils Absolute Auto 12600 /uL (1500-7000); Neutrophils Percent Auto 92.1 % (50-75); Platelet Count 580 X10^3/uL (150-400); Red Blood Cell Count 3.74 X10^6/uL (4.0-5.2); White Blood Cell Count 13.7 X10^3/uL (4.5-11.0)
--- NOTE | 2023-09-05 07:20 | PC.NURSE ---
Pt stting up in bed. A&ox4 and answers all questions appropriately. Pain reassessed and rates pain as 5/10 but states she fells sleepy. Pt sat 93% on 2L NC. Daughter at bedside.
[2023-09-05 07:34] LABS: BUN Creatinine Ratio 31.3 (6-22); Blood Urea Nitrogen 15 mg/dL (7-17); Calcium 7.6 mg/dL (8.4-10.2); Carbon Dioxide 25 mmol/L (22-32); Chloride 100 mmol/L (98-107); Estimated Glomerular Filt Rate > 60 mL/min (>60); Glucose 106 mg/dL (80-110); HEMOLYSIS < 15 (0-50); Potassium 3.6 mmol/L (3.4-5.1); Sodium 129 mmol/L (137-145)
--- NOTE | 2023-09-05 07:56 | PC.NURSE ---
Pt received breakfast tray from dietary. Pt sitting up in bed and o2 sat dropped to 87% with good pleth while on 2L NC. Increased on to 3L NC and pt still sating at 87%. Increased o2 to 4L NC and pt now sating 98%. Pt a&ox4
--- NOTE | 2023-09-05 09:52 | PC.NURSE ---
PROTOTYPE CARPENTER at bedside to consult.
--- NOTE | 2023-09-05 10:58 | PT.IIE ---
Physical Therapy Inpatient Evaluation/Re-Eval M1 PT/OT-IP Prior Functional Status Start: 09/05/23 10:04 Freq: Status: Active Protocol: Document 09/05/23 10:43 ALYCIA (Rec: 09/05/23 10:58 [facility] [id number]) Medical Review Prior Functional Status Medical History Reviewed Yes Diet/Fluid Consistency Regular Communication A and O x 4. Mobility and Gait modified indep Activities of Daily Living and IADL's modified indep Prior Functional Level (Other details) lives with son and family Social History Household Members children Living Arrangements House Number of Floors (Floors) Two Floors Home Environment Standard Height Toilet Home Equipment Front Wheel Walker,Raised Toilet Seat w/Armrests Employment Status Retired Additional Social History Comment Lives on [facility] M2 PT-IP Current Condition Start: 09/05/23 10:04 Freq: Status: Active Protocol: Document 09/05/23 10:43 ALYCIA (Rec: 09/05/23 10:58 ALYCIA [id number]) Physical Therapy Current Condition Current Condition Evaluation Date 09/05/23 Treatment Diagnosis uncontrolled pain, s/p left JAIDA 08/23/23 M3 PT-IP Subjective Start: 09/05/23 10:04 Freq: Status: Active Protocol: Document 09/05/23 10:43 ALYCIA (Rec: 09/05/23 10:58 [facility] [id number]) Subjective Physical Therapy Visit Type Type Initial Evaluation Visit Stop Time 10:10 Total Visit Minutes 1,045 Number of SERVICE LINE LAYER Visits 0 Physical Therapy Visit Comments Patient Comments Patient reports she has been laying down since got to ER last night, looking forward to moving Patient Goals improve her strength and mobility Therapy Pain Assessment Pain When Pain Assessed During Mobility Pain Present Pain Present Denied Pain Location left hip Scale Used Numeric (0 - 10) Pain Management Techniques Timing of Activity with Medications M4 PT-IP Mobility and Gait Start: 09/05/23 10:04 Freq: Status: Active Protocol: Document 09/05/23 10:43 ALYCIA (Rec: 09/05/23 10:58 [facility] [id number]) PT-Bed Mobility Assessment Supine to Sit Supine to Sit Minimal Assistance Sit to Supine Sit to Supine Minimal Assistance Scooting Scooting to Edge of Bed Minimal Assistance Scooting Up and Down in Bed Minimal Assistance PT-Transfer Assessment Sit to and From Stand Sit to and from Stand Contact Guard Assistance, Minimal Assistance Equipment Transfer Assistive Device Gait Belt,Front Wheeled Walker Transfer Ability Level of Assist Contact Guard Assistance, Minimal Assistance,Use of Upper Extremities Comments Mobility Comments cues for hand placement for safety Gait Assessment Gait Gait Assistance Required: Contact Guard Assist Distance (Feet) 10 Able to Maintain Weight Bearing Status Yes During Gait Assistive Devices Assistive Device Front Wheeled Walker Orthotic/Prosthetic Devices or Brace: No Gait Deviations General Gait Pattern Decreased Stride Length, Decreased Feet Clearance, Flexed Trunk Factors Limiting Gait Function Factors Limiting Gait Function Decreased Activity Tolerance, Decreased Strength PT-Balance Assessment Sitting Balance and Reactions Static Sitting Balance Ability Normal Dynamic Sitting Balance Ability Normal Standing Balance and Reactions Static Standing Balance Ability Good Dynamic Standing Balance Ability Good Device Used FWW M5 PT-IP Objective Assessments Start: 09/05/23 10:04 Freq: Status: Active Protocol: Document 09/05/23 10:43 [facility] (Rec: 09/05/23 10:58 [facility] [id number]) Orientation Orientation/Cognition Level of Alertness Alert Orientation Name,Place,Situation Language Function Ability No Deficits Noted Safety Awareness Decreased Safety Awareness Gross Range of Motion Upper Extremity ROM Assessment Within Functional Limits Lower Extremity ROM Assessment Within Functional Limits Strength Upper Extremity Strength Assessment Within Functional Limits Comments Strength Comments right grossly 4+/5 left grossly 3-/5 hip, 4+/5 knee and ankle Sensation Assessment Sensation Gross Sensation WNL Comments Sensation Comments denies N/T Muscle Tone Muscle Tone WNL Yes M6 PT-IP Treatment Start: 09/05/23 10:04 Freq: Status: Active Protocol: Document 09/05/23 10:43 [facility] (Rec: 09/05/23 10:58 [facility] [id number]) Physical Therapy Treatment Exercises Exercises Ankle Pumps,Gluteal Sets,Quad Sets,Heel Slides Education Education Provided Precautions M7 PT-IP Assessment and Plan Start: 09/05/23 10:04 Freq: Status: Active Protocol: Document 09/05/23 10:43 [facility] (Rec: 09/05/23 10:58 [facility] [id number]) PT Summary Assessment and Plan Potential Rehabilitation Potential Good Status of Condition at Evaluation Evolving Summary Impairments Bed Mobility,Transfers,Gait, Activity Tolerance Assessment Summary Patient seen in ED due to coming in for uncontrolled pain. Now on Morphine and on O2 per nc at 3L. Patient denied pain during PT visit except mild with mobility. Wbeahzya-zu-lry present and reports at home patient was shaking due to the severe pain . Patient had left JAIDA and went home from hospital despite recommendations for rehab. Feel she would benefit highly from inpatient rehab/ SNF rehab at this time to help her fully recover from her JAIDA and return safely; at this time she requires min assist for all mobility skills, and needed cues for safety with her mobility. Discussed this with patient and daughter-in- law and they are in agreement for need for inpatient rehab prior to return home. Goals Bed Mobility Goal Contact Guard Assistance Transfer Goal Contact Guard Assistance Gait Goal Contact Guard Assistance Gait Distance 50 Other Goals demonstrate safe hand placement with transfers and be able to verbalize JAIDA precautions Days to Meet Goals 3 Frequency of Treatment Frequency Of Treatment Twice a Day Treatment Plan Physical Therapy Treatment Plan Bed Mobility Training,Transfer Training,Gait Training, Therapeutic Exercise,Post Op Education,Discharge Planning, Hot or Cold Pack Precautions Anterior Hip Precautions No Hip Extension,No Hip External Rotation Weight Bearing Status Weight Bearing Status Weight Bear as Tolerated Recommendations To Nursing Amount of Assist Needed 1 Person Assist Discharge Recommendations PT Discharge Recommendations SNF Rehab,SNF vs Acute Rehab Transportation Needs at Discharge Wheelchair/Cabulance
--- NOTE | 2023-09-05 10:59 | PC.NURSE ---
Pt up with PT for evaluation. Pt denies pain after PT eval and states that she feels ok. Pt o2 sat 96% on RA. A&Ox4.
--- NOTE | 2023-09-05 12:21 | CM.SWNOTE ---
TAVERN KEEPER Note This TAVERN KEEPER requested for consult to assess needs and assist with coordination of discharge plan for this 77 yo F, presents with pain and fever. Patient medically cleared for discharge from the ER, patient and daughter are requesting discharge to SNF. Patient lives with her son, OMI and 14 yo grand dtr on [facility], accessible only by aircraft and private boat. Their home is a fully functional solar powered home off the grid per DIL. no electricity or water supply from the [facility]. Patient recently discharged from after a GLF/hip fx and hip repair. Therapies were recommending SNF. During the CT scan for the hip, a pelvic mass was incidentally found. 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 Patient has a tele health visit with Dr Palafox, oncologist to discuss the findings. Reviewed discharge plan options with patient and DIL at bedside, patient requesting [facility]. Reviewed [facility] benefit. Discussed referral with Dian at [facility] who ultimately accepted for admission this afternoon bulk picker at 1400. Dr Beckett assisted DR Justin with the SNF discharge orders and med list which was faxed to [facility] along with [facility]. Plan: Discharge to [facility] via wheelchair van. [facility] SN[facility] benefit in place after recent inpatient admission. KASH Sarkar
== END 2023-09-05 14:00 ==
PROVIDERS: Emergency Medicine; Emergency Provider Emergency Medicine; PCP Physician Assistant
DX: S72.002A Fracture of unspecified part of neck of left femur, initial encounter for closed fracture (principal); R50.9 Fever, unspecified; Z20.822 Contact with and (suspected) exposure to COVID-19
CPT/HCPCS: 0241U; 36415; 72193; 73502; 80048; 80053; 81001; 83605; 84145; 85025; 85651; 86140; 87040; 87077; 96361; 96374; 96375; 97162; 99284; J1170; J2270; Q9967

== ENCOUNTER → 2023-09-14 16:13 | Outpatient (CLI) | payer MEDICARE, SELFPAY ==
[2023-08-22 22:38] VITALS: BMI 18.8
--- NOTE | 2023-09-14 | DI.RAD.S_ITS ---
PROCEDURE: XR ABDOMEN 1V INDICATIONS: ABDOMINAL PAIN TECHNIQUE: 2 view of the abdomen acquired. COMPARISON: [facility], CT, CT PELVIS W CON, 09/04/2023, 19:32. FINDINGS: Surgical changes and devices: None. Bowel: Large amount of stool projects over the colon. Slightly more than expected amount of gas also project over the small colon. No evidence of bowel obstruction. Soft tissues: Large amount of surgical clips project over the left abdomen. 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 Partially visualized left hip arthroplasty hardware noted. IMPRESSION: No evidence of bowel obstruction More than expected amount of stool and air projecting over the bowel; correlate with constipation versus enteritis. Dictated by: Rashaad Hernandez M.D. on 09/15/2023 at 8:27 Approved by: Rashaad Hernandez M.D. on 09/15/2023 at 8:36
== END ==
PROVIDERS: PCP Physician Assistant; Referring Provider Nurse Practitioner; Visit Provider Nurse Practitioner
DX: R10.9 Unspecified abdominal pain (principal)
CPT/HCPCS: 74018